=== PATIENT | male | born 1940 | race Caucasian/White ===

== ENCOUNTER 2016-10-25 10:55 | Inpatient (IN) | payer MEDICARE, MEDICAID ==
[~2016-10-25] VITALS: Ht 167.6 cm; Wt 58.1 kg
[2016-10-25] VITALS (9 sets, daily range): BP systolic 127–180; BP diastolic 59–95; PULSE 74–105; RESP 18–20; TEMP 98.5–100; O2SAT 94–99
[2016-10-25] MEDS ORDERED: LORA-361 PO (11:02)
[2016-10-25] MEDS ORDERED: FISHCAP4 PO (11:02)
[2016-10-25] MEDS ORDERED: SODIUM CHLOR 0.9% 1000 ML INJ 1,000 ML IV SCH (11:23)
[2016-10-25] MEDS ORDERED: DIATRIZOATE MEGLUM/DIATRIZOATE SOD 9 ML CUP ONE (11:28)
[2016-10-25] MEDS ORDERED: ONDANSETRON HCL 4 MG/2 ML VIAL IVP ONE (11:30)
[2016-10-25] MEDS ORDERED: SODIUM CHLORIDE 0.9% FLUSH 10 ML FLUSH IV FLUSH PRN (11:30)
--- NOTE | 2016-10-25 11:46 | PD ---
HPI Chief Complaint: GI Complaint Time Seen by Provider: 11:22 Travel History International Travel<30 days: No Contact w/Intl Traveler<30days: No Traveled to known affect area: No History of Present Illness HPI Patient is a 75-year-old male who presents to emergency room with complaints of abdominal pain and constipation. Reports that he normally has bowel movements every single day, reports that for the past 2 weeks, he has been feeling constipated and has had problems having normal bowel movements. Patient reports that he has been having increased abdominal pain, reports pain is greatest to his lower abdomen as well as his groin. Patient reports that he has history of right-sided inguinal hernia surgery in the past, reports that he is concerned for possible bowel obstruction. Reports that he has noticed blood in his stools as well as "pus from my rectum" for the past 2 weeks. Reports that he has never seen a generator man and has not had a colonscopy study in the past. Patient with no fevers or chills at this time. Reports that he has been feeling nauseous with no vomiting. Patient with no recent travels or trips. PFSH Past Medical History Cardiovascular Problems: Yes (chf) Congestive Heart Failure: Yes Tetanus Vaccination: > 5 Years Influenza Vaccination: No Past Surgical History Abdominal Surgery: Yes (hernia) Social History Alcohol Use: No Tobacco Use: Yes (marijuana) Substance Use: No Allergies-Medications (Allergen,Severity, Reaction): Coded Allergies: Codeine (Verified Allergy, Severe, Anaphylaxis, 10/25/16) after 3 days Latex (Verified Allergy, Severe, Rash, 10/25/16) Uncoded Allergies: stroids (Allergy, Severe, Anaphylaxis, 10/25/16) Reported Meds & Prescriptions Reported Meds & Active Scripts Active Reported Fish Oil + D3 (Fish Oil-Cholecalciferol) 1,200-1,000 Mg-Unit Cap 1 Cap PO DAILY Claritin (Loratadine) 10 Mg Tab 10 Mg PO DAILY Review of Systems General / Constitutional: No: Fever Eyes: No: Visual changes HENT: No: Headaches Cardiovascular: No: Chest Pain or Discomfort Respiratory: No: Shortness of Breath Gastrointestinal: Positive: Nausea, Abdominal Pain, Constipation Genitourinary: No: Dysuria Musculoskeletal: No: Pain Skin: No Rash Neurologic: No: Weakness Psychiatric: No: Depression Endocrine: No: Polydipsia Hematologic/Lymphatic: No: Easy Bruising Physical Exam Narrative GENERAL: Mild distress SKIN: Focused skin assessment warm/dry. HEAD: Atraumatic. Normocephalic. EYES: Pupils equal and round. No scleral icterus. No injection or drainage. ENT: No nasal bleeding or discharge. Mucous membranes pink and moist. NECK: Trachea midline. No JVD. CARDIOVASCULAR: Regular rate and rhythm. No murmur appreciated. RESPIRATORY: No accessory muscle use. Clear to auscultation. Breath sounds equal bilaterally. GASTROINTESTINAL: Abdomen soft, increased tenderness to lower abdomen with no guarding on exam. Rectal exam as well as exam was performed with RN at bedside Rectal exam: Nonthrombosed external hemorrhoids, no obvious pus from rectum, heme-negative stools exam: Testes descended bilaterally, no penile drainage, normal cremasteric reflex MUSCULOSKELETAL: No obvious deformities. No clubbing. No cyanosis. No edema. NEUROLOGICAL: Awake and alert. No obvious cranial nerve deficits. Motor grossly within normal limits. Normal speech. PSYCHIATRIC: Appropriate mood and affect; insight and judgment normal. Data Data Last Documented VS Vital Signs Date Time Temp Pulse Resp B/P Pulse Ox O2 Delivery O2 Flow Rate FiO2 10/25/16 11:39 96 Room Air 10/25/16 10:59 98.5 105 18 149/95 Orders Complete Blood Count With Diff (10/25/16 11:23) Comprehensive Metabolic Panel (10/25/16 11:23) Lipase (10/25/16 11:23) Prothrombin Time / Inr (Pt) (10/25/16 11:23) Act Partial Throm Time (Ptt) (10/25/16 11:23) Urinalysis - C+S If Indicated (10/25/16 11:23) Ct Abd/Pel W Iv Contrast(Rout) (10/25/16 11:23) Iv Access Insert/Monitor (10/25/16 11:23) Ecg Monitoring (10/25/16 11:23) Oximetry (10/25/16 11:23) Ondansetron Inj (Zofran Inj) (10/25/16 11:30) Sodium Chlor 0.9% 1000 Ml Inj (Ns 1000 M (10/25/16 11:23) Sodium Chloride 0.9% Flush (Ns Flush) (10/25/16 11:30) Diatrizoate Liq (Md Gastroview Liq) (10/25/16 11:28) Oral Contrast - Adult (10/25/16 11:38) Potassium Chloride (Kcl) (10/25/16 13:00) Potassium Phosphate Inj (Potassium Phosp (10/25/16 13:00) Iohexol 350 Inj (Omnipaque 350 Inj) (10/25/16 12:50) Ciprofloxacin 400 Mg Premix (Cipro 400 M (10/25/16 13:45) Metronidazole 500 Mg Inj (Flagyl 500 Mg (10/25/16 13:45) Admit Order (Ed Use Only) (10/25/16 13:44) Labs Laboratory Tests Test 10/25/16 10/25/16 11:30 11:40 Urine Collection Type CLEAN CATCH Urine Color YELLOW Urine Turbidity CLEAR Urine pH 6.0 Urine Specific [place] 1.025 Urine Protein 30 mg/dL Urine Glucose (UA) NEG mg/dL Urine Ketones 40 mg/dL Urine Occult Blood TRACE Urine Nitrite NEG Urine Bilirubin NEG Urine Leukocyte Esterase NEG Urine RBC 0-3 /hpf Urine WBC 3-5 /hpf Urine Squamous Epithelial 0-5 /hpf Cells Urine Calcium Oxalate Crystals FEW /hpf Urine Mucus MOD /lpf Microscopic Urinalysis Comment CULT NOT INDICATED Urine Collection Time 11:30 White Blood Count 13.5 TH/MM3 Red Blood Count 5.30 MIL/MM3 Hemoglobin 15.2 GM/DL Hematocrit 45.3 % Mean Corpuscular Volume 85.4 FL Mean Corpuscular Hemoglobin 28.7 PG Mean Corpuscular Hemoglobin 33.6 % Concent Red Cell Distribution Width 13.2 % Platelet Count 518 TH/MM3 Mean Platelet Volume 8.2 FL Neutrophils (%) (Auto) 80.3 % Lymphocytes (%) (Auto) 10.9 % Monocytes (%) (Auto) 6.6 % Eosinophils (%) (Auto) 0.2 % Basophils (%) (Auto) 2.0 % Neutrophils # (Auto) 10.8 TH/MM3 Lymphocytes # (Auto) 1.5 TH/MM3 Monocytes # (Auto) 0.9 TH/MM3 Eosinophils # (Auto) 0.0 TH/MM3 Basophils # (Auto) 0.3 TH/MM3 CBC Comment DIFF FINAL Differential Comment Prothrombin Time 11.7 SEC Prothromb Time International 1.1 RATIO Ratio Activated Partial 27.9 SEC Thromboplast Time Sodium Level 139 MEQ/L Potassium Level 2.9 MEQ/L Chloride Level 98 MEQ/L Carbon Dioxide Level 34.0 MEQ/L Anion Gap 7 MEQ/L Blood Urea Nitrogen 7 MG/DL Creatinine 0.72 MG/DL Estimat Glomerular Filtration 107 ML/MIN Rate Random Glucose 112 MG/DL Calcium Level 9.1 MG/DL Total Bilirubin 0.7 MG/DL Aspartate Amino Transf 6 U/L (AST/SGOT) Alanine Aminotransferase 9 U/L (ALT/SGPT) Alkaline Phosphatase 78 U/L Total Protein 8.1 GM/DL Albumin 2.9 GM/DL Lipase 168 U/L MDM Medical Decision Making Medical Screen Exam Complete: Yes Emergency Medical Condition: Yes Interpretation(s) Vital Signs Date Time Temp Pulse Resp B/P Pulse Ox O2 Delivery O2 Flow Rate FiO2 10/25/16 10:59 98.5 105 18 149/95 94 Differential Diagnosis Inguinal hernia, small bowel obstruction, constipation, UTI, GI bleed, external hemorrhoids Narrative Course Patient is a 75-year-old male who presents to emergency room with complaints of abdominal pain, constipation, pus and blood from his rectum for the past 2 weeks. On evaluation, patient is tender to his lower abdomen, no rebound or guarding. Patient does appear to have a right-sided inguinal hernia, there is no signs of incarceration on exam. On rectal exam, patient has external hemorrhoids which are nonthrombosed and not bleeding at this time, patient with heme-negative stools. Plan to obtain lab work as well as CAT scan the abdomen pelvis with by mouth contrast for evaluation of possible small obstruction versus constipation. CBC & BMP Diagram 10/25/16 11:[address] Rodriguez who accepts patient to service I did review all labs and all studies of patient in detail. Patient agreeable to admission to hospital. Diagnosis Primary Impression: Diverticulitis Qualified Code: K57.92 - Diverticulitis of intestine without perforation or abscess without bleeding, unspecified part of intestinal tract Additional Impression: Hypokalemia Admitting Information Admitting Physician Requests: Admit Jill Monzon DO Oct 25, 2016 11:46
[2016-10-25 11:51] LABS: BLOOD, URINE TRACE (NEG); GLUCOSE,URINE NEG (NEG); KETONE, URINE 40 mg/dL (NEG); NITRITE,URINE NEG (NEG)
[2016-10-25 11:51] LABS: AUTOMATED NEUTROPHIL # 10.8 TH/MM3 (1.8-7.7); BASOPHIL # 0.3 TH/MM3 (0-0.2); EOSINOPHIL % 0.2 % (0.0-4.0); HEMATOCRIT 45.3 % (39.0-51.0); LYMPH % 10.9 % (9.0-44.0); LYMPHOCYTE # 1.5 TH/MM3 (1.0-4.8); MEAN CELL VOLUME 85.4 FL (80.0-100.0); MEAN CORPUSCULAR HEMOGLOBIN 28.7 PG (27.0-34.0); MEAN CORPUSCULAR HGB CONC 33.6 % (32.0-36.0); MONO % 6.6 % (0.0-8.0); NEUT % 80.3 % (16.0-70.0); PLATELET COUNT 518 TH/MM3 (150-450); RED CELL DISTRIBUTION WIDTH 13.2 % (11.6-17.2); WHITE BLOOD COUNT 13.5 TH/MM3 (4.0-11.0)
[2016-10-25 11:54] LABS: HEMO FLAGS DIFF FINAL
[2016-10-25 11:56] LABS: CALCIUM OXALATE CRYSTALS,URINE FEW /hpf; METHOD OF COLLECTION CLEAN CATCH; MUCUS URINE MOD /lpf (OCC); RBC, URINE 0-3 /hpf (0-3); SQUAMOUS EPITHELIAL CELL URINE 0-5 /hpf (0-5); URINE COLOR YELLOW (YELLW/STRAW)
[2016-10-25 11:57] LABS: COMMENT (UR) CULT NOT INDICATED; CULTURE IF INDICATED CULT NOT INDICATED
[2016-10-25 12:08] LABS: APTT (PATIENT) 27.9 SEC (24.3-30.1); INTERNATIONAL NORMALIZED RATIO 1.1 RATIO; PROTHROMBIN TIME - PATIENT 11.7 SEC (9.8-11.6)
[2016-10-25 12:14] LABS: ALKALINE PHOSPHATASE 78 U/L (45-117); ALT (GPT) 9 U/L (12-78); ANION GAP 7 MEQ/L (5-15); AST (GOT) 6 U/L (15-37); BLOOD UREA NITROGEN 7 MG/DL (7-18); CHLORIDE 98 MEQ/L (98-107); GLOMERULAR FILTRATION RATE 107 ML/MIN (>89); SODIUM (NA) 139 MEQ/L (136-145); TOTAL BILIRUBIN ADULT 0.7 MG/DL (0.2-1.0)
[2016-10-25 12:15] LABS: POTASSIUM 2.9 MEQ/L (3.5-5.1)
[2016-10-25] MEDS ORDERED: IOHEXOL 350 MG/ML 10 ML VIAL (for RAD DIAG) IV ONE (12:50)
[2016-10-25] MEDS ORDERED: POTASSIUM CHLORIDE 20 MEQ CONTROLLED RELEASE TAB PO ONE (13:00)
[2016-10-25] MEDS ORDERED: POTASSIUM PHOSPHATE INJ 30 MMOL in SODIUM CHLOR 0.9% 250 ML INJ 250 ML IV ONE (13:00)
--- NOTE | 2016-10-25 13:32 | RADHPO ---
EXAM DATE/TIME: 10/25/2016 12:42 [facility] COMPARISON: No previous studies available for comparison. INDICATIONS : Diffuse abdominal pain. Last bowel movement was two weeks ago. IV CONTRAST: 95 cc Omnipaque 350 (iohexol) IV ORAL CONTRAST: Prescribed oral contrast ingested. RADIATION DOSE: 5.27 CTDIvol (mGy) MEDICAL HISTORY : Congestive heart failure. SURGICAL HISTORY : Hernia repair. ENCOUNTER: Initial ACUITY: 2 weeks PAIN SCALE: 4/10 LOCATION: Bilateral abdomen/pelvis TECHNIQUE: Volumetric scanning of the abdomen and pelvis was performed. Using automated exposure control and ad justment of the mA and/or kV according to patient size, radiation dose was kept as low as reasonably achievable to obtain optimal diagnostic quality images. FINDINGS: The lung bases are clear. The liver is free of focal defects. Spleen, pancreas and adrenals are unr emarkable. Bilateral small renal cysts are noted. There is moderate stool throughout the colon with inflammatory changes in the sigmoid colon associated with diverticula consistent with acute divertic ulitis without abscess formation. This involves a long segment of the sigmoid extending down almost to the rectus sigmoid. There is very small amount of fluid in the bowel wall associated with this. There is no free air. CONCLUSION: Evidence for significant diverticulitis in the pelvis. There is no discernible or drainable abscess at this time. This involves a long segment of the sigmoid colon. Jered Jack MD FACR on October 25, 2016 at 12:57 Board Certified Radiologist. This report was verified electronically.
[2016-10-25] MEDS ORDERED: metroNIDAZOLE 500 MG INJ 100 ML IV ONE (13:45)
[2016-10-25] MEDS ORDERED: ACETAMINOPHEN 325 MG TAB PO PRN (13:45)
[2016-10-25] MEDS ORDERED: NALOXONE HCL 0.4 MG/ML AMP IV PRN (13:45)
[2016-10-25] MEDS ORDERED: CIPROFLOXACIN 400 MG PREMIX 200 ML IV ONE (13:45)
[2016-10-25] MEDS ORDERED: MORPHINE SULFATE 4 MG/ML INJ IV PRN (13:45)
--- NOTE | 2016-10-25 17:54 | HHI.HP ---
[facility] Primary Care Physician No Primary Care Physician Admission Diagnosis Diverticulitis Diagnoses: (1) Sepsis Diagnosis: Principal (2) Diverticulitis Diagnosis: Principal (3) Melena Diagnosis: Secondary (4) Abdominal pain Diagnosis: Secondary (5) Hypokalemia Diagnosis: Principal (6) Leucocytosis Diagnosis: Principal Chief Complaint: Blood and pus in stool, lower abdomen and groin pain Travel History International Travel<30 Days: No Contact w/Intl Traveler <30 Da: No Traveled to Known Affected Are: No Sepsis Criteria SIRS Criteria (2 or more): Heart rate over 90, WBC > 00796, < 4000 or > 10% bands Sepsis Criteria (SIRS+source): Infect source susp/known Criteria Outcome: Meets sepsis criteria History of Present Illness Mr. Moreno is a 75-year-old male with known history of CHF, external hemorrhoids, hx of right inguinal hernia repair who presents to the ED with complaints of ongoing constipation for the past two weeks with 'the feeling of never fully defecating'. During that time, he admits to the presence of blood and pus in stool. Patient also reports severe pain that began upon awakening this am which occurs mostly in the groin and lower abdominal area. He does admit to occasional fever and diaphoretic episodes, but upon presentation he is afebrile. Denies taking anything for constipation or any pain medication, but does admit to daily marijuana use 'for pain and heart control'. Abdominal/ Pelvis CT reveals significant diverticulitis in the pelvis, involving the long segment of the colon with no presence of abscess. Patient denies following a email production consultant or ever having an EGD or colonoscopy in the past. Denies nausea, vomiting, chest pain, decreased appetite or shortness of breath. Review of Systems Constitutional: COMPLAINS OF: Diaphoretic episodes, Fever, Chills, DENIES: Fatigue, Weight gain, Weight loss, Dizziness, Change in appetite, Night Sweats Endocrine: DENIES: Heat/cold intolerance, Polydipsia, Polyuria, Polyphagia Eyes: DENIES: Blurred vision, Diplopia, Eye inflammation, Eye pain, Vision loss , Photosensitivity, Double Vision Ears, nose, mouth, throat: DENIES: Tinnitus, Hearing loss, Vertigo, Nasal discharge, Oral lesions, Throat pain, Hoarseness, Ear Pain, Running Nose, Epistaxis, Sinus Pain, Toothache, Odynophagia Respiratory: DENIES: Apneas, Cough, Snoring, Wheezing, Hemoptysis, Sputum production, Shortness of breath Cardiovascular: DENIES: Chest pain, Palpitations, Syncope, Dyspnea on Exertion , PND, Lower Extremity Edema, Orthopnea, Claudication Gastrointestinal: COMPLAINS OF: Abdominal pain, Bloody stools, DENIES: Black stools, Constipation, Diarrhea, Nausea, Vomiting, Difficulty Swallowing, Anorexia Genitourinary: DENIES: Sexual dysfunction, Urinary frequency, Urinary incontinence, Urgency, Hematuria, Dysuria, Nocturia, Penile Discharge, Testicular Pain, Testicular Swelling Musculoskeletal: DENIES: Joint pain, Muscle aches, Stiffness, Joint Swelling, Back pain, Neck pain Integumentary: DENIES: Abnormal pigmentation, Nail changes, Pruritus, Rash Hematologic/lymphatic: DENIES: Bruising, Lymphadenopathy Immunologic/allergic: DENIES: Eczema, Urticaria Neurologic: DENIES: Abnormal gait, Headache, Localized weakness, Paresthesias, Seizures, Speech Problems, Tremor, Poor Balance Past Family Social History Past Medical History Congestive heart failure External Hemorrhoids Right Inguinal hernia Past Surgical History Right inguinal hernia repair Reported Medications Reported Meds & Active Scripts Active Reported Fish Oil + D3 (Fish Oil-Cholecalciferol) 1,200-1,000 Mg-Unit Cap 1 Cap PO DAILY Claritin (Loratadine) 10 Mg Tab 10 Mg PO DAILY Allergies: Coded Allergies: Codeine (Verified Allergy, Severe, Anaphylaxis, 10/25/16) after 3 days Latex (Verified Allergy, Severe, Rash, 10/25/16) Uncoded Allergies: stroids (Allergy, Severe, Anaphylaxis, 10/25/16) Family History Father of a stroke. Mother had metastatic breast cancer which spread to the brain. Social History Patient lives independently. Denies alcohol use. Does admit to daily marijuana use. Denies any other illicit drug use. Patient is a vegetarian. Physical Exam Vital Signs Vital Signs Date Time Temp Pulse Resp B/P Pulse Ox O2 Delivery O2 Flow Rate FiO2 10/25/16 16:03 74 18 180/59 99 Room Air 10/25/16 15:00 80 18 155/88 98 Room Air 10/25/16 14:00 77 18 160/84 98 Room Air 10/25/16 12:30 80 18 158/88 98 Room Air 10/25/16 11:39 96 Room Air 10/25/16 10:59 98.5 105 18 149/95 94 Physical Exam GENERAL: This is a well-nourished, well-developed patient, in no apparent distress. SKIN: No rashes, ecchymoses or lesions. Cool and dry. HEAD: Atraumatic. Normocephalic. No temporal or scalp tenderness. EYES: Pupils equal round and reactive. Extraocular motions intact. No scleral icterus. No injection or drainage. Lateral nystagmus noted. ENT: Nose without bleeding, purulent drainage or septal hematoma. Throat without erythema, tonsillar hypertrophy or exudate. Uvula midline. Airway patent. NECK: Trachea midline. No JVD or lymphadenopathy. Supple, nontender, no meningeal signs. CARDIOVASCULAR: Regular rate and rhythm without murmurs, gallops, or rubs. RESPIRATORY: Clear to auscultation. Breath sounds equal bilaterally. No wheezes , rales, or rhonchi. GASTROINTESTINAL: Abdomen soft, nondistended. No hepato-splenomegaly, or palpable masses. Pain noted in bilateral lower quadrant abdominal area upon palpation. MUSCULOSKELETAL: Extremities without clubbing, cyanosis, or edema. No joint tenderness, effusion, or edema noted. No calf tenderness. Negative Homans sign bilaterally. NEUROLOGICAL: Awake and alert. Cranial nerves II through XII intact. Motor and sensory grossly within normal limits. Five out of 5 muscle strength in all muscle groups. Normal speech. Laboratory Laboratory Tests Test 10/25/16 10/25/16 11:30 11:40 Urine Collection Type CLEAN CATCH Urine Color YELLOW Urine Turbidity CLEAR Urine pH 6.0 Urine Specific [place] 1.025 Urine Protein 30 Urine Glucose (UA) NEG Urine Ketones 40 Urine Occult Blood TRACE Urine Nitrite NEG Urine Bilirubin NEG Urine Leukocyte Esterase NEG Urine RBC 0-3 Urine WBC 3-5 Urine Squamous Epithelial 0-5 Cells Urine Calcium Oxalate Crystals FEW Urine Mucus MOD Microscopic Urinalysis Comment CULT NOT INDICATED Urine Collection Time 11:30 White Blood Count 13.5 Red Blood Count 5.30 Hemoglobin 15.2 Hematocrit 45.3 Mean Corpuscular Volume 85.4 Mean Corpuscular Hemoglobin 28.7 Mean Corpuscular Hemoglobin 33.6 Concent Red Cell Distribution Width 13.2 Platelet Count 518 Mean Platelet Volume 8.2 Neutrophils (%) (Auto) 80.3 Lymphocytes (%) (Auto) 10.9 Monocytes (%) (Auto) 6.6 Eosinophils (%) (Auto) 0.2 Basophils (%) (Auto) 2.0 Neutrophils # (Auto) 10.8 Lymphocytes # (Auto) 1.5 Monocytes # (Auto) 0.9 Eosinophils # (Auto) 0.0 Basophils # (Auto) 0.3 CBC Comment DIFF FINAL Differential Comment Prothrombin Time 11.7 Prothromb Time International 1.1 Ratio Activated Partial 27.9 Thromboplast Time Sodium Level 139 Potassium Level 2.9 Chloride Level 98 Carbon Dioxide Level 34.0 Anion Gap 7 Blood Urea Nitrogen 7 Creatinine 0.72 Estimat Glomerular Filtration 107 Rate Random Glucose 112 Calcium Level 9.1 Total Bilirubin 0.7 Aspartate Amino Transf 6 (AST/SGOT) Alanine Aminotransferase 9 (ALT/SGPT) Alkaline Phosphatase 78 Total Protein 8.1 Albumin 2.9 Lipase 168 Date/Time Procedure Status Source Growth 10/25/16 15:35 Stool Occult Blood ([facility]) Received Stool Stool Pending Result Diagram: 10/25/16 1140 10/25/16 1140 Septic Shock Reassessment Heart: Regular rate and rhythm Lungs: Clear, Crackles Skin: Warm, Moist Peripheral Pulses: Bounding Right Radial Bounding Left Radial Capillary Refill: Brisk, <2 seconds Assessment and Plan Assessment and Plan Mr. Moreno is a 75-year-old male who presents with ongoing complaints of constipation, abdominal pain and presence of blood and pus in the stool for 2 weeks. Sepsis - Patient criteria on admission with leukocytosis, tachycardia, sigmoid diverticulitis seen on CT - Continue antibiotics include Cipro and Flagyl - Continue to follow CBC for leukocytosis - Urinalysis is clear. Diverticulitis, GI bleed, Constipation, External hemorrhoids, - Abdominal/Pelvis CT showing significant diverticulitis in the pelvis, involving the long segment of the colon with no presence of abscess. - Start antibiotic therapy, Flagyl and Cipro - Consult GI, appreciate input - Heme stool sample negative, occult stool pending - Monitor H&H, currently 15.2 - Clear liquid diet - Control pain, PRN morphine Hypokalemia - Potassium was replaced emergency department - Monitor electrolytes closely, replace as needed. DVT Prevention - Sequential compression devices - Active bleeding, anticoagulation contraindicated at this time, GI consulted. Written by Armaan Mendoza, acting as scribe for Dr. Rodriguez on 10/25/16 at 17:53. All or portions of this note were transcribed by scribe Armaan Mendoza. I, Dr. Armaan Rodriguez personally performed the history, physical exam, and medical decision making; and confirmed the accuracy of the information in the transcribed note. Authenticated by Dr. Armaan Rodriguez on 10/25/16 at 18:35. Problem Qualifiers (1) Sepsis: Qualified Code: A41.9 - Sepsis, due to unspecified organism (2) Abdominal pain: Qualified Code: R10.30 - Lower abdominal pain (3) Leucocytosis: Qualified Code: D72.829 - Leukocytosis, unspecified type Armaan Mendoza Oct 25, 2016 17:54 Armaan Rodriguez MD Oct 25, 2016 18:36
[2016-10-25] MEDS: CIPROFLOXACIN 500 MG TAB PO SCH (21:30)
--- NOTE | 2016-10-25 21:59 | MB ---
cc: ZHANE CHOWDARY M.D. DATE OF CONSULTATION: 10/25/2016 REASON FOR CONSULTATION: Abdominal pain, possible GI bleed. Thank you for the consultation. HISTORY OF PRESENT ILLNESS: The patient is a 75-year-old male who has multiple medical problems. The patient has abdominal pain in the left lower quadrant and some pink discharge. Patient known to have hemorrhoids. Also he has inguinal hernia. He said that he felt a pop in there and he had enlargement of the left lower quadrant area that he pushed it back. It got better after that. He had a CT scan which showed possible diverticulitis. The pink discharge was from straining and he said he did not have any bowel movement in the last few days. SOCIAL HISTORY Positive for marijuana. No alcohol. No other drugs. FAMILY HISTORY Significant for stroke, breast cancer with mets. ALLERGIES CODEINE, LATEX. MEDICATIONS: Reviewed in the chart. PAST SURGICAL HISTORY Significant for right inguinal hernia repair. PAST MEDICAL HISTORY: Significant for: 1. Congestive heart failure. 2. Questionable history of MS according to him. 3. Right inguinal hernia. 4. External hemorrhoid. PHYSICAL EXAMINATION Alert, oriented, no acute distress at this time. Vital signs: Stable. HEENT: Pupils are reactive to light. Neck: Supple. Chest: Clear to auscultation. Cardiac: Regular rate and rhythm. Abdomen: Soft, nondistended, mild tenderness in the left lower quadrant, questionable inguinal hernia. Positive bowel sounds. Extremities: No edema, clubbing or cyanosis. Neurologically intact. Psychologically appropriate. LABORATORY DATA White count 13.5, hemoglobin 15.2, platelet 518. INR 1.1. Potassium 2.9, AST 6, ALT 9. Albumin 2.9, lipase 168. CT scan showed significant diverticulitis in the pelvis. ASSESSMENT/PLAN A 75-year-old male with abdominal pain, questionable pink discharge, GI bleed. Hemoglobin stable. Could be related to dehydration that it may drop down, but most likely hemorrhoid related. The patient also has diverticulitis on CT scan with abdominal pain. He was started on antibiotics. Will continue that. Inguinal hernia, consider surgical evaluation. The patient will need colonoscopy. This can be done as an outpatient. The patient can have stool softener for constipation. Will follow up with you. Thank you for the consultation MD HUSSAIN Gant/ANNETTA /7:34 PM /9:16 PM
[2016-10-26] VITALS (8 sets, daily range): BP systolic 105–147; BP diastolic 67–93; PULSE 87–98; RESP 18–20; TEMP 97.2–100.4; O2SAT 93–96
[2016-10-26] MEDS: ONDANSETRON HCL 4 MG/2 ML VIAL IVP PRN ×2 (00:51→20:19)
[2016-10-26] MEDS: metroNIDAZOLE 500 MG TAB PO SCH ×4 (00:54→21:31)
[2016-10-26 06:56] LABS: AUTOMATED NEUTROPHIL # 11.2 TH/MM3 (1.8-7.7); BASOPHIL % 0.2 % (0.0-2.0); EOSINOPHIL % 0.1 % (0.0-4.0); HEMATOCRIT 39.2 % (39.0-51.0); LYMPH % 14.3 % (9.0-44.0); MEAN CELL VOLUME 85.5 FL (80.0-100.0); MEAN CORPUSCULAR HEMOGLOBIN 28.3 PG (27.0-34.0); MONO % 7.6 % (0.0-8.0); NEUT % 77.8 % (16.0-70.0); PLATELET COUNT 477 TH/MM3 (150-450); RED BLOOD COUNT 4.58 MIL/MM3 (4.50-5.90); RED CELL DISTRIBUTION WIDTH 13.4 % (11.6-17.2); WHITE BLOOD COUNT 14.3 TH/MM3 (4.0-11.0)
[2016-10-26 07:06] LABS: POTASSIUM 3.5 MEQ/L (3.5-5.1)
[2016-10-26 07:09] LABS: BICARBONATE 27.5 MEQ/L (21.0-32.0)
[2016-10-26 07:28] LABS: HEMO FLAGS AUTO DIFF
[2016-10-26 08:45] LABS: SCAN/DIFF AUTO DIFF CONFIRMED
[2016-10-26] MEDS: CIPROFLOXACIN 500 MG TAB PO SCH ×2 (10:18→21:31)
--- NOTE | 2016-10-26 14:56 | HHI.PR ---
Subjective Remarks Patient seen and examined by myself and Dr. Peck. Patient lying in bed comfortably. Has tolerated clear liquid diet. Still complains of mild abdominal pain in left lower quadrant. Does admit to continued pus from rectum, denies any bleeding or pink tinged output. Does complain of "pee being dark today". Denies any further nausea, vomiting or diarrhea. Low-grade fevers early this am , currently afebrile. Objective Vitals Vital Signs Date Time Temp Pulse Resp B/P Pulse Ox O2 Delivery O2 Flow Rate FiO2 10/26/16 12:00 98.4 97 20 126/86 94 10/26/16 08:01 96 10/26/16 08:00 98.1 93 20 105/67 94 10/26/16 04:00 99.4 96 20 109/75 93 10/26/16 00:00 100.4 98 20 141/83 93 10/25/16 22:00 100.0 92 20 135/85 95 10/25/16 19:07 93 127/71 94 Room Air 10/25/16 18:00 77 18 162/84 98 Room Air 10/25/16 16:03 74 18 180/59 99 Room Air 10/25/16 15:00 80 18 155/88 98 Room Air I/O 10/25/16 10/25/16 10/25/16 10/26/16 10/26/16 10/26/16 07:00 15:00 23:00 07:00 15:00 23:00 Intake Total 490 ml 240 ml Output Total 250 ml Balance 240 ml 240 ml Intake Oral 240 ml 240 ml IV Total 250 ml Output Urine Total 250 ml # Voids 3 1 # Bowel Movements 0 Result Diagram: 10/26/16 0620 10/26/16 0620 Imaging Last Impressions Abdomen/Pelvis CT 10/25/16 1123 Signed Impressions: Service Date/Time: Tuesday, October 25, 2016 12:42 - CONCLUSION: Evidence for significant diverticulitis in the pelvis. There is no discernible or drainable abscess at this time. This involves a long segment of the sigmoid colon. Jered Jack MD FACR Objective Remarks GENERAL: This is a well-nourished, well-developed patient, in no apparent distress. SKIN: No rashes, ecchymoses or lesions. Cool and dry. HEAD: Atraumatic. Normocephalic. No temporal or scalp tenderness. EYES: Pupils equal round and reactive. Extraocular motions intact. No scleral icterus. No injection or drainage. Lateral nystagmus noted. ENT: Nose without bleeding, purulent drainage or septal hematoma. Throat without erythema, tonsillar hypertrophy or exudate. Uvula midline. Airway patent. NECK: Trachea midline. No JVD or lymphadenopathy. Supple, nontender, no meningeal signs. CARDIOVASCULAR: Regular rate and rhythm without murmurs, gallops, or rubs. RESPIRATORY: Clear to auscultation. Breath sounds equal bilaterally. No wheezes , rales, or rhonchi. GASTROINTESTINAL: Abdomen soft, nondistended. No hepato-splenomegaly, or palpable masses. Pain noted in left lower quadrant abdominal area upon palpation. MUSCULOSKELETAL: Extremities without clubbing, cyanosis, or edema. No joint tenderness, effusion, or edema noted. No calf tenderness. Negative Homans sign bilaterally. NEUROLOGICAL: Awake and alert. Cranial nerves II through XII intact. Motor and sensory grossly within normal limits. Five out of 5 muscle strength in all muscle groups. Normal speech. Urinary Catheter: No Vascular Central Line Catheter: No A/P Assessment and Plan Sepsis - leukocytosis present, WBC 14.3 today. Recheck in am. - Start IVF NS 84 ml/hr. - Tachycardia resolved, continue to monitor. - Continue antibiotics include Cipro and Flagyl - Urinalysis is clear. Diverticulitis, GI bleed, Constipation, External hemorrhoids - Abdominal/Pelvis CT showing significant diverticulitis in the pelvis, involving the long segment of the colon with no presence of abscess. - Continue Flagyl and Cipro - GI following, appreciate input - Heme and occult stool negative - Monitor H&H, currently 12.9 - Continue clear liquid diet - Control pain, PRN morphine Hypokalemia, resolved - Potassium 3.5 today. Redraw in am. - Monitor electrolytes closely, replace as needed. DVT Prevention - Sequential compression devices - Active bleeding, anticoagulation contraindicated at this time, GI consulted. Written by Armaan Mendoza PA-C, acting as scribe for Dr. Peck on 10/26/16 at 1547. The documentation accurately reflects the work and decisions performed face-to- face by Dr. Peck on 10/26/16 at 1545. Armaan Mendoza Oct 26, 2016 14:56
[2016-10-26] MEDS: SODIUM CHLOR 0.9% 1000 ML INJ 1,000 ML IV SCH (15:12)
[2016-10-27] VITALS (8 sets, daily range): BP systolic 114–134; BP diastolic 64–89; PULSE 71–105; RESP 16–24; TEMP 97.5–99.5; O2SAT 95–98
[2016-10-27] MEDS: SODIUM CHLOR 0.9% 1000 ML INJ 1,000 ML IV SCH ×2 (03:08→12:36)
[2016-10-27] MEDS: metroNIDAZOLE 500 MG TAB PO SCH ×3 (05:45→20:32)
[2016-10-27] MEDS: CIPROFLOXACIN 500 MG TAB PO SCH ×2 (08:22→20:32)
[2016-10-27] MEDS ORDERED: DOCUSATE SODIUM 50 MG/SENNA 8.6 MG TAB PO ONE (12:00)
[2016-10-27 13:01] LABS: AUTOMATED NEUTROPHIL # 12.5 TH/MM3 (1.8-7.7); BASOPHIL % 0.2 % (0.0-2.0); EOSINOPHIL % 0.1 % (0.0-4.0); HEMATOCRIT 40.5 % (39.0-51.0); HEMO FLAGS DIFF FINAL; LYMPH % 9.1 % (9.0-44.0); LYMPHOCYTE # 1.3 TH/MM3 (1.0-4.8); MEAN CELL VOLUME 84.7 FL (80.0-100.0); MONO % 4.1 % (0.0-8.0); NEUT % 86.5 % (16.0-70.0); PLATELET COUNT 526 TH/MM3 (150-450); RED BLOOD COUNT 4.78 MIL/MM3 (4.50-5.90); RED CELL DISTRIBUTION WIDTH 13.3 % (11.6-17.2); WHITE BLOOD COUNT 14.4 TH/MM3 (4.0-11.0)
--- NOTE | 2016-10-27 14:29 | HHI.PR ---
Subjective Remarks Patient seen and examined by myself and Dt. Peck. Patient has not further complaints, states pain is adequately controlled and improved. Tolerating clear liquid diet, desires to advance diet. Has not had a BM and waiting on effect of stool softener. Denies any further blood in stool. Low-grade temps overnight. Objective Vitals Vital Signs Date Time Temp Pulse Resp B/P Pulse Ox O2 Delivery O2 Flow Rate FiO2 10/27/16 12:00 97.7 105 24 122/89 95 10/27/16 07:58 98.9 90 24 119/64 95 10/27/16 04:00 99.1 90 18 127/79 97 10/27/16 00:00 99.4 90 18 114/66 98 10/26/16 20:00 98.7 90 18 147/93 96 10/26/16 20:00 96 10/26/16 15:05 133/84 10/26/16 15:01 97.2 87 20 132/79 96 10/26/16 15:01 136/92 I/O 10/26/16 10/26/16 10/26/16 10/27/16 10/27/16 10/27/16 07:00 15:00 23:00 07:00 15:00 23:00 Intake Total 240 ml 1152 ml 630 ml Balance 240 ml 1152 ml 630 ml Intake Oral 240 ml 240 ml 630 ml IV Total 912 ml Bladder Scan Volume Amount 0 ml # Voids 1 3 4 # Bowel Movements 0 1 1 Result Diagram: 10/27/16 1254 10/26/16 0620 Imaging Last Impressions Abdomen/Pelvis CT 10/25/16 1123 Signed Impressions: Service Date/Time: Tuesday, October 25, 2016 12:42 - CONCLUSION: Evidence for significant diverticulitis in the pelvis. There is no discernible or drainable abscess at this time. This involves a long segment of the sigmoid colon. Jered Jack MD FACR Objective Remarks GENERAL: This is a well-nourished, well-developed patient, in no apparent distress. SKIN: No rashes, ecchymoses or lesions. Cool and dry. HEAD: Atraumatic. Normocephalic. No temporal or scalp tenderness. EYES: Pupils equal round and reactive. Extraocular motions intact. No scleral icterus. No injection or drainage. Lateral nystagmus noted. ENT: Nose without bleeding, purulent drainage or septal hematoma. Throat without erythema, tonsillar hypertrophy or exudate. Uvula midline. Airway patent. NECK: Trachea midline. No JVD or lymphadenopathy. Supple, nontender, no meningeal signs. CARDIOVASCULAR: Regular rate and rhythm without murmurs, gallops, or rubs. RESPIRATORY: Clear to auscultation. Breath sounds equal bilaterally. No wheezes , rales, or rhonchi. GASTROINTESTINAL: Abdomen soft, nondistended. No hepato-splenomegaly, or palpable masses. Pain noted in left lower quadrant abdominal area upon palpation. MUSCULOSKELETAL: Extremities without clubbing, cyanosis, or edema. No joint tenderness, effusion, or edema noted. No calf tenderness. Negative Homans sign bilaterally. NEUROLOGICAL: Awake and alert. Cranial nerves II through XII intact. Motor and sensory grossly within normal limits. Five out of 5 muscle strength in all muscle groups. Normal speech. Urinary Catheter: No Vascular Central Line Catheter: No A/P Assessment and Plan Sepsis - leukocytosis present, WBC 14.4 today. - Continue IVF. - Continue antibiotics include Cipro and Flagyl - Urinalysis is clear. Diverticulitis, GI bleed, Constipation, External hemorrhoids - Abdominal/Pelvis CT showing significant diverticulitis in the pelvis, involving the long segment of the colon with no presence of abscess. - Continue Flagyl and Cipro - GI following, appreciate input - Heme and occult stool negative - Monitor H&H, currently 13.4 - Advance diet, assess tolerability. - Control pain, PRN morphine Hypokalemia, resolved - Electrolytes WNL. DVT Prevention - Sequential compression devices - Active bleeding, anticoagulation contraindicated at this time, GI consulted. Written by Armaan Mendoza PA-C, acting as scribe for Dr. Peck on 10/27/16 at 1405. The documentation accurately reflects the work and decisions performed face-to- face by Dr. Peck on 10/27/16 at 1405. Discharge Planning If tolerating advancement of diet, pain controlled and no further signs of bleeding patient will be discharged tomorrow am 10/28. All or portions of this note were transcribed by scribe Armaan Mendoza. I, Dr. Shruti Peck personally performed the history, physical exam, and medical decision making; and confirmed the accuracy of the information in the transcribed note. Armaan Mendoza Oct 27, 2016 14:29 Shruti Peck MD Oct 27, 2016 18:04
[2016-10-27] MEDS: DOCUSATE SODIUM 50 MG/SENNA 8.6 MG TAB PO SCH (20:32)
--- NOTE | 2016-10-27 20:55 | HHI.GIFU ---
Subjective Remarks feels better today, less abdominal pain, still no bowel movement Objective Vitals I&O Vital Signs Date Time Temp Pulse Resp B/P Pulse Ox O2 Delivery O2 Flow Rate FiO2 10/27/16 16:00 97.5 93 20 114/83 96 10/27/16 12:00 97.7 105 24 122/89 95 10/27/16 08:20 71 10/27/16 07:58 98.9 90 24 119/64 95 10/27/16 04:00 99.1 90 18 127/79 97 10/27/16 00:00 99.4 90 18 114/66 98 I/O 10/26/16 10/26/16 10/26/16 10/27/16 10/27/16 10/27/16 06:59 14:59 22:59 06:59 14:59 22:59 Intake Total 240 ml 1152 ml 630 ml 588 ml Balance 240 ml 1152 ml 630 ml 588 ml Intake Oral 240 ml 240 ml 630 ml IV Total 912 ml 588 ml Bladder Scan Volume Amount 0 ml # Voids 1 3 4 # Bowel Movements 0 1 1 Laboratory Laboratory Tests Test 10/27/16 12:54 White Blood Count 14.4 Red Blood Count 4.78 Hemoglobin 13.4 Hematocrit 40.5 Mean Corpuscular Volume 84.7 Mean Corpuscular Hemoglobin 28.0 Mean Corpuscular Hemoglobin 33.0 Concent Red Cell Distribution Width 13.3 Platelet Count 526 Mean Platelet Volume 7.5 Neutrophils (%) (Auto) 86.5 Lymphocytes (%) (Auto) 9.1 Monocytes (%) (Auto) 4.1 Eosinophils (%) (Auto) 0.1 Basophils (%) (Auto) 0.2 Neutrophils # (Auto) 12.5 Lymphocytes # (Auto) 1.3 Monocytes # (Auto) 0.6 Eosinophils # (Auto) 0.0 Basophils # (Auto) 0.0 CBC Comment DIFF FINAL Differential Comment Date/Time Procedure Status Source Growth 10/25/16 15:35 Stool Occult Blood ([facility]) - Final Complete Stool Stool HEMOCCULT NEGATIVE Physical Exam HEENT: Pupils round and reactive to light; normocephalic; atraumatic; no jaundice. Throat is clear. NECK: Neck is supple, no JVD, no lymphadenopathy. CHEST: Chest is clear to auscultation and percussion. CARDIAC: Regular rate and rhythm with no murmur gallop or rubs. ABDOMEN: Soft, nondistended, left lowe abdomen tender; no hepatosplenomegaly; bowel sounds are present in all four quadrants. EXTREMITIES: No clubbing, cyanosis, or edema. SKIN: Normal; no rash; no jaundice. STRAWHAT SIZER: No focal deficits; alert and oriented times three. Assessment and Plan Plan diverticulitis, doing beter, still with pain but much less, tolerating diet constipation, for many days, patient will need stool softener and possible enema in am if no bowel movement Merrill Schultz MD Oct 27, 2016 20:55
[2016-10-28] VITALS: BP 136/80; PULSE 89; RESP 18; TEMP 99.8; O2SAT 96
[2016-10-28] MEDS: SODIUM CHLOR 0.9% 1000 ML INJ 1,000 ML IV SCH ×2 (03:43→14:40)
[2016-10-28 04:00] VITALS: BP 130/81; PULSE 93; RESP 18; TEMP 98.9; O2SAT 95
[2016-10-28] MEDS: metroNIDAZOLE 500 MG TAB PO SCH ×3 (05:51→20:03)
[2016-10-28 06:53] LABS: AUTOMATED NEUTROPHIL # 9.6 TH/MM3 (1.8-7.7); BASOPHIL # 0.1 TH/MM3 (0-0.2); EOSINOPHIL # 0.1 TH/MM3 (0-0.4); EOSINOPHIL % 0.5 % (0.0-4.0); HEMATOCRIT 38.1 % (39.0-51.0); LYMPH % 13.9 % (9.0-44.0); LYMPHOCYTE # 1.7 TH/MM3 (1.0-4.8); MEAN CELL VOLUME 84.4 FL (80.0-100.0); MEAN CORPUSCULAR HEMOGLOBIN 28.2 PG (27.0-34.0); MEAN CORPUSCULAR HGB CONC 33.4 % (32.0-36.0); MONO % 5.2 % (0.0-8.0); NEUT % 79.4 % (16.0-70.0); PLATELET COUNT 473 TH/MM3 (150-450); RED BLOOD COUNT 4.51 MIL/MM3 (4.50-5.90); RED CELL DISTRIBUTION WIDTH 13.2 % (11.6-17.2); WHITE BLOOD COUNT 12.1 TH/MM3 (4.0-11.0)
[2016-10-28 06:57] LABS: HEMO FLAGS DIFF FINAL
[2016-10-28 07:01] LABS: POTASSIUM 3.5 MEQ/L (3.5-5.1)
[2016-10-28 07:05] LABS: BICARBONATE 25.8 MEQ/L (21.0-32.0); MAGNESIUM 2.1 MG/DL (1.5-2.5)
[2016-10-28 08:00] VITALS: BP 159/89; PULSE 101; PULSE 94; RESP 18; TEMP 99.5; O2SAT 94
[2016-10-28] MEDS: CIPROFLOXACIN 500 MG TAB PO SCH ×2 (09:42→19:59)
[2016-10-28] MEDS: DOCUSATE SODIUM 50 MG/SENNA 8.6 MG TAB PO SCH ×2 (09:43→20:00)
--- NOTE | 2016-10-28 10:11 | RADHPO ---
EXAM DATE/TIME: 10/28/2016 08:39 [facility] COMPARISON: No previous studies available for comparison. INDICATIONS : Constipation MEDICAL HISTORY : Congestive heart failure. SURGICAL HISTORY : None. ENCOUNTER: Subsequent ACUITY: 4 - 6 days PAIN SCORE: Non-responsive. LOCATION: Bilateral abdomen FINDINGS: The lung bases are clear. Moderate stool is seen scattered throughout the colon. Minimal small hansa l gas is noted. There is no evidence for obstruction. Degenerative changes are seen in the lumbar spine. CONCLUSION: Moderate stool throughout the colon. Jered Jack MD FACR on October 28, 2016 at 10:06 Board Certified Radiologist. This report was verified electronically.
--- NOTE | 2016-10-28 10:14 | RADHPO ---
EXAM DATE/TIME: 10/28/2016 08:56 [facility] COMPARISON: No previous studies available for comparison. INDICATIONS : Altered ,mental status RADIATION DOSE: 65.40 CTDIvol (mGy) MEDICAL HISTORY : Cardiovascular disease. SURGICAL HISTORY : None. ENCOUNTER: Initial ACUITY: 1 day PAIN SCALE: 4/10 LOCATION: cranial TECHNIQUE: Multiple contiguous axial images were obtained of the head. Using automated exposure control and adj ustment of the mA and/or kV according to patient size, radiation dose was kept as low as reasonably a chievable to obtain optimal diagnostic quality images. FINDINGS: CEREBRUM: The ventricles are normal for age. No evidence of midline shift, mass lesion, hemorrhage or acute in farction. No extra-axial fluid collections are seen. POSTERIOR FOSSA: The cerebellum and brainstem are intact. The 4th ventricle is midline. The cerebellopontine angle i s unremarkable. EXTRACRANIAL: The visualized portion of the orbits is intact. SKULL: The calvaria is intact. No evidence of skull fracture. CONCLUSION: No acute disease. Jered Jack MD FACR on October 28, 2016 at 10:13 Board Certified Radiologist. This report was verified electronically.
[2016-10-28 10:22] LABS: INDIRECT BILIRUBIN 0.4 MG/DL (0.0-0.8); TOTAL BILIRUBIN ADULT 0.5 MG/DL (0.2-1.0)
--- NOTE | 2016-10-28 11:08 | HHI.PR ---
Subjective Remarks Patient seen and examined by myself and Dr. Peck. Patient complaining of inability to move any extremities and severe weakness. Says "he is a vegetarian , has not ate and severely weak". Also states that his urine is very dark and has not had a bowel movement since he has been here. Denies any worsening pain. Objective Vitals Vital Signs Date Time Temp Pulse Resp B/P Pulse Ox O2 Delivery O2 Flow Rate FiO2 10/28/16 08:00 99.5 101 18 159/89 94 10/28/16 08:00 94 10/28/16 04:00 98.9 93 18 130/81 95 10/28/16 00:00 99.8 89 18 136/80 96 10/27/16 20:53 99.5 91 16 134/81 95 10/27/16 20:00 97 10/27/16 16:00 97.5 93 20 114/83 96 10/27/16 12:00 97.7 105 24 122/89 95 I/O 10/27/16 10/27/16 10/27/16 10/28/16 10/28/16 10/28/16 07:00 15:00 23:00 07:00 15:00 23:00 Intake Total 630 ml 1260 ml 672 ml Output Total 450 ml Balance 630 ml 1260 ml 222 ml Intake Oral 630 ml IV Total 1260 ml 672 ml Output Urine Total 450 ml # Voids 4 # Bowel Movements 1 Result Diagram: 10/28/16 0620 10/28/16 0620 Imaging Last [address] 10/28/16 0000 Signed Impressions: Service Date/Time: Friday, October 28, 2016 08:56 - CONCLUSION: No acute disease. Jered Jack MD FACR Abdomen/Pelvis CT 10/25/16 1123 Signed Impressions: Service Date/Time: Tuesday, October 25, 2016 12:42 - CONCLUSION: Evidence for significant diverticulitis in the pelvis. There is no discernible or drainable abscess at this time. This involves a long segment of the sigmoid colon. Jered Jack MD FACR Objective Remarks GENERAL: This is a well-developed patient, complaining of severe weakness and inability to move extremities. SKIN: No rashes, ecchymoses or lesions. Cool and dry. HEAD: Atraumatic. Normocephalic. No temporal or scalp tenderness. EYES: Pupils equal round and reactive. Extraocular motions intact. No scleral icterus. No injection or drainage. No nystagmus noted. ENT: Nose without bleeding, purulent drainage or septal hematoma. Throat without erythema, tonsillar hypertrophy or exudate. Uvula midline. Airway patent. NECK: Trachea midline. No JVD or lymphadenopathy. Supple, nontender, no meningeal signs. CARDIOVASCULAR: Regular rate and rhythm without murmurs, gallops, or rubs. RESPIRATORY: Clear to auscultation. Breath sounds equal bilaterally. No wheezes , rales, or rhonchi. GASTROINTESTINAL: Abdomen soft, nondistended. No hepato-splenomegaly, or palpable masses. Pain noted in left lower quadrant abdominal area upon palpation. MUSCULOSKELETAL: Extremities without clubbing, cyanosis, or edema. No joint tenderness, effusion, or edema noted. No calf tenderness. Negative Homans sign bilaterally. Retracted to pain without any abnormalities. When doing DTR's patient tightening up muscles. NEUROLOGICAL: Awake and alert. Cranial nerves II through XII intact. Motor and sensory grossly within normal limits. Five out of 5 muscle strength in all muscle groups. Normal speech. Urinary Catheter: No Vascular Central Line Catheter: No A/P Assessment and Plan Sepsis - leukocytosis present, WBC 12.1 today. - Continue IVF. - Continue antibiotics include Cipro and Flagyl - Urinalysis is clear. Diverticulitis, GI bleed, Constipation, External hemorrhoids - Abdominal/Pelvis CT showing significant diverticulitis in the pelvis, involving the long segment of the colon with no presence of abscess. - Continue Flagyl and Cipro - GI following, appreciate input - Heme and occult stool negative - Monitor H&H, currently 12.7 - Advance to regular diet, assess tolerability. - Control pain, PRN morphine - Abdomen X-ray ordered and reviewed: moderate stool throughout the colon. - Add milk of magnesia Muscle weakness - CT brain ordered and reviewed: no acute disease - Further labs ordered: albumin, albumin/globulin ratio, total protein, hepatic panel - PT eval and treat - Orthostatic blood pressures ordered - Close monitoring Hypokalemia, resolved - Electrolytes WNL. Constipation Milk of magnesia started KUB reviewed - stool throughout colon. Advance diet. Ambulation encouraged. DVT Prevention - Sequential compression devices - Active bleeding, anticoagulation contraindicated at this time, GI ff. Written by Armaan Mendoza PA-C, acting as scribe for Dr. Peck on 10/28/16 at 1230. The documentation accurately reflects the work and decisions performed face-to- face by Dr. Peck on 10/28/16 at 1230 Discharge Planning Patient has ate very little, weakness worsened as per him. PT consulted. Case management consulted to evaluate for SNF vs HHC. Patient declines to consider SNF. Ambulated well independently. Hopefully he will feel better after BM and improved PO intake. All or portions of this note were transcribed by scribe Armaan Mendoza. I, Dr. Shruti Peck personally performed the history, physical exam, and medical decision making; and confirmed the accuracy of the information in the transcribed note. Armaan Mendoza Oct 28, 2016 11:08 Shruti Peck MD Oct 28, 2016 18:32
[2016-10-28 12:00] VITALS: BP 152/82; PULSE 94; RESP 18; TEMP 98.2; O2SAT 93
[2016-10-28] MEDS: MAGNESIUM HYDROXIDE SUSP 30 ML CUP PO SCH ×2 (12:02→20:00)
[2016-10-28 16:00] VITALS: BP 107/73; PULSE 96; RESP 18; TEMP 97; O2SAT 96
[2016-10-28 20:00] VITALS: BP 143/99; PULSE 107; PULSE 98; RESP 20; TEMP 97.3; O2SAT 95
[2016-10-29] VITALS: BP 145/95; PULSE 93; RESP 18; TEMP 98.8; O2SAT 94
[2016-10-29] MEDS: SODIUM CHLOR 0.9% 1000 ML INJ 1,000 ML IV SCH ×2 (02:35→16:39)
[2016-10-29 04:00] VITALS: BP 145/95; PULSE 93; RESP 18; TEMP 98.9; O2SAT 94
[2016-10-29] MEDS: metroNIDAZOLE 500 MG TAB PO SCH (07:00)
[2016-10-29 08:00] VITALS: BP 141/73; PULSE 113; PULSE 96; RESP 18; TEMP 98.4; O2SAT 96
[2016-10-29] MEDS: ONDANSETRON HCL 4 MG/2 ML VIAL IVP PRN (09:10)
[2016-10-29] MEDS ORDERED: LACTULOSE SYRUP 20 GM/30 ML CUP PO ONE (11:00)
--- NOTE | 2016-10-29 11:21 | HHI.PR ---
Subjective Remarks The patient had an episode of vomiting this morning and has not taken his by mouth medications. He states he feels better now. However after I left the room the nurse came to tell me he had vomited again. The patient has had only one small bowel movement which I did see in the toilet and was brown. He states he has abdominal cramping from the laxatives. Objective Vitals Vital Signs Date Time Temp Pulse Resp B/P Pulse Ox O2 Delivery O2 Flow Rate FiO2 10/29/16 08:00 98.4 96 18 141/73 96 10/29/16 04:00 98.9 93 18 145/95 94 10/29/16 00:00 98.8 93 18 145/95 94 10/28/16 20:00 97.3 107 20 143/99 95 10/28/16 20:00 98 10/28/16 16:00 97.0 96 18 107/73 96 10/28/16 12:00 98.2 94 18 152/82 93 I/O 10/28/16 10/28/16 10/28/16 10/29/16 10/29/16 10/29/16 07:00 15:00 23:00 07:00 15:00 23:00 Intake Total 672 ml 725 ml 740 ml 240 ml Output Total 450 ml 750 ml Balance 222 ml -25 ml 740 ml 240 ml Intake Oral 725 ml 740 ml 240 ml IV Total 672 ml Output Urine Total 450 ml 750 ml # Voids 2 1 # Bowel Movements 0 0 Result Diagram: 10/28/1620 10/28/16619 Objective Remarks GENERAL: Well-nourished, well-developed pleasant male patient. Long chavira. Lean. SKIN: Warm and dry. HEAD: Normocephalic. EYES: No scleral icterus. No injection or drainage. NECK: Supple, trachea midline. No JVD or lymphadenopathy. CARDIOVASCULAR: Regular rate and rhythm without murmurs, gallops, or rubs. RESPIRATORY: Breath sounds equal and clear to auscultation bilaterally. No accessory muscle use. GASTROINTESTINAL: Abdomen soft, mildly tender throughout without guarding, nondistended. EXTREMITIES: No cyanosis, or edema. NEUROLOGICAL: Awake, alert, and oriented x 3. Non-focal. A/P Problem List: (1) Sepsis ICD Code: A41.9 Status: Acute (2) Diverticulitis ICD Code: K57.92 Status: Acute (3) Melena ICD Code: K92.1 Status: Resolved (4) Abdominal pain ICD Code: R10.9 Status: Acute (5) Hypokalemia ICD Code: E87.6 Status: Acute (6) Leucocytosis ICD Code: D72.829 Status: Acute (7) Constipation ICD Code: K59.00 Status: Acute (8) Vomiting ICD Code: R11.10 Status: Acute Assessment and Plan Sepsis - leukocytosis present, WBC 12.1 - recheck in morning. - Continue IVF. Normal saline 83 mL/h - Continue antibiotics include Cipro and Flagyl - change to IV route as he is vomiting this morning. - Urinalysis is clear. Diverticulitis, GI bleed, Constipation, External hemorrhoids - Abdominal/Pelvis CT showing significant diverticulitis in the pelvis, involving the long segment of the colon with no presence of abscess. - Continue Flagyl and Cipro - GI following, appreciate input - Heme and occult stool negative - Monitor H&H, currently 12.7 -Milk of magnesia twice a day -To collect suppository later today -KUB yesterday showed stool throughout colon -Diet as tolerated - Control pain, PRN morphine Muscle weakness - subjective. Patient ambulating well and independently. Encourage continued ambulation. - CT brain ordered and reviewed: no acute disease Moderate malnutrition. Hopefully by mouth intake will improve over the next several days. Hypokalemia, resolved - Electrolytes WNL. DVT Prevention - Sequential compression devices - Active bleeding, anticoagulation contraindicated at this time, GI ff. Discharge Planning Home when clinically improved. Patient needs to be set up with primary care physician. He lives in [place]. Problem Qualifiers (1) Sepsis: Qualified Code: A41.9 - Sepsis, due to unspecified organism (2) Abdominal pain: Qualified Code: R10.30 - Lower abdominal pain (3) Leucocytosis: Qualified Code: D72.829 - Leukocytosis, unspecified type Shruti Peck MD Oct 29, 2016 11:21
[2016-10-29 12:00] VITALS: BP 141/70; PULSE 92; RESP 18; TEMP 97.9; O2SAT 95
[2016-10-29] MEDS: METOCLOPRAMIDE HCL 10 MG/2 ML VIAL IV PUSH SCH ×2 (12:04→21:58)
[2016-10-29] MEDS: BISACODYL 10 MG SUPP RECTAL SCH (12:05)
[2016-10-29] MEDS: DOCUSATE SODIUM 50 MG/SENNA 8.6 MG TAB PO SCH ×2 (12:05→21:00)
[2016-10-29] MEDS: metroNIDAZOLE 500 MG INJ 100 ML IV SCH ×2 (12:06→21:54)
[2016-10-29] MEDS: MAGNESIUM HYDROXIDE SUSP 30 ML CUP PO SCH ×2 (12:06→21:55)
[2016-10-29 16:00] VITALS: BP 140/83; PULSE 102; RESP 18; TEMP 99.6; O2SAT 94
[2016-10-29] MEDS: CIPROFLOXACIN 200 MG PREMIX 100 ML IV SCH (16:38)
[2016-10-29 20:00] VITALS: BP 171/95; PULSE 100; RESP 20; TEMP 99.7; O2SAT 91
[2016-10-29] MEDS: LACTOBACILLUS ACIDOPHILUS TAB PO SCH (21:56)
[2016-10-30] VITALS (7 sets, daily range): BP systolic 137–158; BP diastolic 84–104; PULSE 88–110; RESP 16–20; TEMP 97.8–98.8; O2SAT 92–100
[2016-10-30] MEDS: ONDANSETRON HCL 4 MG/2 ML VIAL IVP PRN ×3 (04:19→16:11)
[2016-10-30] MEDS: metroNIDAZOLE 500 MG INJ 100 ML IV SCH ×3 (04:20→21:49)
[2016-10-30] MEDS: METOCLOPRAMIDE HCL 10 MG/2 ML VIAL IV PUSH SCH ×3 (04:22→21:43)
[2016-10-30] MEDS: CIPROFLOXACIN 200 MG PREMIX 100 ML IV SCH ×2 (04:39→13:32)
[2016-10-30] MEDS: SODIUM CHLOR 0.9% 1000 ML INJ 1,000 ML IV SCH ×3 (04:41→21:42)
[2016-10-30 07:23] LABS: AUTOMATED NEUTROPHIL # 12.3 TH/MM3 (1.8-7.7); BASOPHIL % 0.1 % (0.0-2.0); EOSINOPHIL # 0.1 TH/MM3 (0-0.4); EOSINOPHIL % 0.7 % (0.0-4.0); HEMATOCRIT 40.3 % (39.0-51.0); HEMO FLAGS DIFF FINAL; LYMPH % 5.6 % (9.0-44.0); LYMPHOCYTE # 0.8 TH/MM3 (1.0-4.8); MEAN CELL VOLUME 85.8 FL (80.0-100.0); MEAN CORPUSCULAR HEMOGLOBIN 28.2 PG (27.0-34.0); MEAN CORPUSCULAR HGB CONC 32.9 % (32.0-36.0); MONO % 3.3 % (0.0-8.0); NEUT % 90.3 % (16.0-70.0); PLATELET COUNT 568 TH/MM3 (150-450); RED BLOOD COUNT 4.69 MIL/MM3 (4.50-5.90); RED CELL DISTRIBUTION WIDTH 13.7 % (11.6-17.2); WHITE BLOOD COUNT 13.6 TH/MM3 (4.0-11.0)
[2016-10-30 07:42] LABS: BICARBONATE 26.8 MEQ/L (21.0-32.0)
[2016-10-30 07:50] LABS: POTASSIUM 2.6 MEQ/L (3.5-5.1)
[2016-10-30] MEDS: DOCUSATE SODIUM 50 MG/SENNA 8.6 MG TAB PO SCH ×2 (09:00→21:00)
[2016-10-30] MEDS: LACTOBACILLUS ACIDOPHILUS TAB PO SCH ×2 (09:00→21:48)
[2016-10-30] MEDS: BISACODYL 10 MG SUPP RECTAL SCH (09:00)
[2016-10-30] MEDS: MAGNESIUM HYDROXIDE SUSP 30 ML CUP PO SCH ×2 (09:00→21:00)
[2016-10-30] MEDS ORDERED: cloNIDine HCL 0.1 MG TAB PO PRN (10:15)
[2016-10-30] MEDS: ENALAPRILAT 1.25 MG/ML VIAL IV PUSH PRN (10:41)
[2016-10-30] MEDS: POTASSIUM CHLOR 20 MEQ PREMIX 100 ML IV SCH ×3 (11:43→16:10)
--- NOTE | 2016-10-30 12:10 | HHI.PR ---
Subjective Remarks Patient has had multiple bowel movements and abdomen feels much better with no pain. However he continues to have small episodes of emesis. He attributes that to his stomach stretching from not eating much food. Also complains of poor appetite. The patient states that he misses smoking marijuana which she refers to as "God's medicine." Objective Vitals Vital Signs Date Time Temp Pulse Resp B/P Pulse Ox O2 Delivery O2 Flow Rate FiO2 10/30/16 08:00 97.8 110 18 157/104 93 10/30/16 04:01 91 10/30/16 04:00 98.4 104 20 158/92 93 10/30/16 00:00 98.8 100 18 153/100 100 10/29/16 20:00 99.7 100 20 171/95 91 10/29/16 16:00 99.6 102 18 140/83 94 I/O 10/29/16 10/29/16 10/29/16 10/30/16 10/30/16 10/30/16 07:00 15:00 23:00 07:00 15:00 23:00 Intake Total 240 ml 850 ml 600 ml 200 ml Balance 240 ml 850 ml 600 ml 200 ml Intake Oral 240 ml 850 ml 600 ml 200 ml # Voids 1 4 2 1 # Bowel Movements 0 4 1 0 Result Diagram: 10/30/16 0553 10/30/16 0553 Objective Remarks GENERAL: Well-nourished, well-developed pleasant male patient. Long chavira. Lean. SKIN: Warm and dry. HEAD: Normocephalic. EYES: No scleral icterus. No injection or drainage. NECK: Supple, trachea midline. No JVD or lymphadenopathy. CARDIOVASCULAR: Regular rate and rhythm without murmurs, gallops, or rubs. RESPIRATORY: Breath sounds equal and clear to auscultation bilaterally. No accessory muscle use. GASTROINTESTINAL: Abdomen soft, nontender throughout without guarding, nondistended. EXTREMITIES: No cyanosis, or edema. NEUROLOGICAL: Awake, alert, and oriented x 3. Non-focal. A/P Problem List: (1) Sepsis ICD Code: A41.9 Status: Acute (2) Diverticulitis ICD Code: K57.92 Status: Acute (3) Melena ICD Code: K92.1 Status: Resolved (4) Abdominal pain ICD Code: R10.9 Status: Acute (5) Hypokalemia ICD Code: E87.6 Status: Acute (6) Leucocytosis ICD Code: D72.829 Status: Acute (7) Constipation ICD Code: K59.00 Status: Acute (8) Vomiting ICD Code: R11.10 Status: Acute Assessment and Plan Diverticulitis- Abdominal/Pelvis CT showed significant diverticulitis in the pelvis, involving the long segment of the colon with no presence of abscess. - leukocytosis present - recheck in morning. - Continue IVF. Normal saline 83 mL/h - Continue antibiotics include Cipro and Flagyl -continue IV route as he continues to have emesis External hemorrhoids -H&H stable. - Heme and occult stool negative Constipation - improved has had 5 bowel movements. -Milk of magnesia twice a day -To collect suppository later today -KUB October 28 showed stool throughout colon -Diet as tolerated - Control pain, PRN morphine Muscle weakness - subjective. Patient ambulating well and independently. Encourage continued ambulation. - CT brain ordered and reviewed: no acute disease Persistent vomiting. Unclear etiology. We'll reconsult GI. Daily marijuana use. Moderate malnutrition. Hopefully by mouth intake will improve over the next several days. Will start Marinol for appetite enhancement and the nausea. Hypokalemia, 2.6 today - will give replacement and IV, check magnesium level. - Electrolytes WNL. DVT Prevention - Sequential compression devices Discharge Planning Home when clinically improved. Patient needs to be set up with primary care physician/adult protective caseworker informs me that he is being set up with Dr. Garcia. Also being set up with home health care. Problem Qualifiers (1) Sepsis: Qualified Code: A41.9 - Sepsis, due to unspecified organism (2) Abdominal pain: Qualified Code: R10.30 - Lower abdominal pain (3) Leucocytosis: Qualified Code: D72.829 - Leukocytosis, unspecified type Shruti Peck MD Oct 30, 2016 12:10
--- NOTE | 2016-10-30 12:11 | HHI.PR ---
Objective Vitals Vital Signs Date Time Temp Pulse Resp B/P Pulse Ox O2 Delivery O2 Flow Rate FiO2 10/30/16 08:00 97.8 110 18 157/104 93 10/30/16 04:01 91 10/30/16 04:00 98.4 104 20 158/92 93 10/30/16 00:00 98.8 100 18 153/100 100 10/29/16 20:00 99.7 100 20 171/95 91 10/29/16 16:00 99.6 102 18 140/83 94 I/O 10/29/16 10/29/16 10/29/16 10/30/16 10/30/16 10/30/16 07:00 15:00 23:00 07:00 15:00 23:00 Intake Total 240 ml 850 ml 600 ml 200 ml Balance 240 ml 850 ml 600 ml 200 ml Intake Oral 240 ml 850 ml 600 ml 200 ml # Voids 1 4 2 1 # Bowel Movements 0 4 1 0 Result Diagram: 10/30/16 0553 10/30/16 0553 Objective Remarks GENERAL: Well-nourished, well-developed pleasant male patient. Long chavira. Lean. SKIN: Warm and dry. HEAD: Normocephalic. EYES: No scleral icterus. No injection or drainage. NECK: Supple, trachea midline. No JVD or lymphadenopathy. CARDIOVASCULAR: Regular rate and rhythm without murmurs, gallops, or rubs. RESPIRATORY: Breath sounds equal and clear to auscultation bilaterally. No accessory muscle use. GASTROINTESTINAL: Abdomen soft, mildly tender throughout without guarding, nondistended. EXTREMITIES: No cyanosis, or edema. NEUROLOGICAL: Awake, alert, and oriented x 3. Non-focal. A/P Problem List: (1) Sepsis ICD Code: A41.9 Status: Acute (2) Diverticulitis ICD Code: K57.92 Status: Acute (3) Melena ICD Code: K92.1 Status: Resolved (4) Abdominal pain ICD Code: R10.9 Status: Acute (5) Hypokalemia ICD Code: E87.6 Status: Acute (6) Leucocytosis ICD Code: D72.829 Status: Acute (7) Constipation ICD Code: K59.00 Status: Acute (8) Vomiting ICD Code: R11.10 Status: Acute Assessment and Plan Sepsis - leukocytosis present, WBC 12.1 - recheck in morning. - Continue IVF. Normal saline 83 mL/h - Continue antibiotics include Cipro and Flagyl - change to IV route as he is vomiting this morning. - Urinalysis is clear. Diverticulitis, GI bleed, Constipation, External hemorrhoids - Abdominal/Pelvis CT showing significant diverticulitis in the pelvis, involving the long segment of the colon with no presence of abscess. - Continue Flagyl and Cipro - GI following, appreciate input - Heme and occult stool negative - Monitor H&H, currently 12.7 -Milk of magnesia twice a day -To collect suppository later today -KUB yesterday showed stool throughout colon -Diet as tolerated - Control pain, PRN morphine Muscle weakness - subjective. Patient ambulating well and independently. Encourage continued ambulation. - CT brain ordered and reviewed: no acute disease Moderate malnutrition. Hopefully by mouth intake will improve over the next several days. Hypokalemia, resolved - Electrolytes WNL. DVT Prevention - Sequential compression devices - Active bleeding, anticoagulation contraindicated at this time, GI ff. Discharge Planning Home when clinically improved. Patient needs to be set up with primary care physician. He lives in [place]. Problem Qualifiers (1) Sepsis: Qualified Code: A41.9 - Sepsis, due to unspecified organism (2) Abdominal pain: Qualified Code: R10.30 - Lower abdominal pain (3) Leucocytosis: Qualified Code: D72.829 - Leukocytosis, unspecified type Shruti Peck MD Oct 30, 2016 12:11
[2016-10-30] MEDS ORDERED: NON-FORMULARY DRUG (Fish Oil-Cholecalciferol (Fish Oil + D3) 1 CAP) PO SCH (13:15)
[2016-10-30] MEDS ORDERED: FISH OIL 1000 MG PO SCH (13:30)
[2016-10-30] MEDS: FOLIC ACID 1 MG TAB PO SCH (13:32)
[2016-10-30] MEDS: DRONABINOL 5 MG CAP PO SCH (16:11)
--- NOTE | 2016-10-30 18:42 | HHI.GIFU ---
GI Follow-up Note Consult Follow-up Subjective: Patient laying in bed comfortably, had multiple bowel movements , still nausea, decreased appetite, vomiting . Poor historian.Never had egd/ colonoscopy Objective: PHYSICAL EXAMINATION: Vitals signs stable No fever Vital Signs Date Time Temp Pulse Resp B/P Pulse Ox O2 Delivery O2 Flow Rate FiO2 10/30/16 16:00 97.8 99 18 148/91 93 10/30/16 12:00 98.1 88 18 147/84 92 HEENT: Pupils round and reactive to light; normocephalic; atraumatic; no jaundice. Throat is clear. NECK: Neck is supple, no JVD, no lymphadenopathy. CHEST: Chest is clear to auscultation and percussion. CARDIAC: Regular rate and rhythm with no murmur gallop or rubs. ABDOMEN: Soft, nondistended, nontender; no hepatosplenomegaly; bowel sounds are present in all four quadrants. EXTREMITIES: No clubbing, cyanosis, or edema. SKIN: Normal; no rash; no jaundice. VETERINARY SURGERY TECHNOLOGIST: No focal deficits; alert and oriented times three. Available Data (labs, X- Rays, Procedues) : Laboratory Tests Test 10/30/16 10/30/16 05:53 14:25 White Blood Count 13.6 TH/MM3 Red Blood Count 4.69 MIL/MM3 Hemoglobin 13.3 GM/DL Hematocrit 40.3 % Mean Corpuscular Volume 85.8 FL Mean Corpuscular Hemoglobin 28.2 PG Mean Corpuscular Hemoglobin 32.9 % Concent Red Cell Distribution Width 13.7 % Platelet Count 568 TH/MM3 Mean Platelet Volume 8.7 FL Neutrophils (%) (Auto) 90.3 % Lymphocytes (%) (Auto) 5.6 % Monocytes (%) (Auto) 3.3 % Eosinophils (%) (Auto) 0.7 % Basophils (%) (Auto) 0.1 % Neutrophils # (Auto) 12.3 TH/MM3 Lymphocytes # (Auto) 0.8 TH/MM3 Monocytes # (Auto) 0.4 TH/MM3 Eosinophils # (Auto) 0.1 TH/MM3 Basophils # (Auto) 0.0 TH/MM3 CBC Comment DIFF FINAL Differential Comment Sodium Level 142 MEQ/L Potassium Level 2.6 MEQ/L Chloride Level 103 MEQ/L Carbon Dioxide Level 26.8 MEQ/L Anion Gap 12 MEQ/L Blood Urea Nitrogen 4 MG/DL Creatinine 0.44 MG/DL Estimat Glomerular Filtration 189 ML/MIN Rate Random Glucose 120 MG/DL Calcium Level 7.9 MG/DL Magnesium Level 2.5 MG/DL ASSESSMENT/PLAN: diverticulitis-clinically better constipation -better nausea, vomiting, decreased appetite possible withdrawal from cannabis Recommendations advance diet slowly if not better repeat ct abdomen/pelvis in am, consider egd/flexisigmoidoscopy will need colonoscopy in 6- 8 weeks It was a pleasure seeing Nate Moreno. Thank you for this consult. Entered by: Rebecca Nieto MD Oct 30, 2016 18:42
[2016-10-31] VITALS (8 sets, daily range): BP systolic 130–154; BP diastolic 81–93; PULSE 81–98; RESP 16–18; TEMP 96.9–98.5; O2SAT 92–96
[2016-10-31] MEDS: ONDANSETRON HCL 4 MG/2 ML VIAL IVP PRN ×2 (00:26→16:12)
[2016-10-31] MEDS: CIPROFLOXACIN 200 MG PREMIX 100 ML IV SCH ×2 (00:28→13:02)
[2016-10-31] MEDS: metroNIDAZOLE 500 MG INJ 100 ML IV SCH ×3 (04:14→20:31)
[2016-10-31] MEDS: METOCLOPRAMIDE HCL 10 MG/2 ML VIAL IV PUSH SCH ×3 (04:14→20:24)
[2016-10-31 07:34] LABS: BICARBONATE 29.5 MEQ/L (21.0-32.0); MAGNESIUM 2.2 MG/DL (1.5-2.5)
[2016-10-31 07:51] LABS: POTASSIUM 2.7 MEQ/L (3.5-5.1)
[2016-10-31] MEDS ORDERED: POTASSIUM CHLORIDE 20 MEQ CONTROLLED RELEASE TAB PO ONE (09:00)
[2016-10-31] MEDS ORDERED: POTASSIUM CHLORIDE 25 MEQ EFFERVESCENT TAB PO ONE (09:00)
[2016-10-31] MEDS: DOCUSATE SODIUM 50 MG/SENNA 8.6 MG TAB PO SCH ×2 (09:00→20:27)
[2016-10-31] MEDS: BISACODYL 10 MG SUPP RECTAL SCH (09:00)
[2016-10-31] MEDS: MAGNESIUM HYDROXIDE SUSP 30 ML CUP PO SCH ×2 (09:00→20:27)
[2016-10-31] MEDS: FOLIC ACID 1 MG TAB PO SCH (09:02)
[2016-10-31] MEDS: LACTOBACILLUS ACIDOPHILUS TAB PO SCH ×2 (09:02→20:26)
[2016-10-31] MEDS: POTASSIUM CHLOR 20 MEQ PREMIX 100 ML IV SCH ×3 (09:07→13:02)
[2016-10-31] MEDS: DRONABINOL 5 MG CAP PO SCH ×2 (11:23→16:12)
[2016-10-31] MEDS: SODIUM CHLOR 0.9% 1000 ML INJ 1,000 ML IV SCH (13:03)
--- NOTE | 2016-10-31 15:55 | HHI.FF ---
Face to Face Verification Diagnosis: (1) Hypokalemia (2) Diverticulitis (3) Vomiting (4) Constipation Home Health Nursing Order: Medical education Nursing assessment with vital signs I have seen patient Nate Moreno on 10/31/16. My clinical findings support the need for the requested home health care services because: Med compliance is questionable Need for psychosocial assistance I certify that my clinical findings support that this patient is homebound because: Need for psychosocial assistance Shruti Peck MD Oct 31, 2016 15:55
--- NOTE | 2016-10-31 16:43 | HHI.PR ---
Subjective Remarks Patient has severe nausea and has only been able to take some potassium by mouth. No by mouth intake. However he has not had any vomiting. Objective Vitals Vital Signs Date Time Temp Pulse Resp B/P Pulse Ox O2 Delivery O2 Flow Rate FiO2 10/31/16 12:00 98.5 89 18 144/90 94 10/31/16 08:00 98.0 81 18 136/81 93 10/31/16 04:00 96.9 89 16 130/83 93 10/31/16 00:00 98.2 98 18 153/93 92 10/30/16 20:00 89 10/30/16 20:00 98.4 90 16 137/88 93 I/O 10/30/16 10/30/16 10/30/16 10/31/16 10/31/16 10/31/16 07:00 15:00 23:00 07:00 15:00 23:00 Intake Total 200 ml 1874 ml 725 ml Balance 200 ml 1874 ml 725 ml Intake Oral 200 ml 720 ml IV Total 1154 ml 725 ml # Voids 1 4 # Bowel Movements 0 0 Result Diagram: 10/30/16 0553 10/31/16 0547 Objective Remarks GENERAL: Well-nourished, well-developed pleasant male patient. Long chavira. Lean. SKIN: Warm and dry. HEAD: Normocephalic. EYES: No scleral icterus. No injection or drainage. NECK: Supple, trachea midline. No JVD or lymphadenopathy. CARDIOVASCULAR: Regular rate and rhythm without murmurs, gallops, or rubs. RESPIRATORY: Breath sounds equal and clear to auscultation bilaterally. No accessory muscle use. GASTROINTESTINAL: Abdomen soft, nontender throughout without guarding, nondistended. EXTREMITIES: No cyanosis, or edema. NEUROLOGICAL: Awake, alert, and oriented x 3. Non-focal. A/P Problem List: (1) Sepsis ICD Code: A41.9 Status: Acute (2) Diverticulitis ICD Code: K57.92 Status: Acute (3) Melena ICD Code: K92.1 Status: Resolved (4) Abdominal pain ICD Code: R10.9 Status: Acute (5) Hypokalemia ICD Code: E87.6 Status: Acute (6) Leucocytosis ICD Code: D72.829 Status: Acute (7) Constipation ICD Code: K59.00 Status: Acute (8) Vomiting ICD Code: R11.10 Status: Acute Assessment and Plan Diverticulitis- Abdominal/Pelvis CT showed significant diverticulitis in the pelvis, involving the long segment of the colon with no presence of abscess. - leukocytosis present - recheck in morning. - Continue IVF. Normal saline 83 mL/h - Continue antibiotics include Cipro and Flagyl -continue IV route as he continues to have emesis and nausea -Persistent vomiting. This may be related to marijuana withdrawal. Started on Marinol. GI reconsult. Abdomen is benign. We'll repeat abdominal CT scan if he vomits again. Continue scheduled Reglan. Zofran when necessary and Marinol. External hemorrhoids -H&H stable. - Heme and occult stool negative Constipation - improved has had 5 bowel movements. -Milk of magnesia twice a day -KUB October 28 showed stool throughout colon -Diet as tolerated - Control pain, PRN morphine Muscle weakness - subjective. Patient ambulating well and independently. Encourage continued ambulation. - CT brain ordered and reviewed: no acute disease Daily marijuana use. Moderate malnutrition. Hopefully by mouth intake will improve over the next several days. Will start Marinol for appetite enhancement and the nausea. Hypokalemia, severe- will give replacement and IV, magnesium level okay. - Electrolytes WNL. DVT Prevention - Sequential compression devices Discharge Planning Home when clinically improved. Problem Qualifiers (1) Sepsis: Qualified Code: A41.9 - Sepsis, due to unspecified organism (2) Abdominal pain: Qualified Code: R10.30 - Lower abdominal pain (3) Leucocytosis: Qualified Code: D72.829 - Leukocytosis, unspecified type Shruti Peck MD Oct 31, 2016 16:43
[2016-11-01] VITALS: BP 149/93; PULSE 84; RESP 16; TEMP 97.7; O2SAT 94
[2016-11-01] MEDS: ONDANSETRON HCL 4 MG/2 ML VIAL IVP PRN ×2 (00:14→08:07)
[2016-11-01] MEDS: ENALAPRILAT 1.25 MG/ML VIAL IV PUSH PRN (00:15)
[2016-11-01] MEDS: CIPROFLOXACIN 200 MG PREMIX 100 ML IV SCH ×2 (00:16→12:33)
[2016-11-01] MEDS: METOCLOPRAMIDE HCL 10 MG/2 ML VIAL IV PUSH SCH ×3 (03:26→20:31)
[2016-11-01] MEDS: SODIUM CHLOR 0.9% 1000 ML INJ 1,000 ML IV SCH ×3 (03:28→20:27)
[2016-11-01] MEDS: metroNIDAZOLE 500 MG INJ 100 ML IV SCH ×3 (03:28→20:28)
[2016-11-01 04:00] VITALS: BP 119/77; PULSE 88; RESP 18; TEMP 98.8; O2SAT 93
--- NOTE | 2016-11-01 07:44 | HHI.GIFU ---
GI Follow-up Note Consult Follow-up Subjective: Patient laying in bed comfortably,still nauseated ,difficulty urinating .Had few bowel movements .states he has no latex allergy Objective: PHYSICAL EXAMINATION: Vitals signs stable No fever Vital Signs Date Time Temp Pulse Resp B/P Pulse Ox O2 Delivery O2 Flow Rate FiO2 11/01/16 04:00 98.8 88 18 119/77 93 11/01/16 00:00 97.7 84 16 149/93 94 HEENT: Pupils round and reactive to light; normocephalic; atraumatic; no jaundice. Throat is clear. NECK: Neck is supple, no JVD, no lymphadenopathy. CHEST: Chest is clear to auscultation and percussion. CARDIAC: Regular rate and rhythm with no murmur gallop or rubs. ABDOMEN: Soft, distended, nontender; no hepatosplenomegaly; bowel sounds are present in all four quadrants. EXTREMITIES: No clubbing, cyanosis, or edema. SKIN: Normal; no rash; no jaundice. WAREHOUSE TEAM LEADER: No focal deficits; alert and oriented times three. Available Data (labs, X- Rays, Procedues) : Laboratory Tests Test 10/30/16 10/31/16 10/31/16 14:25 05:47 17:10 Magnesium Level 2.5 MG/DL 2.2 MG/DL Sodium Level 142 MEQ/L Potassium Level 2.7 MEQ/L 3.5 MEQ/L Chloride Level 105 MEQ/L Carbon Dioxide Level 29.5 MEQ/L Anion Gap 8 MEQ/L Blood Urea Nitrogen 4 MG/DL Creatinine 0.45 MG/DL Estimat Glomerular Filtration 184 ML/MIN Rate Random Glucose 124 MG/DL Calcium Level 7.7 MG/DL ASSESSMENT/PLAN: diverticulitis -clinically better constipation -improved nausea-possible withdrawal from marijuana Recommendations full liquid diet repeat ct to r/o abscess egd plus minus flexisigmoidoscopy in am depending on ct report urinary retention-as per primary It was a pleasure seeing Nate Moreno. Thank you for this consult. Entered by: Rebecca Nieto MD Nov 01, 2016 07:44
[2016-11-01 08:00] VITALS: BP 138/74; PULSE 86; PULSE 90; RESP 18; TEMP 98.1; O2SAT 94
[2016-11-01] MEDS: MAGNESIUM HYDROXIDE SUSP 30 ML CUP PO SCH ×2 (08:04→20:31)
[2016-11-01] MEDS: BISACODYL 10 MG SUPP RECTAL SCH (08:04)
[2016-11-01] MEDS: FOLIC ACID 1 MG TAB PO SCH (08:04)
[2016-11-01] MEDS: LACTOBACILLUS ACIDOPHILUS TAB PO SCH ×2 (08:04→20:31)
[2016-11-01] MEDS: DOCUSATE SODIUM 50 MG/SENNA 8.6 MG TAB PO SCH ×2 (08:05→20:31)
[2016-11-01] MEDS ORDERED: DIATRIZOATE MEGLUM/DIATRIZOATE SOD 9 ML CUP PO ONE (08:45)
[2016-11-01] MEDS: TAMSULOSIN HCL 0.4 MG CAP PO SCH (09:00)
[2016-11-01 09:56] LABS: AUTOMATED NEUTROPHIL # 8.6 TH/MM3 (1.8-7.7); BASOPHIL # 0.1 TH/MM3 (0-0.2); BASOPHIL % 0.6 % (0.0-2.0); EOSINOPHIL % 0.1 % (0.0-4.0); HEMATOCRIT 43.1 % (39.0-51.0); LYMPH % 12.2 % (9.0-44.0); LYMPHOCYTE # 1.3 TH/MM3 (1.0-4.8); MEAN CELL VOLUME 85.4 FL (80.0-100.0); MEAN CORPUSCULAR HEMOGLOBIN 27.5 PG (27.0-34.0); MEAN CORPUSCULAR HGB CONC 32.2 % (32.0-36.0); MONO % 5.7 % (0.0-8.0); NEUT % 81.4 % (16.0-70.0); PLATELET COUNT 591 TH/MM3 (150-450); RED BLOOD COUNT 5.05 MIL/MM3 (4.50-5.90); RED CELL DISTRIBUTION WIDTH 13.2 % (11.6-17.2); WHITE BLOOD COUNT 10.6 TH/MM3 (4.0-11.0)
[2016-11-01 10:06] LABS: POTASSIUM 3.1 MEQ/L (3.5-5.1)
[2016-11-01 10:10] LABS: HEMO FLAGS DIFF FINAL
[2016-11-01 10:11] LABS: BICARBONATE 28.7 MEQ/L (21.0-32.0)
[2016-11-01 12:00] VITALS: BP 142/85; PULSE 101; RESP 18; TEMP 98.1; O2SAT 96
[2016-11-01] MEDS: DRONABINOL 5 MG CAP PO SCH ×2 (12:24→16:20)
[2016-11-01] MEDS ORDERED: IOHEXOL 350 MG/ML 10 ML VIAL (for RAD DIAG) IV ONE (13:40)
--- NOTE | 2016-11-01 15:21 | HHI.PR ---
Subjective Remarks The patient had dry heaves this morning but no vomiting. He requests that latex allergy be removed so that he can eat carrots bananas and fruit. However he states that he about a year ago he did wear latex gloves and got severe rash and swelling on his hands. He does not have any further abdominal pain. Objective Vitals Vital Signs Date Time Temp Pulse Resp B/P Pulse Ox O2 Delivery O2 Flow Rate FiO2 11/01/16 12:00 98.1 101 18 142/85 96 11/01/16 08:00 98.1 86 18 138/74 94 11/01/16 04:00 98.8 88 18 119/77 93 11/01/16 00:00 97.7 84 16 149/93 94 10/31/16 20:04 83 10/31/16 20:00 98.1 87 18 154/90 96 10/31/16 16:00 97.6 90 18 137/85 95 I/O 10/31/16 10/31/16 10/31/16 11/01/16 11/01/16 11/01/16 07:00 15:00 23:00 07:00 15:00 23:00 Intake Total 725 ml 1136 ml 684 ml Output Total 0 ml Balance 725 ml 1136 ml 684 ml Intake Oral 600 ml IV Total 725 ml 536 ml 684 ml Stool Total 0 ml # Voids 5 Result Diagram: 11/01/1631 11/01/1631 Objective Remarks GENERAL: Well-nourished, well-developed pleasant male patient. Long chavira. Lean. SKIN: Warm and dry. HEAD: Normocephalic. EYES: No scleral icterus. No injection or drainage. NECK: Supple, trachea midline. No JVD or lymphadenopathy. CARDIOVASCULAR: Regular rate and rhythm without murmurs, gallops, or rubs. RESPIRATORY: Breath sounds equal and clear to auscultation bilaterally. No accessory muscle use. GASTROINTESTINAL: Abdomen soft, nontender throughout without guarding, nondistended. EXTREMITIES: No cyanosis, or edema. NEUROLOGICAL: Awake, alert, and oriented x 3. Non-focal. A/P Problem List: (1) Sepsis ICD Code: A41.9 Status: Acute (2) Diverticulitis ICD Code: K57.92 Status: Acute (3) Melena ICD Code: K92.1 Status: Resolved (4) Abdominal pain ICD Code: R10.9 Status: Acute (5) Hypokalemia ICD Code: E87.6 Status: Acute (6) Leucocytosis ICD Code: D72.829 Status: Acute (7) Constipation ICD Code: K59.00 Status: Acute (8) Vomiting ICD Code: R11.10 Status: Acute Assessment and Plan Diverticulitis- Abdominal/Pelvis CT showed significant diverticulitis in the pelvis, involving the long segment of the colon with no presence of abscess. - leukocytosis resolved. No further abdominal pain. - Continue IVF. Normal saline 83 mL/h - Continue antibiotics include Cipro and Flagyl -continue IV route as he continues to have emesis and nausea -Persistent vomiting. This may be related to marijuana withdrawal. Started on Marinol and Reglan scheduled. Repeat abdominal CT scan today. GI planning for EGD and sigmoidoscopy tomorrow however patient not sure he agrees to it. Continue Zofran when necessary. Full liquid diet as tolerated. External hemorrhoids -H&H stable. - Heme and occult stool negative Constipation -resolved continue bowel regimen. Muscle weakness - subjective. Patient ambulating well and independently. Encourage continued ambulation. - CT brain ordered and reviewed: no acute disease Daily marijuana use. Moderate malnutrition. Continue encourage by mouth. Hypokalemia-give K-Lyte 50 mEq today. Repeat potassium in the morning. - Electrolytes WNL. DVT Prevention - Sequential compression devices Discharge Planning Home when clinically improved. Problem Qualifiers (1) Sepsis: Qualified Code: A41.9 - Sepsis, due to unspecified organism (2) Abdominal pain: Qualified Code: R10.30 - Lower abdominal pain (3) Leucocytosis: Qualified Code: D72.829 - Leukocytosis, unspecified type Shruti Peck MD Nov 01, 2016 15:21
--- NOTE | 2016-11-01 15:22 | RADHPO ---
EXAM DATE/TIME: 11/01/2016 13:27 [facility] COMPARISON: CT BRAIN W/O CONTRAST, October 28, 2016, 8:56. INDICATIONS : Evaluate diverticulitis. IV CONTRAST: 95 cc Omnipaque 350 (iohexol) IV ORAL CONTRAST: Prescribed oral contrast ingested. RADIATION DOSE: 6.62 CTDIvol (mGy) MEDICAL HISTORY : Congestive heart failure. SURGICAL HISTORY : Hernia repair. ENCOUNTER: Subsequent ACUITY: 1 week PAIN SCALE: 4/10 LOCATION: Left abdomen/pelvis TECHNIQUE: Volumetric scanning of the abdomen and pelvis was performed. Using automated exposure control and ad justment of the mA and/or kV according to patient size, radiation dose was kept as low as reasonably achievable to obtain optimal diagnostic quality images. FINDINGS: The limited portion of lung bases visualized demonstrate COPD change but is otherwise clear. The appearance of the liver, spleen, pancreas, adrenal glands and kidneys is within normal limits. In cidental note is made of a 1.5 cm simple cyst in the right kidney. 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 There is no retroperitoneal lym phadenopathy. Visualized loops of small large bowel demonstrates gaseous distention of the colon. There is an area of thickened colon within the sigmoid. There is only mild inflammatory change around this. While this may represent diverticulitis, primary differential considerations would be a colitis/proctitis versu s malignancy. No free intraperitoneal air is identified. There is a small amount of free fluid within the pelvis. N ote is made of fluid within a left inguinal hernia. The visualized bony structures demonstrate degenerative changes but are otherwise intact. CONCLUSION: 1. There is gaseous and fluid distention of the colon down to the distal sigmoid. The cecum measures 9 cm in transverse dimension. There is an area of abnormal, thickened colon with only minimal inflamm atory change. Primary consideration for this would be a colitis involving the distal sigmoid and rect um versus malignancy. 2. There is a small amount of free fluid within the pelvis. 3. Left inguinal hernia. Curt Jack MD on November 01, 2016 at 15:13 Board Certified Radiologist. This report was verified electronically.
[2016-11-01] MEDS ORDERED: POTASSIUM CHLORIDE 25 MEQ EFFERVESCENT TAB PO ONE (15:30)
[2016-11-01 20:00] VITALS: BP 143/87; PULSE 95; RESP 20; TEMP 98.6; O2SAT 93
[2016-11-01 20:03] VITALS: PULSE 108
[2016-11-02] VITALS (9 sets, daily range): BP systolic 112–154; BP diastolic 70–96; PULSE 93–138; RESP 15–20; TEMP 97.3–98.8; O2SAT 93–97
[2016-11-02] MEDS: CIPROFLOXACIN 200 MG PREMIX 100 ML IV SCH ×2 (01:34→13:01)
[2016-11-02] MEDS: METOCLOPRAMIDE HCL 10 MG/2 ML VIAL IV PUSH SCH ×2 (04:41→11:54)
[2016-11-02] MEDS: metroNIDAZOLE 500 MG INJ 100 ML IV SCH ×3 (04:42→19:28)
[2016-11-02 06:28] LABS: AUTOMATED NEUTROPHIL # 8.5 TH/MM3 (1.8-7.7); BASOPHIL # 0.2 TH/MM3 (0-0.2); BASOPHIL % 2.1 % (0.0-2.0); EOSINOPHIL % 0.2 % (0.0-4.0); HEMATOCRIT 39.5 % (39.0-51.0); HEMO FLAGS DIFF FINAL; LYMPHOCYTE # 1.2 TH/MM3 (1.0-4.8); MEAN CELL VOLUME 84.4 FL (80.0-100.0); MEAN CORPUSCULAR HEMOGLOBIN 28.7 PG (27.0-34.0); MONO % 7.1 % (0.0-8.0); NEUT % 79.6 % (16.0-70.0); PLATELET COUNT 495 TH/MM3 (150-450); RED BLOOD COUNT 4.68 MIL/MM3 (4.50-5.90); RED CELL DISTRIBUTION WIDTH 12.9 % (11.6-17.2); WHITE BLOOD COUNT 10.7 TH/MM3 (4.0-11.0)
[2016-11-02 06:36] LABS: POTASSIUM 3.3 MEQ/L (3.5-5.1)
[2016-11-02 06:41] LABS: BICARBONATE 29.2 MEQ/L (21.0-32.0)
[2016-11-02] MEDS ORDERED: PROPOFOL 200 MG/20 ML AMP IV ONE ×2 (07:16→08:51)
--- NOTE | 2016-11-02 07:45 | GIPROC ---
[facility] [address] [place] [address], [id number] FLEXIBLE SIGMOIDOSCOPY PROCEDURE REPORT EXAM DATE: 11/02/2016 PATIENT NAME: Nate Moreno MR #: [id number] BIRTHDATE: 1940 ORDER #: [id number] ATTENDING: Rebecca Sebastian MD WATER CONSERVATION SPECIALIST: Jermaine Sheikh and Jennifer Amaral STATUS: inpatient INDICATIONS: The patient is a 75 yr old male here for a flexible sigmoidoscopy due to abnormal ct PROCEDURE PERFORMED: Flexible Sigmoidoscopy with biopsy MEDICATIONS: None and Per Anesthesia. ESTIMATED BLOOD LOSS: None CONSENT: The patient understands the risks and benefits of the procedure and understands that these risks include, but are not limited to: sedation, allergic reaction, infection, perforation and/or bleeding. Alternative means of evaluation and treatment include, among others: physical exam, x-rays, and/or surgical intervention. The patient elects to proceed with this endoscopic procedure. medical equipment was checked for proper function. Hand hygiene and appropriate measures for infection prevention was taken. After the risks, benefits and alternatives of the procedure were thoroughly explained, Informed consent was verified, confirmed and timeout was successfully executed by the treatment team. A digital rectal exam revealed external hemorrhoids The [id number] (Pedi C) endoscope was introduced through the anus and advanced to the sigmoid colon. The prep was fair. The instrument was then slowly withdrawn as the colon was fully examined. COLON FINDINGS: Polypoid mass in sigmoid, nearly obstructing -biopsy, scope could not be passed further. Retroflexed views revealed internal thrombosed hemorrhoid The scope was then completely withdrawn from the patient and the procedure terminated. ADVERSE EVENTS: There were no complications. IMPRESSIONS: 1. Polypoid mass in sigmoid, nearly obstructing -biopsy, scope could not be passed further 2. Retroflexed views revealed internal thrombosed hemorrhoid 3. Revealed external hemorrhoids RECOMMENDATIONS: 1. Await biopsy results 2. Gastrografin enema clear liquids colorectal surgery- RECALL: Colonoscopy, pending biopsy results Rebecca Sebastian MD eSigned: Rebecca Sebastian MD 11/02/2016 7:44 AM cc:
[2016-11-02] MEDS ORDERED: PHENYLEPH/NS 1000 MCG/10 ML SYR IV ONE (08:51)
[2016-11-02] MEDS ORDERED: NEOSTIGMINE 3 MG/3 ML SYR IV ONE (08:51)
[2016-11-02] MEDS ORDERED: NORMOSOL R INJ 1,000 ML IV ONE (08:52)
[2016-11-02] MEDS ORDERED: LACTATED RINGER'S 1000 ML INJ 1,000 ML IV ONE (08:52)
[2016-11-02] MEDS ORDERED: ONDANSETRON HCL 4 MG/2 ML VIAL IV PUSH ONE (08:52)
[2016-11-02] MEDS: TAMSULOSIN HCL 0.4 MG CAP PO SCH (09:00)
--- NOTE | 2016-11-02 10:19 | EKG ---
Date Performed: 11/02/2016 Time Performed: 05:51:14 PTAGE: 75 years EKG: Sinus rhythm with PVC(s) Possible inferior infarct - age undetermined Abnormal ECG NO PREVIOUS TRACING DOCTOR: Sunny Chau Interpretating Date/Time 11/02/2016 10:18:50
[2016-11-02] MEDS: DRONABINOL 5 MG CAP PO SCH ×2 (10:41→15:16)
[2016-11-02] MEDS: FOLIC ACID 1 MG TAB PO SCH (10:43)
[2016-11-02] MEDS: LACTOBACILLUS ACIDOPHILUS TAB PO SCH (10:44)
[2016-11-02] MEDS: MAGNESIUM HYDROXIDE SUSP 30 ML CUP PO SCH (10:45)
[2016-11-02] MEDS: SODIUM CHLOR 0.9% 1000 ML INJ 1,000 ML IV SCH ×2 (13:50→19:02)
[2016-11-02] MEDS ORDERED: BUPIVACAINE HCL PF 0.5% 30 ML VIAL ONE (14:15)
--- NOTE | 2016-11-02 14:50 | HHI.PR ---
Subjective Remarks Patient in nad. No n/v/d/c. Denies having any bleeding per rectum. no fever or chills No pain. Awaiting for surgery in the afternoon. Objective Vitals Vital Signs Date Time Temp Pulse Resp B/P Pulse Ox O2 Delivery O2 Flow Rate FiO2 11/02/16 11:00 98.2 98 18 139/96 93 11/02/16 11:00 102 11/02/16 07:49 93 20 146/100 95 11/02/16 07:39 98.6 90 15 113/72 96 11/02/16 06:38 97.3 104 15 139/96 94 11/02/16 04:00 97.3 104 20 139/96 94 11/02/16 01:23 138 11/02/16 00:00 98.6 94 20 147/93 97 11/01/16 20:03 108 11/01/16 20:00 98.6 95 20 143/87 93 I/O 11/01/16 11/01/16 11/01/16 11/02/16 11/02/16 11/02/16 07:00 15:00 23:00 07:00 15:00 23:00 Intake Total 684 ml 450 ml 1308 ml 735 ml 200 ml Output Total 300 ml Balance 684 ml 450 ml 1308 ml 735 ml -100 ml Intake Oral 450 ml 60 ml 60 ml IV Total 684 ml 1248 ml 675 ml Other 200 ml Output Urine Total 300 ml # Voids 5 3 2 # Bowel Movements 1 0 0 Result Diagram: 11/02/16 0540 11/02/16 0540 Imaging Last Impressions Abdomen/Pelvis CT 11/01/16 0000 Signed Impressions: Service Date/Time: Tuesday, November 01, 2016 13:27 - CONCLUSION: 1. There is gaseous and fluid distention of the colon down to the distal sigmoid. The cecum measures 9 cm in transverse dimension. There is an area of abnormal, thickened colon with only minimal inflammatory change. Primary consideration for this would be a colitis involving the distal sigmoid and rectum versus malignancy. 2. There is a small amount of free fluid within the pelvis. 3. Left inguinal hernia. Curt Jack MD Head CT 10/28/16 0000 Signed Impressions: Service Date/Time: Friday, October 28, 2016 08:56 - CONCLUSION: No acute disease. Jered Jack MD FACR Abdomen X-Ray 10/28/16 0000 Signed Impressions: Service Date/Time: Friday, October 28, 2016 08:39 - CONCLUSION: Moderate stool throughout the colon. Jered Jack MD FACR Objective Remarks GENERAL: Well-nourished, well-developed pleasant 75 yo male patient. Lean. SKIN: Warm and dry. HEAD: Normocephalic. EYES: No scleral icterus. No injection or drainage. NECK: Supple, trachea midline. No JVD or lymphadenopathy. CARDIOVASCULAR: Regular rate and rhythm without murmurs, gallops, or rubs. RESPIRATORY: Breath sounds equal and clear to auscultation bilaterally. No accessory muscle use. GASTROINTESTINAL: Abdomen soft, nontender throughout without guarding, nondistended. EXTREMITIES: No cyanosis, or edema. NEUROLOGICAL: Awake, alert, and oriented x 3. Non-focal. A/P Problem List: (1) Sepsis ICD Code: A41.9 Status: Acute (2) Diverticulitis ICD Code: K57.92 Status: Acute (3) Melena ICD Code: K92.1 Status: Resolved (4) Abdominal pain ICD Code: R10.9 Status: Acute (5) Hypokalemia ICD Code: E87.6 Status: Acute (6) Leucocytosis ICD Code: D72.829 Status: Acute (7) Constipation ICD Code: K59.00 Status: Acute (8) Vomiting ICD Code: R11.10 Status: Acute Assessment and Plan Sigmoidal mass. Seen after colonoscopy. Dr Sigala colorectal surgeon consulted, plan for OR today 11/02. NPO Diverticulitis- Abdominal/Pelvis CT showed significant diverticulitis in the pelvis, involving the long segment of the colon with no presence of abscess. - leukocytosis resolved. No further abdominal pain. - Continue IVF. Normal saline 83 mL/h - Continue antibiotics include Cipro and Flagyl -continue IV route as he continues to have emesis and nausea -Persistent vomiting. This may be related to marijuana withdrawal. Started on Marinol and Reglan scheduled. Repeat abdominal CT scan today. GI planning for EGD and sigmoidoscopy tomorrow however patient not sure he agrees to it. Continue Zofran when necessary. Full liquid diet as tolerated. External hemorrhoids -H&H stable. - Heme and occult stool negative Constipation -resolved continue bowel regimen. Muscle weakness - subjective. Patient ambulating well and independently. Encourage continued ambulation. - CT brain ordered and reviewed: no acute disease Daily marijuana use. Moderate malnutrition. Continue encourage by mouth. Hypokalemia-give K-Lyte 50 mEq today. Monitor lytes and replace as need. - Electrolytes WNL. DVT Prevention - Sequential compression devices Discharge Planning Home when clinically improved. Problem Qualifiers (1) Sepsis: Qualified Code: A41.9 - Sepsis, due to unspecified organism (2) Abdominal pain: Qualified Code: R10.30 - Lower abdominal pain (3) Leucocytosis: Qualified Code: D72.829 - Leukocytosis, unspecified type Olesya Pollack MD Nov 02, 2016 14:50
[2016-11-02] MEDS ORDERED: FAMOTIDINE 20 MG/2 ML VIAL ONE (15:57)
[2016-11-02] MEDS ORDERED: ACETAMINOPHEN 1000 MG/100 ML VIAL IV ONE (15:57)
[2016-11-02] MEDS ORDERED: fentaNYL CITRATE 250 MCG/5 ML AMP ONE (15:57)
[2016-11-02] MEDS ORDERED: MIDAZOLAM HCL 2 MG/2 ML VIAL ONE (15:57)
[2016-11-02] MEDS ORDERED: POTASSIUM CHLORIDE 20 MEQ CONTROLLED RELEASE TAB PO ONE (18:15)
[2016-11-02] MEDS ORDERED: DO NOT ADM ANY ANTICOAGULANT DRUGS PRN (18:37)
[2016-11-02] MEDS ORDERED: NALOXONE HCL 0.4 MG/ML AMP IV PRN (18:45)
--- NOTE | 2016-11-02 18:50 | HHI.PR ---
Immediate Post Op Note Procedure Date: Nov 02, 2016 Pre Op Diagnosis: Colonic obstruction Post Op Diagnosis: same Surgeon: Ubaldo Sigala Soil Specialist(s): Juan Procedure: Exploratory lap + LAR/ileostomy, bowel prep Findings: long seg RS obstructed, tics, liver/GB OK Complications: none Specimen(s) removed: rectosigmoid Estimated blood loss: 300cc Anesthesia: General Drains: AHMET IVF Patient to: PACU Patient Condition: Good Ubaldo Sigala MD Nov 02, 2016 18:50
[2016-11-02] MEDS ORDERED: *morphine SULFATE 8 MG/ML PERIprocedure ONLY ONE (19:16)
[2016-11-02] MEDS: MORPHINE SULFATE 30 MG/30 ML PCA IV SCH (19:29)
[2016-11-02] MEDS: PCA - TOTAL MG MORPHINE DELIVERED PER SHIFT SCH (22:00)
[2016-11-03] VITALS (24 sets, daily range): BP systolic 103–133; BP diastolic 57–80; PULSE 92–123; RESP 18–20; TEMP 97.5–98.6; O2SAT 90–96
[2016-11-03] MEDS ORDERED: KETOROLAC TROMETHAMINE 30 MG/ML (IVP) VIAL IV PUSH PRN (01:15)
[2016-11-03] MEDS: CIPROFLOXACIN 200 MG PREMIX 100 ML IV SCH ×2 (02:07→13:10)
[2016-11-03] MEDS: SODIUM CHLOR 0.9% 1000 ML INJ 1,000 ML IV SCH ×3 (02:08→21:54)
[2016-11-03] MEDS: metroNIDAZOLE 500 MG INJ 100 ML IV SCH ×3 (03:54→21:53)
[2016-11-03] MEDS: PCA - TOTAL MG MORPHINE DELIVERED PER SHIFT SCH ×3 (05:48→21:54)
[2016-11-03 06:59] LABS: AUTOMATED NEUTROPHIL # 22.2 TH/MM3 (1.8-7.7); HEMATOCRIT 40.5 % (39.0-51.0); HEMO FLAGS DIFF FINAL; LYMPH % 2.3 % (9.0-44.0); LYMPHOCYTE # 0.6 TH/MM3 (1.0-4.8); MEAN CELL VOLUME 84.1 FL (80.0-100.0); MEAN CORPUSCULAR HEMOGLOBIN 27.7 PG (27.0-34.0); MEAN CORPUSCULAR HGB CONC 32.9 % (32.0-36.0); MONO % 5.4 % (0.0-8.0); NEUT % 92.3 % (16.0-70.0); PLATELET COUNT 470 TH/MM3 (150-450); RED BLOOD COUNT 4.82 MIL/MM3 (4.50-5.90); RED CELL DISTRIBUTION WIDTH 14.2 % (11.6-17.2); WHITE BLOOD COUNT 24.1 TH/MM3 (4.0-11.0)
[2016-11-03 07:19] LABS: BICARBONATE 30.7 MEQ/L (21.0-32.0); POTASSIUM 3.2 MEQ/L (3.5-5.1)
[2016-11-03 07:32] LABS: CALCIUM-PROTEIN CORRECTED 8.4 MG/DL (8.5-10.1)
--- NOTE | 2016-11-03 07:40 | HHI.PR ---
Subjective Remarks In bed. With abdominal pain after surgery, however controlled by medications. No nausea or vomiting, did not eat yet after surgery. We'll advance diet as tolerated. Denies fevers or chills. Objective Vitals Vital Signs Date Time Temp Pulse Resp B/P Pulse Ox O2 Delivery O2 Flow Rate FiO2 11/03/16 06:08 92 11/03/16 05:48 16 11/03/16 05:00 95 11/03/16 04:00 103 11/03/16 03:27 98.0 117 18 113/74 96 11/03/16 03:00 101 11/03/16 02:00 96 11/03/16 01:00 100 11/03/16 00:00 94 11/03/16 00:00 98.0 103 18 112/64 96 11/02/16 23:00 102 11/02/16 22:00 108 11/02/16 22:00 16 11/02/16 21:00 97.7 103 18 112/70 94 11/02/16 21:00 103 11/02/16 20:30 99 12 112/74 98 Nasal Cannula 2 11/02/16 19:30 107 12 127/88 98 Nasal Cannula 4 11/02/16 19:29 16 11/02/16 19:15 114 12 101/66 98 Nasal Cannula 4 11/02/16 19:00 114 12 139/96 98 Nasal Cannula 4 11/02/16 18:45 119 12 160/100 96 Nasal Cannula 4 11/02/16 18:38 97.3 122 12 151/78 95 Nasal Cannula 4 11/02/16 15:30 98.8 93 18 154/93 94 11/02/16 11:00 98.2 98 18 139/96 93 11/02/16 11:00 102 11/02/16 07:49 93 20 146/100 95 I/O 11/02/16 11/02/16 11/02/16 11/03/16 11/03/16 11/03/16 07:00 15:00 23:00 07:00 15:00 23:00 Intake Total 735 ml 200 ml 2336 ml 1225 ml Output Total 300 ml 1335 ml 505 ml Balance 735 ml -100 ml 1001 ml 720 ml Intake Oral 60 ml 0 ml IV Total 675 ml 1036 ml 1225 ml Other 200 ml 1300 ml Output Urine Total 300 ml 575 ml 425 ml Drainage Total 160 ml 80 ml Estimated Blood Loss 300 ml Other 300 ml # Voids 2 # Bowel Movements 0 Result Diagram: 11/03/16 0555 11/03/16 0555 Imaging Last Impressions Abdomen/Pelvis CT 11/01/16 0000 Signed Impressions: Service Date/Time: Tuesday, November 01, 2016 13:27 - CONCLUSION: 1. There is gaseous and fluid distention of the colon down to the distal sigmoid. The cecum measures 9 cm in transverse dimension. There is an area of abnormal, thickened colon with only minimal inflammatory change. Primary consideration for this would be a colitis involving the distal sigmoid and rectum versus malignancy. 2. There is a small amount of free fluid within the pelvis. 3. Left inguinal hernia. Curt Jack MD Head CT 10/28/16 0000 Signed Impressions: Service Date/Time: Friday, October 28, 2016 08:56 - CONCLUSION: No acute disease. Jered Jack MD FACR Abdomen X-Ray 10/28/16 0000 Signed Impressions: Service Date/Time: Friday, October 28, 2016 08:39 - CONCLUSION: Moderate stool throughout the colon. Jered Jack MD FACR Objective Remarks GENERAL: Well-nourished, well-developed pleasant 75 yo male patient. Lean. SKIN: Warm and dry. HEAD: Normocephalic. EYES: No scleral icterus. No injection or drainage. NECK: Supple, trachea midline. No JVD or lymphadenopathy. CARDIOVASCULAR: Regular rate and rhythm without murmurs, gallops, or rubs. RESPIRATORY: Breath sounds equal and clear to auscultation bilaterally. No accessory muscle use. GASTROINTESTINAL: Abdomen soft, + BS, drain in place, tenderness at the surgical site, dressings c/d/i, nondistended. EXTREMITIES: No cyanosis, or edema. NEUROLOGICAL: Awake, alert, and oriented x 3. Non-focal. A/P Problem List: (1) Sepsis ICD Code: A41.9 Status: Acute (2) Diverticulitis ICD Code: K57.92 Status: Acute (3) Melena ICD Code: K92.1 Status: Resolved (4) Abdominal pain ICD Code: R10.9 Status: Acute (5) Hypokalemia ICD Code: E87.6 Status: Acute (6) Leucocytosis ICD Code: D72.829 Status: Acute (7) Constipation ICD Code: K59.00 Status: Acute (8) Vomiting ICD Code: R11.10 Status: Acute Assessment and Plan Sigmoidal mass. Dr Sigala colorectal surgeon consulted S/P rectosigmoid removal 11/02/[address] Sigala Pathology pending Diverticulitis- Abdominal/Pelvis CT showed significant diverticulitis in the pelvis, involving the long segment of the colon with no presence of abscess. - leukocytosis resolved. No further abdominal pain. - Continue IVF. Normal saline 83 mL/h - Continue antibiotics include Cipro and Flagyl -continue IV route as he continues to have emesis and nausea -Persistent vomiting. This may be related to marijuana withdrawal. Started on Marinol and Reglan scheduled. Repeat abdominal CT scan today. GI planning for EGD and sigmoidoscopy tomorrow however patient not sure he agrees to it. Continue Zofran when necessary. Full liquid diet as tolerated. External hemorrhoids -H&H stable. - Heme and occult stool negative Constipation -resolved continue bowel regimen. Muscle weakness - subjective. Patient ambulating well and independently. Encourage continued ambulation. - CT brain ordered and reviewed: no acute disease Daily marijuana use. Moderate malnutrition. Continue encourage by mouth. Hypokalemia-give K-Lyte 50 mEq today. Monitor lytes and replace as need. - Electrolytes WNL. DVT Prevention - Sequential compression devices Discharge Planning Home when clinically improved and cleared by consultants. Problem Qualifiers (1) Sepsis: Qualified Code: A41.9 - Sepsis, due to unspecified organism (2) Abdominal pain: Qualified Code: R10.30 - Lower abdominal pain (3) Leucocytosis: Qualified Code: D72.829 - Leukocytosis, unspecified type Olesya Pollack MD Nov 03, 2016 07:40
[2016-11-03] MEDS ORDERED: CIPR500T2 PO (07:48)
[2016-11-03] MEDS ORDERED: FOLI1TAB4 PO (07:48)
[2016-11-03] MEDS ORDERED: COLA100C3 PO (07:48)
[2016-11-03] MEDS ORDERED: METR-1 PO (07:48)
[2016-11-03] MEDS ORDERED: NORC5TAB PO (07:48)
[2016-11-03] MEDS ORDERED: TAMS5CAP PO (07:48)
--- NOTE | 2016-11-03 07:48 | HHI.DS ---
Discharge Summary Admission Date Oct 25, 2016 at 14:09 Admitting Diagnosis Diverticulitis (1) Sepsis ICD Code: A41.9 (2) Diverticulitis ICD Code: K57.92 (3) Melena ICD Code: K92.1 (4) Abdominal pain ICD Code: R10.9 (5) Hypokalemia ICD Code: E87.6 (6) Leucocytosis ICD Code: D72.829 (7) Constipation ICD Code: K59.00 (8) Vomiting ICD Code: R11.10 Brief History - From Admission Mr. Moreno is a 75-year-old male with known history of CHF, external hemorrhoids, hx of right inguinal hernia repair who presents to the ED with complaints of ongoing constipation for the past two weeks with 'the feeling of never fully defecating'. During that time, he admits to the presence of blood and pus in stool. Patient also reports severe pain that began upon awakening this am which occurs mostly in the groin and lower abdominal area. He does admit to occasional fever and diaphoretic episodes, but upon presentation he is afebrile. Denies taking anything for constipation or any pain medication, but does admit to daily marijuana use 'for pain and heart control'. Abdominal/ Pelvis CT reveals significant diverticulitis in the pelvis, involving the long segment of the colon with no presence of abscess. 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 Denies nausea, vomiting, chest pain, decreased appetite or shortness of breath. CBC/BMP: 11/03/16 0555 11/03/16 0555 Significant Findings Laboratory Tests Test 11/01/16 11/01/16 11/02/16 11/03/16 09:31 19:32 05:40 05:55 Platelet Count 591 TH/MM3 495 TH/MM3 470 TH/MM3 (150-450) (150-450) (150-450) Neutrophils (%) (Auto) 81.4 % 79.6 % 92.3 % (16.0-70.0) (16.0-70.0) (16.0-70.0) Neutrophils # (Auto) 8.6 TH/MM3 8.5 TH/MM3 22.2 TH/MM3 (1.8-7.7) (1.8-7.7) (1.8-7.7) Potassium Level 3.1 MEQ/L 3.3 MEQ/L 3.2 MEQ/L (3.5-5.1) (3.5-5.1) (3.5-5.1) Blood Urea Nitrogen 3 MG/DL (7-18) 2 MG/DL (7-18) 4 MG/DL (7-18) Creatinine 0.58 MG/DL 0.49 MG/DL 0.48 MG/DL (0.60-1.30) (0.60-1.30) (0.60-1.30) Random Glucose 121 MG/DL 136 MG/DL (74-106) (74-106) Calcium Level 8.0 MG/DL 8.0 MG/DL 7.1 MG/DL (8.5-10.1) (8.5-10.1) (8.5-10.1) Carcinoembryonic Antigen 6.2 NG/ML (0.2-5.0) Basophils (%) (Auto) 2.1 % (0.0-2.0) White Blood Count 24.1 TH/MM3 (4.0-11.0) Lymphocytes (%) (Auto) 2.3 % (9.0-44.0) Lymphocytes # (Auto) 0.6 TH/MM3 (1.0-4.8) Monocytes # (Auto) 1.3 TH/MM3 (0-0.9) Protein Corrected Calcium 8.4 MG/DL (8.5-10.1) Total Protein 4.7 GM/DL (6.4-8.2) PE at Discharge GENERAL: Well-nourished, well-developed pleasant 75 yo male patient. Lean. SKIN: Warm and dry. HEAD: Normocephalic. EYES: No scleral icterus. No injection or drainage. NECK: Supple, trachea midline. No JVD or lymphadenopathy. CARDIOVASCULAR: Regular rate and rhythm without murmurs, gallops, or rubs. RESPIRATORY: Breath sounds equal and clear to auscultation bilaterally. No accessory muscle use. GASTROINTESTINAL: Abdomen soft, nontender throughout without guarding, nondistended. EXTREMITIES: No cyanosis, or edema. NEUROLOGICAL: Awake, alert, and oriented x 3. Non-focal. Olesya Pollack MD Nov 03, 2016 07:48
[2016-11-03] MEDS: METOCLOPRAMIDE HCL 10 MG/2 ML VIAL IV PUSH SCH ×2 (08:44→21:53)
[2016-11-03] MEDS ORDERED: CALCIUM GLUCONATE INJ 1 GM in SODIUM CHLORIDE 0.9% INJ 100 ML IV ONE (09:00)
[2016-11-03] MEDS: POTASSIUM CHLOR 20 MEQ PREMIX 100 ML IV SCH ×2 (09:30→11:23)
[2016-11-03] MEDS: DRONABINOL 5 MG CAP PO SCH ×2 (11:00→17:28)
[2016-11-03] MEDS: TAMSULOSIN HCL 0.4 MG CAP PO SCH (17:28)
[2016-11-03] MEDS: FOLIC ACID 1 MG TAB PO SCH (17:28)
--- NOTE | 2016-11-03 23:45 | HHI.PR ---
Subjective Remarks C/R Surg POD # 1 afebrile, VSS UO good drain modest output Objective - Vital Signs Date Time Temp Pulse Resp B/P Pulse Ox O2 Delivery O2 Flow Rate FiO2 11/03/16 21:54 18 11/03/16 21:00 115 11/03/16 20:00 98.6 133/75 92 11/03/16 19:53 Nasal Cannula 2.00 Result Diagram: 11/03/16 0555 11/03/16 0555 Objective Remarks PE alert Abd - soft, wound dry, stoma pink A/P Assessment and Plan Imp: stable post-op OOB resp rx decr IVF Ubaldo Sigala MD Nov 03, 2016 23:45
[2016-11-04] VITALS (15 sets, daily range): BP systolic 125–149; BP diastolic 71–83; PULSE 96–124; RESP 18; TEMP 98.3–98.6; O2SAT 91–94
[2016-11-04] MEDS: CIPROFLOXACIN 200 MG PREMIX 100 ML IV SCH ×2 (00:17→13:00)
[2016-11-04] MEDS: metroNIDAZOLE 500 MG INJ 100 ML IV SCH ×3 (05:44→20:40)
[2016-11-04] MEDS: PCA - TOTAL MG MORPHINE DELIVERED PER SHIFT SCH ×3 (05:57→22:00)
[2016-11-04 06:09] LABS: BASOPHIL % 0.2 % (0.0-2.0); EOSINOPHIL % 0.1 % (0.0-4.0); HEMATOCRIT 38.2 % (39.0-51.0); HEMO FLAGS DIFF FINAL; LYMPH % 5.7 % (9.0-44.0); LYMPHOCYTE # 1.4 TH/MM3 (1.0-4.8); MEAN CELL VOLUME 85.6 FL (80.0-100.0); MEAN CORPUSCULAR HEMOGLOBIN 27.6 PG (27.0-34.0); MEAN CORPUSCULAR HGB CONC 32.3 % (32.0-36.0); MONO % 6.2 % (0.0-8.0); NEUT % 87.8 % (16.0-70.0); PLATELET COUNT 344 TH/MM3 (150-450); RED BLOOD COUNT 4.46 MIL/MM3 (4.50-5.90); RED CELL DISTRIBUTION WIDTH 14.2 % (11.6-17.2); WHITE BLOOD COUNT 23.9 TH/MM3 (4.0-11.0)
[2016-11-04] MEDS: SODIUM CHLOR 0.9% 1000 ML INJ 1,000 ML IV SCH (06:17)
[2016-11-04 06:28] LABS: BICARBONATE 27.5 MEQ/L (21.0-32.0); POTASSIUM 3.3 MEQ/L (3.5-5.1)
[2016-11-04] MEDS ORDERED: POTASSIUM CHLOR 40 MEQ PREMIX 100 ML IV ONE (10:00)
--- NOTE | 2016-11-04 10:25 | HHI.PR ---
Subjective Remarks Pain is controlled by meds. Using less PICK UP MAN pump. No n/v/d/c. Denies chest pain, sob. Diet advanced to CLD Objective Vitals Vital Signs Date Time Temp Pulse Resp B/P Pulse Ox O2 Delivery O2 Flow Rate FiO2 11/04/16 09:33 91 Nasal Cannula 3.00 11/04/16 05:57 18 11/04/16 04:00 98.6 106 18 125/71 94 11/04/16 03:02 92 2.00 11/04/16 00:00 98.6 103 18 126/75 92 11/04/16 00:00 92 2.00 11/03/16 21:54 18 11/03/16 21:00 115 11/03/16 20:00 98.6 114 18 133/75 92 11/03/16 20:00 90 2.00 11/03/16 20:00 109 11/03/16 19:53 93 Nasal Cannula 2.00 11/03/16 19:00 114 11/03/16 18:00 123 11/03/16 17:00 114 11/03/16 16:00 96 11/03/16 15:00 98.5 100 20 131/80 90 11/03/16 14:00 16 11/03/16 14:00 103 11/03/16 13:00 103 11/03/16 12:00 100 11/03/16 11:00 97.7 94 20 111/72 94 I/O 11/03/16 11/03/16 11/03/16 11/04/16 11/04/16 11/04/16 07:00 15:00 23:00 07:00 15:00 23:00 Intake Total 1225 ml 1635 ml 1300 ml Output Total 505 ml 425 ml 375 ml Balance 720 ml 1210 ml 925 ml Intake Oral 50 ml IV Total 1225 ml 1585 ml 1300 ml Output Urine Total 425 ml 400 ml 350 ml Stool Total 0 ml Drainage Total 80 ml 25 ml 25 ml Result Diagram: 11/04/16 0528 11/04/16 0528 Imaging Last Impressions Abdomen/Pelvis CT 11/01/16 0000 Signed Impressions: Service Date/Time: Tuesday, November 01, 2016 13:27 - CONCLUSION: 1. There is gaseous and fluid distention of the colon down to the distal sigmoid. The cecum measures 9 cm in transverse dimension. There is an area of abnormal, thickened colon with only minimal inflammatory change. Primary consideration for this would be a colitis involving the distal sigmoid and rectum versus malignancy. 2. There is a small amount of free fluid within the pelvis. 3. Left inguinal hernia. Curt Jack MD Head CT 10/28/16 0000 Signed Impressions: Service Date/Time: Friday, October 28, 2016 08:56 - CONCLUSION: No acute disease. Jered Jack MD FACR Abdomen X-Ray 10/28/16 0000 Signed Impressions: Service Date/Time: Friday, October 28, 2016 08:39 - CONCLUSION: Moderate stool throughout the colon. Jered Jack MD FACR Objective Remarks GENERAL: Well-nourished, well-developed pleasant 75 yo male patient. Lean. SKIN: Warm and dry. HEAD: Normocephalic. EYES: No scleral icterus. No injection or drainage. NECK: Supple, trachea midline. No JVD or lymphadenopathy. CARDIOVASCULAR: Regular rate and rhythm without murmurs, gallops, or rubs. RESPIRATORY: Breath sounds equal and clear to auscultation bilaterally. No accessory muscle use. GASTROINTESTINAL: Abdomen soft, + BS, drain in place, tenderness at the surgical site, dressings c/d/i, nondistended. EXTREMITIES: No cyanosis, or edema. NEUROLOGICAL: Awake, alert, and oriented x 3. Non-focal. A/P Problem List: (1) Sepsis ICD Code: A41.9 Status: Acute (2) Diverticulitis ICD Code: K57.92 Status: Acute (3) Melena ICD Code: K92.1 Status: Resolved (4) Abdominal pain ICD Code: R10.9 Status: Acute (5) Hypokalemia ICD Code: E87.6 Status: Acute (6) Leucocytosis ICD Code: D72.829 Status: Acute (7) Constipation ICD Code: K59.00 Status: Acute (8) Vomiting ICD Code: R11.10 Status: Acute Assessment and Plan Sigmoidal mass. Dr Sigala colorectal surgeon consulted S/P rectosigmoid removal 11/02/[address] Sigala. Pathology pending. Pain control with pain meds wean off PICK UP MAN Antiemetics/lax as need. Diverticulitis- Abdominal/Pelvis CT showed significant diverticulitis in the pelvis, involving the long segment of the colon with no presence of abscess. - leukocytosis resolved. No further abdominal pain. - Continue IVF. Normal saline 83 mL/h - Continue antibiotics include Cipro and Flagyl -Persistent vomiting. Resolved. This may be related to marijuana withdrawal. Started on Marinol and Reglan scheduled. S/P EGD and sigmoidoscopy as above found with sigmoidal mas. Continue Zofran when necessary. External hemorrhoids -H&H stable. - Heme and occult stool pos Constipation -resolved continue bowel regimen. Muscle weakness - subjective. Patient ambulating well and independently. Encourage continued ambulation. - CT brain ordered and reviewed: no acute disease Daily marijuana use.Counselled Moderate malnutrition. Hypokalemia-Receioved K-Lyte 50 mEq. Monitor lytes and replace as need. DVT Prevention - Sequential compression devices Discharge Planning Home when clinically improved and cleared by consultants. Problem Qualifiers (1) Sepsis: Qualified Code: A41.9 - Sepsis, due to unspecified organism (2) Abdominal pain: Qualified Code: R10.30 - Lower abdominal pain (3) Leucocytosis: Qualified Code: D72.829 - Leukocytosis, unspecified type Olesya Pollack MD Nov 04, 2016 10:25
[2016-11-04] MEDS: POTASSIUM CHLOR 20 MEQ PREMIX 100 ML IV SCH ×2 (11:00→13:00)
[2016-11-04] MEDS: D5-LR + KCL 20 MEQ INJ 1,000 ML IV SCH ×2 (11:07→20:00)
[2016-11-04] MEDS: TAMSULOSIN HCL 0.4 MG CAP PO SCH (11:07)
[2016-11-04] MEDS: FOLIC ACID 1 MG TAB PO SCH (11:07)
[2016-11-04] MEDS: METOCLOPRAMIDE HCL 10 MG/2 ML VIAL IV PUSH SCH ×2 (11:07→20:40)
[2016-11-04] MEDS: DRONABINOL 5 MG CAP PO SCH ×2 (12:02→16:49)
[2016-11-04] MEDS: ONDANSETRON HCL 4 MG/2 ML VIAL IVP PRN ×2 (18:24→23:41)
[2016-11-05] VITALS (11 sets, daily range): BP systolic 134–156; BP diastolic 76–82; PULSE 96–108; RESP 15–20; TEMP 95.7–99.3; O2SAT 92–100
[2016-11-05] MEDS: CIPROFLOXACIN 200 MG PREMIX 100 ML IV SCH ×2 (02:13→11:55)
[2016-11-05] MEDS: metroNIDAZOLE 500 MG INJ 100 ML IV SCH ×3 (04:35→20:28)
[2016-11-05] MEDS: ONDANSETRON HCL 4 MG/2 ML VIAL IVP PRN (05:17)
[2016-11-05] MEDS: PCA - TOTAL MG MORPHINE DELIVERED PER SHIFT SCH ×3 (05:57→20:28)
[2016-11-05] MEDS: D5-LR + KCL 20 MEQ INJ 1,000 ML IV SCH ×3 (06:00→17:29)
[2016-11-05 06:06] LABS: BICARBONATE 33.4 MEQ/L (21.0-32.0); MAGNESIUM 2.1 MG/DL (1.5-2.5); POTASSIUM 3.2 MEQ/L (3.5-5.1)
[2016-11-05 06:36] LABS: AUTOMATED NEUTROPHIL # 19.2 TH/MM3 (1.8-7.7); BASOPHIL # 0.1 TH/MM3 (0-0.2); BASOPHIL % 0.3 % (0.0-2.0); HEMATOCRIT 35.7 % (39.0-51.0); HEMO FLAGS DIFF FINAL; LYMPH % 2.7 % (9.0-44.0); LYMPHOCYTE # 0.6 TH/MM3 (1.0-4.8); MEAN CELL VOLUME 83.7 FL (80.0-100.0); MEAN CORPUSCULAR HEMOGLOBIN 27.4 PG (27.0-34.0); MEAN CORPUSCULAR HGB CONC 32.7 % (32.0-36.0); PLATELET COUNT 386 TH/MM3 (150-450); RED BLOOD COUNT 4.26 MIL/MM3 (4.50-5.90); RED CELL DISTRIBUTION WIDTH 14.4 % (11.6-17.2); WHITE BLOOD COUNT 20.9 TH/MM3 (4.0-11.0)
[2016-11-05] MEDS ORDERED: POTASSIUM CHLOR 20 MEQ PREMIX 100 ML IV ONE (07:15)
[2016-11-05] MEDS: POTASSIUM CHLOR 20 MEQ PREMIX 100 ML IV SCH ×2 (07:59→08:06)
[2016-11-05] MEDS: CALCIUM CARBONATE 500 MG CHEWABLE TAB CHEW SCH ×2 (07:59→20:26)
[2016-11-05] MEDS: METOCLOPRAMIDE HCL 10 MG/2 ML VIAL IV PUSH SCH ×2 (07:59→20:27)
[2016-11-05] MEDS: FOLIC ACID 1 MG TAB PO SCH (08:00)
[2016-11-05] MEDS: TAMSULOSIN HCL 0.4 MG CAP PO SCH (08:00)
[2016-11-05] MEDS ORDERED: CALCIUM GLUCONATE INJ 1 GM in SODIUM CHLORIDE 0.9% INJ 100 ML IV ONE (09:00)
--- NOTE | 2016-11-05 09:01 | HHI.PR ---
Subjective Remarks Seen forepart laster today. Patient with vomiting says multiple times . no blood in it. Also associated nausea. Has low K and Ca repla ed by IV. Place NGT to LIS, patient says he is improving. Says he is not passing gas and did not have a BM yet. Not much abdominal pain. says he is scarcely using the DESTINATION COORDINATOR pump. No fevers or chills overnight. Objective Vitals Vital Signs Date Time Temp Pulse Resp B/P Pulse Ox O2 Delivery O2 Flow Rate FiO2 11/05/16 05:57 18 11/05/16 05:56 18 11/05/16 04:00 97.9 108 18 139/78 92 11/05/16 00:00 97.6 98 20 134/76 92 11/04/16 22:00 18 11/04/16 22:00 18 11/04/16 21:00 124 11/04/16 20:00 122 11/04/16 19:59 Nasal Cannula 3.00 11/04/16 19:00 92 Nasal Cannula 2.00 11/04/16 19:00 114 11/04/16 15:00 98.4 108 18 127/79 93 11/04/16 15:00 103 11/04/16 14:00 18 11/04/16 11:30 98.3 113 18 143/83 94 11/04/16 11:00 114 11/04/16 10:00 110 11/04/16 09:33 91 Nasal Cannula 3.00 11/04/16 09:00 114 I/O 11/04/16 11/04/16 11/04/16 11/05/16 11/05/16 11/05/16 07:00 15:00 23:00 07:00 15:00 23:00 Intake Total 1300 ml 1480 ml 587 ml Output Total 375 ml 790 ml 540 ml Balance 925 ml 690 ml 47 ml Intake Oral 480 ml 120 ml IV Total 1300 ml 1000 ml 467 ml Output Urine Total 350 ml 700 ml 300 ml Stool Total 40 ml Emesis 150 ml Drainage Total 25 ml 50 ml 90 ml Bladder Scan Volume Amount 496 ml # Bowel Movements 0 0 Result Diagram: 11/05/16 0507 11/05/16 0507 Imaging Last Impressions Abdomen/Pelvis CT 11/01/16 0000 Signed Impressions: Service Date/Time: Tuesday, November 01, 2016 13:27 - CONCLUSION: 1. There is gaseous and fluid distention of the colon down to the distal sigmoid. The cecum measures 9 cm in transverse dimension. There is an area of abnormal, thickened colon with only minimal inflammatory change. Primary consideration for this would be a colitis involving the distal sigmoid and rectum versus malignancy. 2. There is a small amount of free fluid within the pelvis. 3. Left inguinal hernia. Curt Jack MD Head CT 10/28/16 0000 Signed Impressions: Service Date/Time: Friday, October 28, 2016 08:56 - CONCLUSION: No acute disease. Jered Jack MD FACR Abdomen X-Ray 10/28/16 0000 Signed Impressions: Service Date/Time: Friday, October 28, 2016 08:39 - CONCLUSION: Moderate stool throughout the colon. Jered Jack MD FACR Objective Remarks GENERAL: Well-nourished, well-developed pleasant 75 yo male patient. Lean. SKIN: Warm and dry. HEAD: Normocephalic. EYES: No scleral icterus. No injection or drainage. NECK: Supple, trachea midline. No JVD or lymphadenopathy. CARDIOVASCULAR: Regular rate and rhythm without murmurs, gallops, or rubs. RESPIRATORY: Breath sounds equal and clear to auscultation bilaterally. No accessory muscle use. GASTROINTESTINAL: Abdomen soft, + BS, drain in place, tenderness at the surgical site, dressings c/d/i, nondistended. EXTREMITIES: No cyanosis, or edema. NEUROLOGICAL: Awake, alert, and oriented x 3. Non-focal. A/P Problem List: (1) Sepsis ICD Code: A41.9 Status: Acute (2) Diverticulitis ICD Code: K57.92 Status: Acute (3) Melena ICD Code: K92.1 Status: Resolved (4) Abdominal pain ICD Code: R10.9 Status: Acute (5) Hypokalemia ICD Code: E87.6 Status: Acute (6) Leucocytosis ICD Code: D72.829 Status: Acute (7) Constipation ICD Code: K59.00 Status: Acute (8) Vomiting ICD Code: R11.10 Status: Acute Assessment and Plan Sigmoidal mass. Dr Sigala colorectal surgeon consulted S/P rectosigmoid removal 11/02/[address] Sigala. Pathology pending. Pain control with pain meds wean off DESTINATION COORDINATOR Antiemetics/lax as need. Diverticulitis- Abdominal/Pelvis CT showed significant diverticulitis in the pelvis, involving the long segment of the colon with no presence of abscess. - leukocytosis worsened after surgery. - Continue IVF. - Continue antibiotics including Cipro and Flagyl -Vomiting again 11/05. Patient with likely ileus. NPO can have ice chips. NGT placed on low intermittent suction. Monitor lytes and replace. Reglan scheduled. Continue Zofran when necessary. S/P EGD and sigmoidoscopy as above found with sigmoidal mas. External hemorrhoids -H&H stable. - Heme and occult stool pos Constipation -resolved continue bowel regimen. Muscle weakness - subjective. Patient ambulating well and independently. Encourage continued ambulation. - CT brain ordered and reviewed: no acute disease Daily marijuana use.Counselled. On marinol at this time, also to increase appetite. Patient was started on marinol on admission because of persistent vomiting, and patient is with daily marijuana use. Moderate malnutrition. Hypokalemia- Received KCL. Monitor lytes and replace as need. Will replace by IV. Patient also was noted with vomiting/and is on NGT low suction. Hypocalcemia: Replace with IV Ca gluconate x1 . MOnitor and replace as need DVT Prevention - Sequential compression devices Discharge Planning Home when clinically improved and cleared by consultants. Problem Qualifiers (1) Sepsis: Qualified Code: A41.9 - Sepsis, due to unspecified organism (2) Abdominal pain: Qualified Code: R10.30 - Lower abdominal pain (3) Leucocytosis: Qualified Code: D72.829 - Leukocytosis, unspecified type Olesya Pollack MD Nov 05, 2016 09:01
[2016-11-05] MEDS ORDERED: SODIUM CHLORID 0.9% 500 ML INJ 500 ML IV ONE (10:00)
[2016-11-05] MEDS: DRONABINOL 5 MG CAP PO SCH ×2 (10:24→15:50)
--- NOTE | 2016-11-05 10:25 | RADRPT ---
EXAM DATE/TIME: 11/05/2016 09:18 [place] COMPARISON: CT ABDOMEN & PELVIS W CONTRAST, November 01, 2016, 13:27. ABDOMEN FLAT & UPRIGHT, October 28, 2016, 8:39. INDICATIONS : Ileus. MEDICAL HISTORY : Congestive heart failure. SURGICAL HISTORY : None. ENCOUNTER: Subsequent ACUITY: 1 week PAIN SCORE: 0/10 LOCATION: Bilateral Abdomen FINDINGS: Upright supine views of the abdomen demonstrate a small amount of free air under the diaphragm. There are midline surgical candido present a new ostomy overlying the right mid abdomen a drain overlying the midline pelvis. There is air identified within nondilated small bowel and a small amount of air i dentified within the right colon. There is an NG tube with the proximal port below the level of the d iaphragm the tip in the distal stomach. Slight blunting of the left costophrenic angle which may repr esent fluid versus atelectasis. CONCLUSION: Postsurgical changes with new ostomy and no current evidence of bowel obstruction. Deanna Singh MD on November 05, 2016 at 10:20 Board Certified Radiologist. This report was verified electronically.
[2016-11-05] MEDS ORDERED: POTASSIUM CHLOR 20 MEQ PREMIX 100 ML IV PRN (11:15)
--- NOTE | 2016-11-05 15:37 | MB ---
cc: LEONIDES MENDEZ M.D. DATE OF CONSULTATION November 02, 2016 REASON FOR CONSULTATION Colonic obstruction. HISTORY OF PRESENT ILLNESS Mr. Moreno is a 75-year-old male admitted about a week ago for abdominal pain, mostly left lower quadrant and some rectal drainage and discharge. Workup revealed inflammatory process in the rectosigmoid consistent with diverticulitis. He has been treated since that time with broad-spectrum antibiotics with very little improvement. The patient continued to have obstructive type symptoms and an increasing abdominal distension. CAT scan was repeated after a week of antibiotics and was read more consistent now with a mass in the rectosigmoid with less inflammation. The patient was seen by Dr. Sebastian and underwent a sigmoidoscopy which demonstrated mass obstructing the lumen of the rectosigmoid which was unable to be passed. Distal rectosigmoid appeared unremarkable. The undersigned was consulted for further workup and evaluation of this colonic obstruction. Mr. Moreno had been having difficulty with bowel movements for some time prior to admission, noting increased frequency and tenderness of the stools. Denies any real nausea or vomiting until admission. No fevers. Has had quite a bit of mucus discharge but denies any significant bleeding or melena. Appetite has been good, unsure about his weight loss. Please see the admitting history and physical and consultations for more complete past medical and surgical history. PERTINENT PHYSICAL GENERAL: A very pleasant thin, scrawny male in no acute distress. HEENT: Remarkable for dry but pink membranes, nonicteric sclera. NECK: Neck was stiff without adenopathy. CHEST: Coarse bilaterally, symmetrical expanding. HEART: Heart had a regular rhythm. ABDOMEN: Abdomen was round, somewhat tympanic and bowel sounds are pretty normal. No rebound or guarding or masses. ANAL INSPECTION: Revealed benign canal. Digital exam revealed tenderness with some mass or fullness in the cul-de-sac. No mucosal irregularity. Some blood on the finger. EXTREMITIES: No cyanosis or clubbing and 1+ pedal edema. LABORATORY FINDINGS All reviewed including his CAT scans. IMPRESSION A 75-year-old male with apparent colonic obstruction, either due to diverticulitis or a colonic neoplasm. Does seem to be comfortable but cecum is 9-10 cm in size on his most recent CAT scan. Will hold on getting a Gastrografin enema to avoid further distension of the proximal colon. Discussed at great length with the patient and recommended either simple diverting loop colostomy versus exploratory laparotomy and resection of the obstruction with either an end colostomy or anastomosis and diverting ileostomy. The risks benefits, alternatives to all the surgical options were reviewed with the patient and he is in agreement with proceeding to surgery and hoping to avoid a stoma if possible, depending upon operative findings. Risks, benefits and alternatives were discussed and reviewed in detail and we will set up his surgery in the afternoon or early evening after transfer from [place] to the [facility]. Leonides Mendez MD AR/EO /2:37 PM /3:23 PM
[2016-11-05] MEDS: ENOXAPARIN SODIUM 40 MG/0.4 ML SYRINGE SQ SCH (20:27)
[2016-11-06] VITALS (8 sets, daily range): BP systolic 113–139; BP diastolic 65–76; PULSE 96–111; RESP 17–20; TEMP 96.2–97.9; O2SAT 86–96
[2016-11-06] MEDS: D5-LR + KCL 20 MEQ INJ 1,000 ML IV SCH ×3 (01:27→21:15)
[2016-11-06] MEDS: CIPROFLOXACIN 200 MG PREMIX 100 ML IV SCH ×2 (01:28→17:25)
[2016-11-06] MEDS: metroNIDAZOLE 500 MG INJ 100 ML IV SCH ×3 (04:17→20:00)
[2016-11-06] MEDS: PCA - TOTAL MG MORPHINE DELIVERED PER SHIFT SCH ×2 (04:46→21:15)
[2016-11-06] MEDS: MORPHINE SULFATE 30 MG/30 ML PCA IV SCH (04:54)
[2016-11-06 05:28] LABS: AUTOMATED NEUTROPHIL # 12.3 TH/MM3 (1.8-7.7); BASOPHIL % 0.2 % (0.0-2.0); EOSINOPHIL # 0.2 TH/MM3 (0-0.4); EOSINOPHIL % 1.1 % (0.0-4.0); HEMATOCRIT 38.6 % (39.0-51.0); HEMO FLAGS DIFF FINAL; LYMPH % 9.3 % (9.0-44.0); LYMPHOCYTE # 1.4 TH/MM3 (1.0-4.8); MEAN CELL VOLUME 84.1 FL (80.0-100.0); MEAN CORPUSCULAR HEMOGLOBIN 27.4 PG (27.0-34.0); MEAN CORPUSCULAR HGB CONC 32.6 % (32.0-36.0); MONO % 6.8 % (0.0-8.0); NEUT % 82.6 % (16.0-70.0); PLATELET COUNT 408 TH/MM3 (150-450); RED CELL DISTRIBUTION WIDTH 14.4 % (11.6-17.2); WHITE BLOOD COUNT 14.8 TH/MM3 (4.0-11.0)
[2016-11-06 05:50] LABS: BICARBONATE 34.5 MEQ/L (21.0-32.0); MAGNESIUM 2.1 MG/DL (1.5-2.5); POTASSIUM 3.2 MEQ/L (3.5-5.1)
--- NOTE | 2016-11-06 08:35 | HHI.PR ---
Subjective Remarks Did not pass gas, did not have a BM. NGT on suction with clear liquid ( from ice chips) No fever or chills. Says she has more phlegm, he is coughing more. No feevrs or chills. Not much pain, however he is still using [employer] Objective Vitals Vital Signs Date Time Temp Pulse Resp B/P Pulse Ox O2 Delivery O2 Flow Rate FiO2 11/06/16 08:00 97.9 96 17 125/72 96 11/06/16 04:54 20 11/06/16 04:46 20 11/06/16 04:00 96.2 99 19 121/74 96 11/06/16 00:07 96.6 108 20 139/73 95 11/05/16 22:00 18 11/05/16 20:30 Nasal Cannula 3.00 11/05/16 20:28 18 11/05/16 20:00 96.3 96 20 156/76 100 11/05/16 19:37 98 Nasal Cannula 3.00 11/05/16 16:00 99.3 100 17 139/76 98 11/05/16 14:00 15 11/05/16 14:00 18 11/05/16 12:00 97.5 98 18 154/81 96 11/05/16 10:32 98 Nasal Cannula 3.00 I/O 11/05/16 11/05/16 11/05/16 11/06/16 11/06/16 11/06/16 07:00 15:00 23:00 07:00 15:00 23:00 Intake Total 587 ml 1364 ml 793 ml 1107 ml Output Total 540 ml 1670 ml 1600 ml 1470 ml Balance 47 ml -306 ml -807 ml -363 ml Intake Oral 120 ml 0 ml 0 ml 0 ml IV Total 467 ml 1364 ml 793 ml 1107 ml Output Urine Total 300 ml 600 ml 700 ml 450 ml Stool Total 0 ml Gastric Drainage Total 1000 ml 900 ml 1000 ml Emesis 150 ml Drainage Total 90 ml 70 ml 0 ml 20 ml Bladder Scan Volume Amount 496 ml # Bowel Movements 0 0 0 0 Result Diagram: 11/06/16 0430 11/06/16 0430 Imaging Last Impressions Abdomen X-Ray 11/05/16 0000 Signed Impressions: Service Date/Time: Saturday, November 05, 2016 09:18 - CONCLUSION: Postsurgical changes with new ostomy and no current evidence of bowel obstruction. Deanna Singh MD Abdomen/Pelvis CT 11/01/16 0000 Signed Impressions: Service Date/Time: Tuesday, November 01, 2016 13:27 - CONCLUSION: 1. There is gaseous and fluid distention of the colon down to the distal sigmoid. The cecum measures 9 cm in transverse dimension. There is an area of abnormal, thickened colon with only minimal inflammatory change. Primary consideration for this would be a colitis involving the distal sigmoid and rectum versus malignancy. 2. There is a small amount of free fluid within the pelvis. 3. Left inguinal hernia. Curt Jack MD Head CT 10/28/16 0000 Signed Impressions: Service Date/Time: Friday, October 28, 2016 08:56 - CONCLUSION: No acute disease. Jered Jack MD FACR Objective Remarks GENERAL: Well-nourished, well-developed pleasant 75 yo male patient. Lean. SKIN: Warm and dry. HEAD: Normocephalic. EYES: No scleral icterus. No injection or drainage. NECK: Supple, trachea midline. No JVD or lymphadenopathy. CARDIOVASCULAR: Regular rate and rhythm without murmurs, gallops, or rubs. RESPIRATORY: Breath sounds equal and clear to auscultation bilaterally. No accessory muscle use. GASTROINTESTINAL: Abdomen soft, diminished BS, drain in place, tenderness at the surgical site, dressings c/d/i, nondistended. EXTREMITIES: No cyanosis, or edema. NEUROLOGICAL: Awake, alert, and oriented x 3. Non-focal. A/P Problem List: (1) Sepsis ICD Code: A41.9 Status: Acute (2) Diverticulitis ICD Code: K57.92 Status: Acute (3) Melena ICD Code: K92.1 Status: Resolved (4) Abdominal pain ICD Code: R10.9 Status: Acute (5) Hypokalemia ICD Code: E87.6 Status: Acute (6) Leucocytosis ICD Code: D72.829 Status: Acute (7) Constipation ICD Code: K59.00 Status: Acute (8) Vomiting ICD Code: R11.10 Status: Acute Assessment and Plan Sigmoidal mass. Dr Sigala colorectal surgeon consulted S/P rectosigmoid removal 11/02/[address] Ritter. Pathology pending. Pain control with pain meds wean off [employer] Antiemetics/lax as need. Diverticulitis- Abdominal/Pelvis CT showed significant diverticulitis in the pelvis, involving the long segment of the colon with no presence of abscess. - leukocytosis worsened after surgery. - Continue IVF. - Continue antibiotics including Cipro and Flagyl -Ileus likely postsurgical. Vomiting again 11/05. Patient with likely ileus. NPO can have ice chips. NGT placed on low intermittent suction. Monitor lytes and replace. Abx Xray reviewed no signs of obstruction Reglan scheduled. Continue Zofran when necessary. S/P EGD and sigmoidoscopy as above found with sigmoidal mas. External hemorrhoids -H&H stable. - Heme and occult stool pos Constipation -resolved continue bowel regimen. Muscle weakness - subjective. Patient ambulating well and independently. Encourage continued ambulation. - CT brain ordered and reviewed: no acute disease Daily marijuana use.Counselled. On marinol at this time, also to increase appetite. Patient was started on marinol on admission because of persistent vomiting, and patient is with daily marijuana use. Moderate malnutrition. Hypokalemia- Received KCL. Monitor lytes and replace as need. Will replace by IV as patient is NPO. Patient also was noted with vomiting/and is on NGT low suction. Hypocalcemia: Replace with IV Ca gluconate x1 . MOnitor and replace as need DVT Prevention - Sequential compression devices Discharge Planning Home when clinically improved and cleared by consultants. Problem Qualifiers (1) Sepsis: Qualified Code: A41.9 - Sepsis, due to unspecified organism (2) Abdominal pain: Qualified Code: R10.30 - Lower abdominal pain (3) Leucocytosis: Qualified Code: D72.829 - Leukocytosis, unspecified type Olesya Pollack MD Nov 06, 2016 08:35
[2016-11-06] MEDS ORDERED: RESP: ALBUTEROL 2.5 MG/IPRATROPIUM 0.5 MG NEB (PRN) NEB (10:00)
[2016-11-06] MEDS: TAMSULOSIN HCL 0.4 MG CAP PO SCH (10:31)
[2016-11-06] MEDS: FOLIC ACID 1 MG TAB PO SCH (10:31)
[2016-11-06] MEDS: POTASSIUM CHLOR 20 MEQ PREMIX 100 ML IV SCH ×2 (10:31→10:39)
[2016-11-06] MEDS: METOCLOPRAMIDE HCL 10 MG/2 ML VIAL IV PUSH SCH ×3 (10:32→21:14)
[2016-11-06] MEDS: CALCIUM CARBONATE 500 MG CHEWABLE TAB CHEW SCH ×2 (10:32→21:14)
[2016-11-06] MEDS: PANTOPRAZOLE SODIUM 40 MG VIAL IV PUSH SCH (10:32)
[2016-11-06] MEDS: DRONABINOL 5 MG CAP PO SCH ×2 (10:38→16:00)
[2016-11-06] MEDS: guaiFENesin E.R. 600 MG TAB PO SCH ×2 (10:38→21:14)
[2016-11-06] MEDS: ENOXAPARIN SODIUM 40 MG/0.4 ML SYRINGE SQ SCH (21:14)
[2016-11-07] VITALS (9 sets, daily range): BP systolic 126–152; BP diastolic 70–89; PULSE 99–117; RESP 17–19; TEMP 97.5–98.8; O2SAT 92–95
[2016-11-07] MEDS: CIPROFLOXACIN 200 MG PREMIX 100 ML IV SCH ×3 (01:00→23:56)
[2016-11-07] MEDS: PCA - TOTAL MG MORPHINE DELIVERED PER SHIFT SCH ×3 (05:14→19:47)
[2016-11-07] MEDS: METOCLOPRAMIDE HCL 10 MG/2 ML VIAL IV PUSH SCH ×4 (05:14→23:56)
[2016-11-07] MEDS: metroNIDAZOLE 500 MG INJ 100 ML IV SCH ×3 (05:14→19:46)
[2016-11-07] MEDS: D5-LR + KCL 20 MEQ INJ 1,000 ML IV SCH ×3 (05:19→23:57)
[2016-11-07 05:50] LABS: BASOPHIL % 0.4 % (0.0-2.0); EOSINOPHIL # 0.2 TH/MM3 (0-0.4); EOSINOPHIL % 1.6 % (0.0-4.0); HEMATOCRIT 35.9 % (39.0-51.0); HEMO FLAGS DIFF FINAL; LYMPH % 10.7 % (9.0-44.0); LYMPHOCYTE # 1.2 TH/MM3 (1.0-4.8); MEAN CELL VOLUME 83.7 FL (80.0-100.0); MEAN CORPUSCULAR HEMOGLOBIN 27.9 PG (27.0-34.0); MEAN CORPUSCULAR HGB CONC 33.3 % (32.0-36.0); MONO % 8.9 % (0.0-8.0); NEUT % 78.4 % (16.0-70.0); PLATELET COUNT 422 TH/MM3 (150-450); RED BLOOD COUNT 4.29 MIL/MM3 (4.50-5.90); RED CELL DISTRIBUTION WIDTH 14.6 % (11.6-17.2); WHITE BLOOD COUNT 11.5 TH/MM3 (4.0-11.0)
[2016-11-07 06:06] LABS: BICARBONATE 30.1 MEQ/L (21.0-32.0); POTASSIUM 3.8 MEQ/L (3.5-5.1)
--- NOTE | 2016-11-07 08:08 | HHI.PR ---
Subjective Remarks Complaining of nausea/dry heaves. NGT in place. Patient says he has pain worsening with nausea/dry heaves. No fevers or chills. Stoma in place with dark colored drain. Leukocytosis improving. K normal today. Objective Vitals Vital Signs Date Time Temp Pulse Resp B/P Pulse Ox O2 Delivery O2 Flow Rate FiO2 11/07/16 05:14 20 11/07/16 04:00 98.0 99 18 140/73 92 11/07/16 00:00 98.8 107 18 136/77 92 11/06/16 21:15 18 11/06/16 20:00 97.9 111 18 135/76 92 11/06/16 18:08 95 Nasal Cannula 2.00 11/06/16 16:00 97.7 109 17 125/70 95 11/06/16 12:00 96.9 103 18 113/65 92 11/06/16 10:22 94 Nasal Cannula 2.00 11/06/16 10:22 86 21 I/O 11/06/16 11/06/16 11/06/16 11/07/16 11/07/16 11/07/16 07:00 15:00 23:00 07:00 15:00 23:00 Intake Total 1107 ml 3305 ml 60 ml Output Total 1470 ml 500 ml 530 ml 525 ml Balance -363 ml -500 ml 2775 ml -465 ml Intake Oral 0 ml 30 ml 60 ml IV Total 1107 ml 2500 ml Tube Irrigant 775 ml Output Urine Total 450 ml 500 ml 500 ml 450 ml Stool Total 0 ml 0 ml 75 ml Gastric Drainage Total 1000 ml 30 ml Drainage Total 20 ml # Bowel Movements 0 Result Diagram: 11/07/16 0506 11/07/16 0506 Imaging Last Impressions Abdomen X-Ray 11/05/16 0000 Signed Impressions: Service Date/Time: Saturday, November 05, 2016 09:18 - CONCLUSION: Postsurgical changes with new ostomy and no current evidence of bowel obstruction. Deanna Singh MD Abdomen/Pelvis CT 11/01/16 0000 Signed Impressions: Service Date/Time: Tuesday, November 01, 2016 13:27 - CONCLUSION: 1. There is gaseous and fluid distention of the colon down to the distal sigmoid. The cecum measures 9 cm in transverse dimension. There is an area of abnormal, thickened colon with only minimal inflammatory change. Primary consideration for this would be a colitis involving the distal sigmoid and rectum versus malignancy. 2. There is a small amount of free fluid within the pelvis. 3. Left inguinal hernia. Curt Jack MD Head CT 10/28/16 0000 Signed Impressions: Service Date/Time: Friday, October 28, 2016 08:56 - CONCLUSION: No acute disease. Jered Jack MD FACR Objective Remarks GENERAL: Well-nourished, well-developed pleasant 75 yo male patient. Lean. SKIN: Warm and dry. HEAD: Normocephalic. EYES: No scleral icterus. No injection or drainage. NECK: Supple, trachea midline. No JVD or lymphadenopathy. CARDIOVASCULAR: Regular rate and rhythm without murmurs, gallops, or rubs. RESPIRATORY: Breath sounds equal and clear to auscultation bilaterally. No accessory muscle use. GASTROINTESTINAL: Abdomen soft, diminished BS, drain in place, tenderness at the surgical site, dressings c/d/i, nondistended. EXTREMITIES: No cyanosis, or edema. NEUROLOGICAL: Awake, alert, and oriented x 3. Non-focal. A/P Problem List: (1) Sepsis ICD Code: A41.9 Status: Acute (2) Diverticulitis ICD Code: K57.92 Status: Acute (3) Melena ICD Code: K92.1 Status: Resolved (4) Abdominal pain ICD Code: R10.9 Status: Acute (5) Hypokalemia ICD Code: E87.6 Status: Acute (6) Leucocytosis ICD Code: D72.829 Status: Acute (7) Constipation ICD Code: K59.00 Status: Acute (8) Vomiting ICD Code: R11.10 Status: Acute Assessment and Plan Sigmoidal mass. Dr Sigala colorectal surgeon consulted S/P rectosigmoid removal 11/02/[address] Sigala. Pathology pending. 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 Diverticulitis- Abdominal/Pelvis CT showed significant diverticulitis in the pelvis, involving the long segment of the colon with no presence of abscess. - leukocytosis worsened after surgery. - Continue IVF. - Continue antibiotics including Cipro and Flagyl -Ileus likely postsurgical. Vomiting again 11/05. Patient with likely ileus. NPO can have ice chips. NGT placed on low intermittent suction. Monitor lytes and replace. Abx Xray reviewed no signs of obstruction Reglan scheduled. Continue Zofran when necessary. S/P EGD and sigmoidoscopy as above found with sigmoidal mas. External hemorrhoids -H&H stable. - Heme and occult stool pos Constipation -resolved continue bowel regimen. Muscle weakness - subjective. Patient ambulating well and independently. Encourage continued ambulation. - CT brain ordered and reviewed: no acute disease Daily marijuana use.Counselled. On marinol at this time, also to increase appetite. Patient was started on marinol on admission because of persistent vomiting, and patient is with daily marijuana use. Moderate malnutrition. Hypokalemia- Received KCL. Monitor lytes and replace as need. Patient also was noted with vomiting/and is on NGT low suction -> might contribute to lyte abn as well. Hypocalcemia: Replaced. Monitor and replace as need DVT Prevention - Sequential compression devices Discharge Planning Home when clinically improved and cleared by consultants. Problem Qualifiers (1) Sepsis: Qualified Code: A41.9 - Sepsis, due to unspecified organism (2) Abdominal pain: Qualified Code: R10.30 - Lower abdominal pain (3) Leucocytosis: Qualified Code: D72.829 - Leukocytosis, unspecified type Olesya Pollack MD Nov 07, 2016 08:08
[2016-11-07] MEDS: DRONABINOL 5 MG CAP PO SCH ×2 (08:32→15:40)
[2016-11-07] MEDS: PANTOPRAZOLE SODIUM 40 MG VIAL IV PUSH SCH (08:34)
[2016-11-07] MEDS: CALCIUM CARBONATE 500 MG CHEWABLE TAB CHEW SCH ×2 (08:34→19:47)
[2016-11-07] MEDS: FOLIC ACID 1 MG TAB PO SCH (08:34)
[2016-11-07] MEDS: guaiFENesin E.R. 600 MG TAB PO SCH ×2 (08:34→19:47)
[2016-11-07] MEDS: TAMSULOSIN HCL 0.4 MG CAP PO SCH (08:34)
--- NOTE | 2016-11-07 09:56 | MP ---
cc: LEONIDES MENDEZ M.D. DATE OF SURGERY: 11/02/2016 PREOPERATIVE DIAGNOSIS Colonic obstruction. PROCEDURE 1. Exploratory laparotomy with proctosigmoidectomy, low pelvic anastomosis and diverting ileostomy. 2. On-table bowel prep. 3. Omental flap. POSTOPERATIVE DIAGNOSIS Colonic obstruction due to diverticulitis. SURGEON Dr. Leonides Mendez EQUIPMENT OPERATOR INTERMODAL YARD SURGEON Dr. Attila Martinez DETAILS OF PROCEDURE The patient was placed in the supine position. After adequate general anesthesia his legs were placed in the universal stirrups and supported appropriately. The abdomen and perineum were then prepped with Betadine solution and draped in the usual sterile fashion. With Dr. Martinez's assistance the abdomen was opened through a midline incision. Upon entering the abdomen the colon was quite distended but full of mostly liquid stool and gas. There was a rock-hard mass in the rectosigmoid with some tortuosity and fixation to the left pelvic sidewall as the point of obstruction. The bowel was also stuck down to the pelvis but the rectum distal to this area did appear to be a little more normal. The small bowel was run from the ligament of Treitz down to the ileocecal valve and was pretty unremarkable except for a Meckel's diverticulum. Stomach and duodenum were normal. The liver and gallbladder were unremarkable. Great vessels were somewhat tortuous and calcified but of normal caliber. First the sigmoid colon was mobilized medially by dividing along the white line of Toldt. The left ureter was identified and carefully preserved. Dissection then proceeded mobilizing the left colon off the retroperitoneum. The right retroperitoneal space was then opened and the bowel dissected off the presacral fascia preserving the presacral nerves. The pedicle for the superior hemorrhoidal vessels was identified and divided between Kellys, obtaining hemostasis with Vicryl ties. Dissection then proceeded elevating the bowel off the presacral fascia down to the pelvic floor. The bowel was mobilized off the pelvic sidewall, dividing the dense attachments with electrocautery and blunt dissection, preserving the left ureter. After full mobilization there was a point in the proximal rectum where the bowel appeared to be more normal, although somewhat edematous and the mesorectum was taken using electrocautery and Vicryl ties for hemostasis. The bowel was then divided between a TA 60 stapler and a Radha clamp. The splenic flexure was then mobilized for full left mobilization, entering the lesser sac and taking the gastrocolic omentum off the transverse colon. The pedicle for the left colic vessels was identified and divided between Kellys obtaining hemostasis with Vicryl ties. After adequate mobilization the bowel was able to reach the rectal pouch without tension and with good blood supply dividing the marginal artery at the appropriate point in the proximal sigmoid. The bowel was then divided between a pursestring suture device and a Radha clamp. The bowel was taken to a back table, opened and found to contain only diverticular disease. No sign of any malignancy. On-table bowel prep was then undertaken rinsing the proximal bowel with several liters of normal saline until the effluent was pretty clear. The end of the bowel was sized to accept an EEA stapling anvil and this was secured with a pursestring suture. Dr. Martinez inserted the EEA stapling instrument transanally and inserted it up to the end of the rectal pouch and the trocar advanced. The stapler was then reassembled, the bowel aligned properly, the staple closed and fired. Upon withdrawal two complete doughnuts of tissue were seen. Gentle insufflation confirmed an airtight anastomosis. The abdomen was then irrigated copiously with normal saline. Adequate hemostasis achieved. Omentum was passed down the left gutter to wrap around the anastomosis. A loop of terminal ileum was chosen for the diverting ileostomy and an avascular plane created in the mesentery. A circular stab wound was created in the right side of the abdomen and the loop brought up through the stab wound without tension and with good blood supply. A Kun-Cee drain was then placed down into the presacral space and brought up through a stab wound in the right lower quadrant and secured to the skin with a nylon suture. The midline incision was then closed anatomically in one layer using a running #1 PDS suture to reapproximate the respective midline fascia. The subcu tissue was irrigated copiously and the skin closed loosely with a row of surgical candido. The wound area was washed with normal saline and dried, sterile dressing of Telfa and gauze applied. Finally the loop ileostomy was matured in the usual Danielle fashion by creating an enterotomy and maturing the proximal limb with a row of interrupted chromic catgut sutures around the circumference. At completion the stoma did appear to be viable and was patent through the fascial level. A sterile ileostomy appliance was fitted over the new stoma. The patient tolerated the procedure quite well and was brought to the recovery room in stable condition. Sponge and needle counts were correct at the end of the procedure. MD SHERRY Brown/DAVID /2:28 PM /9:42 AM
--- NOTE | 2016-11-07 18:30 | HHI.PR ---
Subjective Remarks C/R Surg POD # 5 afebrile, VSS UO good drain modest output NGT less Objective - Vital Signs Date Time Temp Pulse Resp B/P Pulse Ox O2 Delivery O2 Flow Rate FiO2 11/07/16 16:00 97.6 105 17 139/78 95 11/07/16 08:30 Nasal Cannula 3.00 11/06/16 10:22 21 Result Diagram: 11/07/16 0506 11/07/16 0506 Objective Remarks PE alert Abd - soft, wound dry, stoma pink - functioning A/P Assessment and Plan Imp: OOB resp rx decr IVF dc NGT Ubaldo Sigala MD Nov 07, 2016 18:30
[2016-11-07] MEDS: ENOXAPARIN SODIUM 40 MG/0.4 ML SYRINGE SQ SCH (19:47)
[2016-11-08] VITALS (7 sets, daily range): BP systolic 120–137; BP diastolic 74–85; PULSE 94–115; RESP 12–18; TEMP 96.6–99.1; O2SAT 93–95
[2016-11-08] MEDS: metroNIDAZOLE 500 MG INJ 100 ML IV SCH ×3 (04:28→21:05)
[2016-11-08] MEDS: METOCLOPRAMIDE HCL 10 MG/2 ML VIAL IV PUSH SCH ×3 (04:29→17:06)
[2016-11-08] MEDS: PCA - TOTAL MG MORPHINE DELIVERED PER SHIFT SCH (04:34)
[2016-11-08 08:21] LABS: AUTOMATED NEUTROPHIL # 8.5 TH/MM3 (1.8-7.7); BASOPHIL # 0.1 TH/MM3 (0-0.2); BASOPHIL % 0.6 % (0.0-2.0); EOSINOPHIL # 0.1 TH/MM3 (0-0.4); EOSINOPHIL % 1.3 % (0.0-4.0); HEMATOCRIT 36.6 % (39.0-51.0); HEMO FLAGS DIFF FINAL; LYMPH % 12.7 % (9.0-44.0); LYMPHOCYTE # 1.4 TH/MM3 (1.0-4.8); MEAN CELL VOLUME 83.9 FL (80.0-100.0); MEAN CORPUSCULAR HEMOGLOBIN 28.5 PG (27.0-34.0); MONO % 7.4 % (0.0-8.0); PLATELET COUNT 406 TH/MM3 (150-450); RED BLOOD COUNT 4.36 MIL/MM3 (4.50-5.90); RED CELL DISTRIBUTION WIDTH 14.7 % (11.6-17.2); WHITE BLOOD COUNT 10.9 TH/MM3 (4.0-11.0)
[2016-11-08 08:39] LABS: BICARBONATE 29.3 MEQ/L (21.0-32.0); MAGNESIUM 1.9 MG/DL (1.5-2.5); POTASSIUM 3.7 MEQ/L (3.5-5.1)
--- NOTE | 2016-11-08 09:16 | HHI.PR ---
Subjective Remarks Feels tired. NGT removed, no more nausea or vomiting. Abdominal pain is fairly controlled by meds. No fever or chills. Says he has a BM and also output from the stoma, also gas in the stoma. Objective Vitals Vital Signs Date Time Temp Pulse Resp B/P Pulse Ox O2 Delivery O2 Flow Rate FiO2 11/08/16 04:34 18 11/08/16 04:00 99.0 115 18 131/85 94 11/08/16 00:00 99.1 94 18 137/79 95 11/07/16 21:21 94 Nasal Cannula 3.00 11/07/16 20:00 Nasal Cannula 3.00 11/07/16 20:00 18 11/07/16 19:53 98.6 106 18 134/79 94 11/07/16 19:47 18 11/07/16 16:00 97.6 105 17 139/78 95 11/07/16 14:00 18 11/07/16 13:43 18 11/07/16 12:00 97.5 117 17 152/89 94 I/O 11/07/16 11/07/16 11/07/16 11/08/16 11/08/16 11/08/16 07:00 15:00 23:00 07:00 15:00 23:00 Intake Total 60 ml 0 ml 1799 ml 1069 ml Output Total 525 ml 750 ml 1075 ml 720 ml Balance -465 ml -750 ml 724 ml 349 ml Intake Oral 60 ml 0 ml 320 ml 320 ml IV Total 1479 ml 749 ml Output Urine Total 450 ml 625 ml 1075 ml 700 ml Stool Total 75 ml 75 ml 0 ml 0 ml Drainage Total 50 ml 0 ml 20 ml # Bowel Movements 3 Result Diagram: 11/08/16 0746 11/08/16 0748 Objective Remarks GENERAL: Well-nourished, well-developed pleasant 75 yo male patient. Lean. SKIN: Warm and dry. HEAD: Normocephalic. EYES: No scleral icterus. No injection or drainage. NECK: Supple, trachea midline. No JVD or lymphadenopathy. CARDIOVASCULAR: Regular rate and rhythm without murmurs, gallops, or rubs. RESPIRATORY: Breath sounds equal and clear to auscultation bilaterally. No accessory muscle use. GASTROINTESTINAL: Abdomen soft, diminished BS, Stoma pink with fecal discharge and also gas in it, drain in place, tenderness at the surgical site, dressings c /d/i, nondistended. EXTREMITIES: No cyanosis, or edema. NEUROLOGICAL: Awake, alert, and oriented x 3. Non-focal. A/P Problem List: (1) Sepsis ICD Code: A41.9 Status: Acute (2) Diverticulitis ICD Code: K57.92 Status: Acute (3) Melena ICD Code: K92.1 Status: Resolved (4) Abdominal pain ICD Code: R10.9 Status: Acute (5) Hypokalemia ICD Code: E87.6 Status: Acute (6) Leucocytosis ICD Code: D72.829 Status: Acute (7) Constipation ICD Code: K59.00 Status: Acute (8) Vomiting ICD Code: R11.10 Status: Acute Assessment and Plan Sigmoidal mass. Dr Sigala colorectal surgeon consulted S/P rectosigmoid removal 11/02/[address] Sigala. Pathology pending. Pain control with pain meds wean off BAIT MAKER Antiemetics/lax as need. Diverticulitis- Abdominal/Pelvis CT showed significant diverticulitis in the pelvis, involving the long segment of the colon with no presence of abscess. - leukocytosis worsened after surgery. - Continue IVF. - Continue antibiotics including Cipro and Flagyl -Ileus likely postsurgical. Resolving Vomiting again 11/05. Patient with likely ileus. NPO advanced per surgeon indication. NGT removed 11/07. Monitor lytes and replace. Abx Xray reviewed no signs of obstruction Reglan scheduled. Continue Zofran when necessary. S/P EGD and sigmoidoscopy as above found with sigmoidal mass as above. External hemorrhoids -H&H stable. - Heme and occult stool pos Constipation -resolved continue bowel regimen. Muscle weakness - subjective. Patient ambulating well and independently. Encourage continued ambulation. - CT brain ordered and reviewed: no acute disease Daily marijuana use.Counselled. On marinol at this time, also to increase appetite. Patient was started on marinol on admission because of persistent vomiting, and patient is with daily marijuana use. Moderate malnutrition. Hypokalemia- Received KCL. Monitor lytes and replace as need. Patient also was noted with vomiting/and is on NGT low suction -> might contribute to lyte abn as well. Hypocalcemia: Replaced. Monitor and replace as need PT following DVT Prevention - Sequential compression devices Discharge Planning Home when clinically improved and cleared by consultants. Problem Qualifiers (1) Sepsis: Qualified Code: A41.9 - Sepsis, due to unspecified organism (2) Abdominal pain: Qualified Code: R10.30 - Lower abdominal pain (3) Leucocytosis: Qualified Code: D72.829 - Leukocytosis, unspecified type Olesya Pollack MD Nov 08, 2016 09:16
[2016-11-08] MEDS: CALCIUM CARBONATE 500 MG CHEWABLE TAB CHEW SCH ×2 (10:52→21:04)
[2016-11-08] MEDS: TAMSULOSIN HCL 0.4 MG CAP PO SCH (10:53)
[2016-11-08] MEDS: PANTOPRAZOLE SODIUM 40 MG VIAL IV PUSH SCH (10:53)
[2016-11-08] MEDS: FOLIC ACID 1 MG TAB PO SCH (10:53)
[2016-11-08] MEDS: guaiFENesin E.R. 600 MG TAB PO SCH ×2 (10:53→21:04)
[2016-11-08] MEDS: DRONABINOL 5 MG CAP PO SCH ×2 (10:54→15:46)
[2016-11-08] MEDS: D5-LR + KCL 20 MEQ INJ 1,000 ML IV SCH ×2 (13:16→21:04)
[2016-11-08] MEDS: CIPROFLOXACIN 200 MG PREMIX 100 ML IV SCH (14:18)
[2016-11-08] MEDS: ENOXAPARIN SODIUM 40 MG/0.4 ML SYRINGE SQ SCH (21:04)
[2016-11-09] VITALS: BP 134/71; PULSE 69; RESP 16; TEMP 97.9; O2SAT 97
[2016-11-09] MEDS: CIPROFLOXACIN 200 MG PREMIX 100 ML IV SCH ×2 (00:34→13:00)
[2016-11-09] MEDS: METOCLOPRAMIDE HCL 10 MG/2 ML VIAL IV PUSH SCH ×3 (00:35→13:00)
[2016-11-09] MEDS: metroNIDAZOLE 500 MG INJ 100 ML IV SCH ×2 (04:45→13:00)
[2016-11-09 08:00] VITALS: BP 124/70; PULSE 84; RESP 18; TEMP 97.8; O2SAT 93
[2016-11-09 09:22] VITALS: O2SAT 91
[2016-11-09] MEDS: FOLIC ACID 1 MG TAB PO SCH (09:30)
[2016-11-09] MEDS: CALCIUM CARBONATE 500 MG CHEWABLE TAB CHEW SCH ×2 (09:30→21:32)
[2016-11-09] MEDS: PANTOPRAZOLE SODIUM 40 MG VIAL IV PUSH SCH (09:30)
[2016-11-09] MEDS: guaiFENesin E.R. 600 MG TAB PO SCH ×2 (09:30→21:32)
[2016-11-09] MEDS: TAMSULOSIN HCL 0.4 MG CAP PO SCH (09:30)
[2016-11-09 12:00] VITALS: BP 120/71; PULSE 124; RESP 19; TEMP 96.7; O2SAT 94
[2016-11-09] MEDS: LACTOBACILLUS ACIDOPHILUS TAB PO SCH ×2 (13:00→17:32)
[2016-11-09] MEDS: D5-LR + KCL 20 MEQ INJ 1,000 ML IV SCH (14:31)
[2016-11-09 16:00] VITALS: BP 106/71; PULSE 115; RESP 20; TEMP 97.3; O2SAT 97
--- NOTE | 2016-11-09 16:16 | HHI.PR ---
Subjective Remarks Patient states he is not having any abdominal pain. He has been tolerating regular diet without nausea or vomiting. He was able to ambulate a small amount today. He feels much improved and is in good spirits. Objective Vitals Vital Signs Date Time Temp Pulse Resp B/P Pulse Ox O2 Delivery O2 Flow Rate FiO2 11/09/16 12:00 96.7 124 19 120/71 94 11/09/16 09:30 Nasal Cannula 2.00 21 11/09/16 09:22 91 Nasal Cannula 2.50 11/09/16 08:00 97.8 84 18 124/70 93 11/09/16 00:00 97.9 69 16 134/71 97 11/08/16 20:00 97.5 113 16 132/83 94 11/08/16 19:45 Nasal Cannula 2.00 21 11/08/16 18:30 Nasal Cannula 2.00 I/O 11/08/16 11/08/16 11/08/16 11/09/16 11/09/16 11/09/16 07:00 15:00 23:00 07:00 15:00 23:00 Intake Total 1069 ml 1435 ml 360 ml 120 ml 1529 ml Output Total 720 ml 525 ml 200 ml 480 ml 110 ml Balance 349 ml 910 ml 160 ml -360 ml 1419 ml Intake Oral 320 ml 600 ml 360 ml 120 ml IV Total 749 ml 835 ml 1529 ml Output Urine Total 700 ml 450 ml 200 ml 450 ml Stool Total 0 ml 75 ml 0 ml 100 ml Drainage Total 20 ml 30 ml 10 ml # Bowel Movements 3 0 Result Diagram: 11/08/16 0746 11/08/16 0748 Objective Remarks GENERAL: Well-nourished, well-developed pleasant male patient. Long chavira. Lean. SKIN: Warm and dry. HEAD: Normocephalic. EYES: No scleral icterus. No injection or drainage. NECK: Supple, trachea midline. No JVD or lymphadenopathy. CARDIOVASCULAR: Regular rate and rhythm without murmurs, gallops, or rubs. RESPIRATORY: Breath sounds equal and clear to auscultation bilaterally. No accessory muscle use. GASTROINTESTINAL: Bowel sounds present. The patient has a midline longitudinal incision clean dry intact with candido and an ostomy EXTREMITIES: No cyanosis, or edema. NEUROLOGICAL: Awake, alert, and oriented x 3. Non-focal. Procedures Flexible sigmoidoscopy 11/02/16 11/02/16 exploratory laparotomy with proctosigmoidectomy, low pelvic anastomosis and diverting ileostomy by Dr. Sigala. Pathology showed diverticulosis, focal diverticulitis and multiple foci of pericolonic abscesses. 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 Sigala. Pathology showed diverticulosis , focal diverticulitis and multiple foci of pericolonic abscesses. Patient doing well, tolerating regular diet. Leukocytosis resolved. Continue Flagyl and Cipro, change to by mouth route. DC IV fluids. Continue ambulation. Diverticulitis- improved. Continue antibiotics include Cipro and Flagyl. External hemorrhoids -H&H stable. - Heme and occult stool negative Daily marijuana use. Moderate malnutrition. Continue encourage by mouth. DVT Prevention - Sequential compression devices Discharge Planning Home with home health clear when cleared per rectal surgery. Problem Qualifiers (1) Sepsis: Qualified Code: A41.9 - Sepsis, due to unspecified organism (2) Abdominal pain: Qualified Code: R10.30 - Lower abdominal pain (3) Leucocytosis: Qualified Code: D72.829 - Leukocytosis, unspecified type Shruti Peck MD Nov 09, 2016 16:15 Shruti Peck MD Nov 09, 2016 16:15
[2016-11-09 20:00] VITALS: BP 115/66; PULSE 118; RESP 18; TEMP 98.1; O2SAT 96
[2016-11-09] MEDS: ENOXAPARIN SODIUM 40 MG/0.4 ML SYRINGE SQ SCH (21:32)
[2016-11-09] MEDS: CIPROFLOXACIN 250 MG TAB PO SCH (21:32)
[2016-11-09] MEDS: metroNIDAZOLE 500 MG TAB PO SCH (21:32)
--- NOTE | 2016-11-09 22:16 | HHI.PR ---
Subjective Remarks C/R Surg POD # 6 afebrile, VSS UO good drain dc'd jasmine PO Objective - Vital Signs Date Time Temp Pulse Resp B/P Pulse Ox O2 Delivery O2 Flow Rate FiO2 11/09/16 20:00 98.1 118 18 115/66 96 11/09/16 19:30 Room Air 11/09/16 09:30 2.00 21 Result Diagram: 11/08/16 0746 11/08/16 0748 Objective Remarks PE alert Abd - soft, wound dry, stoma pink - functioning A/P Assessment and Plan Imp: OOB resp rx decr IVF adv diet dc plans Ubaldo Sigala MD Nov 09, 2016 22:16
[2016-11-10] VITALS: BP 131/81; PULSE 116; RESP 16; TEMP 98.1; O2SAT 94
[2016-11-10] MEDS: metroNIDAZOLE 500 MG TAB PO SCH (04:09)
[2016-11-10 08:00] VITALS: BP 141/71; PULSE 105; RESP 20; TEMP 98.6; O2SAT 92
[2016-11-10] MEDS: CIPROFLOXACIN 250 MG TAB PO SCH (09:41)
[2016-11-10] MEDS: PANTOPRAZOLE SODIUM 40 MG VIAL IV PUSH SCH (09:41)
[2016-11-10] MEDS: LACTOBACILLUS ACIDOPHILUS TAB PO SCH (09:41)
[2016-11-10] MEDS: TAMSULOSIN HCL 0.4 MG CAP PO SCH (09:41)
[2016-11-10] MEDS: FOLIC ACID 1 MG TAB PO SCH (09:41)
[2016-11-10] MEDS: CALCIUM CARBONATE 500 MG CHEWABLE TAB CHEW SCH (09:41)
[2016-11-10] MEDS: guaiFENesin E.R. 600 MG TAB PO SCH (09:41)
--- NOTE | 2016-11-10 10:03 | HHI.DS ---
Discharge Summary Admission Date Oct 25, 2016 at 14:09 Admitting Diagnosis Diverticulitis (1) Sepsis ICD Code: A41.9 (2) Diverticulitis ICD Code: K57.92 (3) Melena ICD Code: K92.1 (4) Abdominal pain ICD Code: R10.9 (5) Hypokalemia ICD Code: E87.6 (6) Leucocytosis ICD Code: D72.829 (7) Constipation ICD Code: K59.00 (8) Vomiting ICD Code: R11.10 Procedures Flexible sigmoidoscopy 11/02/16 11/02/16 exploratory laparotomy with proctosigmoidectomy, low pelvic anastomosis and diverting ileostomy by Dr. Sigala. Pathology showed diverticulosis, focal diverticulitis and multiple foci of pericolonic abscesses. Brief History - From Admission Mr. Moreno is a 75-year-old male with known history of CHF, external hemorrhoids, hx of right inguinal hernia repair who presents to the ED with complaints of ongoing constipation for the past two weeks with 'the feeling of never fully defecating'. During that time, he admits to the presence of blood and pus in stool. Patient also reports severe pain that began upon awakening this am which occurs mostly in the groin and lower abdominal area. He does admit to occasional fever and diaphoretic episodes, but upon presentation he is afebrile. Denies taking anything for constipation or any pain medication, but does admit to daily marijuana use 'for pain and heart control'. Abdominal/ Pelvis CT reveals significant diverticulitis in the pelvis, involving the long segment of the colon with no presence of abscess. Patient denies following a process control specialist or ever having an EGD or colonoscopy in the past. Denies nausea, vomiting, chest pain, decreased appetite or shortness of breath. CBC/BMP: 11/08/16 0746 11/08/16 0748 Significant Findings Laboratory Tests Test 11/08/16 11/08/16 07:46 07:48 Red Blood Count 4.36 MIL/MM3 (4.50-5.90) Hemoglobin 12.4 GM/DL (13.0-17.0) Hematocrit 36.6 % (39.0-51.0) Neutrophils (%) (Auto) 78.0 % (16.0-70.0) Neutrophils # (Auto) 8.5 TH/MM3 (1.8-7.7) Blood Urea Nitrogen 2 MG/DL (7-18) Creatinine 0.43 MG/DL (0.60-1.30) Random Glucose 132 MG/DL (74-106) Calcium Level 7.9 MG/DL (8.5-10.1) PE at Discharge GENERAL: Well-nourished, well-developed pleasant male patient. Long chavira. Lean. SKIN: Warm and dry. HEAD: Normocephalic. EYES: No scleral icterus. No injection or drainage. NECK: Supple, trachea midline. No JVD or lymphadenopathy. CARDIOVASCULAR: Regular rate and rhythm without murmurs, gallops, or rubs. RESPIRATORY: Breath sounds equal and clear to auscultation bilaterally. No accessory muscle use. GASTROINTESTINAL: Bowel sounds present. The patient has a midline longitudinal incision clean dry intact with candido and an ostomy EXTREMITIES: No cyanosis, or edema. NEUROLOGICAL: Awake, alert, and oriented x 3. Non-focal. Pt Condition on Discharge: Stable Discharge Disposition: Disch w/ Home Health Serv Discharge Instructions DIET: Follow Instructions for: Heart Healthy Diet Activities you can perform: Regular-No Restrictions Shruti Peck MD Nov 10, 2016 10:03
--- NOTE | 2016-11-10 10:19 | HHI.DS ---
Discharge Summary Admission Date Oct 25, 2016 at 14:09 Discharge Date: Nov 10, 2016 Admitting Diagnosis Diverticulitis (1) Sepsis ICD Code: A41.9 (2) Diverticulitis ICD Code: K57.92 (3) Melena ICD Code: K92.1 (4) Abdominal pain ICD Code: R10.9 (5) Hypokalemia ICD Code: E87.6 (6) Leucocytosis ICD Code: D72.829 (7) Constipation ICD Code: K59.00 (8) Vomiting ICD Code: R11.10 (9) Colonic obstruction ICD Code: K56.60 Procedures Flexible sigmoidoscopy 11/02/16 11/02/16 exploratory laparotomy with proctosigmoidectomy, low pelvic anastomosis and diverting ileostomy by Dr. Sigala. Pathology showed diverticulosis, focal diverticulitis and multiple foci of pericolonic abscesses. Brief History - From Admission Mr. Moreno is a 75-year-old male with known history of CHF, external hemorrhoids, hx of right inguinal hernia repair who presents to the ED with complaints of ongoing constipation for the past two weeks with 'the feeling of never fully defecating'. During that time, he admits to the presence of blood and pus in stool. Patient also reports severe pain that began upon awakening this am which occurs mostly in the groin and lower abdominal area. He does admit to occasional fever and diaphoretic episodes, but upon presentation he is afebrile. Denies taking anything for constipation or any pain medication, but does admit to daily marijuana use 'for pain and heart control'. Abdominal/ Pelvis CT reveals significant diverticulitis in the pelvis, involving the long segment of the colon with no presence of abscess. Patient denies following a automobile drivers or ever having an EGD or colonoscopy in the past. Denies nausea, vomiting, chest pain, decreased appetite or shortness of breath. CBC/BMP: 11/08/16 0746 11/08/16 0748 Significant Findings Laboratory Tests Test 11/08/16 11/08/16 07:46 07:48 Red Blood Count 4.36 MIL/MM3 (4.50-5.90) Hemoglobin 12.4 GM/DL (13.0-17.0) Hematocrit 36.6 % (39.0-51.0) Neutrophils (%) (Auto) 78.0 % (16.0-70.0) Neutrophils # (Auto) 8.5 TH/MM3 (1.8-7.7) Blood Urea Nitrogen 2 MG/DL (7-18) Creatinine 0.43 MG/DL (0.60-1.30) Random Glucose 132 MG/DL (74-106) Calcium Level 7.9 MG/DL (8.5-10.1) Imaging Last Impressions Abdomen X-Ray 11/05/16 0000 Signed Impressions: Service Date/Time: Saturday, November 05, 2016 09:18 - CONCLUSION: Postsurgical changes with new ostomy and no current evidence of bowel obstruction. Deanna Singh MD Abdomen/Pelvis CT 11/01/16 0000 Signed Impressions: Service Date/Time: Tuesday, November 01, 2016 13:27 - CONCLUSION: 1. There is gaseous and fluid distention of the colon down to the distal sigmoid. The cecum measures 9 cm in transverse dimension. There is an area of abnormal, thickened colon with only minimal inflammatory change. Primary consideration for this would be a colitis involving the distal sigmoid and rectum versus malignancy. 2. There is a small amount of free fluid within the pelvis. 3. Left inguinal hernia. Curt Jack MD Head CT 10/28/16 0000 Signed Impressions: Service Date/Time: Friday, October 28, 2016 08:56 - CONCLUSION: No acute disease. Jered Jack MD FACR PE at Discharge GENERAL: Well-nourished, well-developed pleasant male patient. Long chavira. Lean. SKIN: Warm and dry. HEAD: Normocephalic. EYES: No scleral icterus. No injection or drainage. NECK: Supple, trachea midline. No JVD or lymphadenopathy. CARDIOVASCULAR: Regular rate and rhythm without murmurs, gallops, or rubs. RESPIRATORY: Breath sounds equal and clear to auscultation bilaterally. No accessory muscle use. GASTROINTESTINAL: Bowel sounds present. The patient has a midline longitudinal incision clean dry intact with candido and an ostomy EXTREMITIES: No cyanosis, or edema. NEUROLOGICAL: Awake, alert, and oriented x 3. Non-focal. Hospital Course Patient was treated for diverticulitis with clinical improvement initially. However the event started to develop persistent vomiting. Gastroenterology was re-consulted. Ultimately abdominal CAT scan showed colonic obstruction with the cecum measuring 9 cm with a section of abnormal thickened colon which may been colitis versus malignancy. The patient underwent surgery above with Dr. Sigala, pathology was negative for mass and showed diverticulitis. The patient has clinically improved and is ambulatory. However he remained somewhat weak with poor social support. [facility]. I discussed the patient with Dr. Sigala. Patient to follow-up with him for incision check as below. Pt Condition on Discharge: Stable Discharge Disposition: Discharge to SNF Discharge Time: > 30 minutes Discharge Instructions DIET: Follow Instructions for: Heart Healthy Diet Activities you can perform: Regular-No Restrictions Follow up Referrals: Colorectal Surgery - 1 Week with Ubaldo Sigala MD PCP Follow-up - 11/08/16 with lucy New Medications: Ciprofloxacin (Ciprofloxacin) 500 Mg Tab 500 MG PO BID Infection #16 Ref 0 TAB Docusate Sodium (Colace) 100 Mg Cap 100 MG PO BID Constipation #60 Ref 0 CAP Hydrocodone-Acetaminophen ([place]) 5-325 mg Tab 1 TAB PO Q6H PRN PAIN #20 Ref 0 TAB Metronidazole (Flagyl) 500 Mg Tab 500 MG PO TID Infection #24 Ref 0 TAB Folic Acid (Folate) 1 Mg Tab 1 MG PO DAILY mvt #30 TAB Tamsulosin (Flomax) 0.4 Mg Cap 0.4 MG PO DAILY BPH #30 CAP Continued Medications: Fish Oil-Cholecalciferol (Fish Oil + D3) 1,200-1,000 Mg-Unit Cap 1 CAP PO DAILY Nutritional Supplement #30 Ref 0 CAP Loratadine (Claritin) 10 Mg Tab 10 MG PO DAILY Allergy Management Ref 0 TAB Shruti Peck MD Nov 10, 2016 10:19
[2016-11-10 12:00] VITALS: BP 121/73; PULSE 122; RESP 22; TEMP 97.7; O2SAT 93
== END 2016-11-10 13:32 | DRG 854 ==
LOC: PHED 10:55 → INTOOBSV 13:46 → PHEDA 13:46 → OBSVTOIN 14:09 → PHEDH 17:45 → PH3B 21:42 → HCIS 11-02 10:27 → N07B 11-04 22:34
PROVIDERS: ADMIT Family Medicine; ATTEND Family Medicine
PROC: 0D1B0Z4 Bypass Ileum to Cutaneous, Open Approach (ICD-10-PCS; 2016-11-02)
PROC: 0DBN8ZX Excision of Sigmoid Colon, Via Natural or Artificial Opening Endoscopic, Diagnostic (ICD-10-PCS; 2016-11-02)
PROC: 0DB98ZX Excision of Duodenum, Via Natural or Artificial Opening Endoscopic, Diagnostic (ICD-10-PCS; 2016-11-02)
PROC: 0DB68ZX Excision of Stomach, Via Natural or Artificial Opening Endoscopic, Diagnostic (ICD-10-PCS; 2016-11-02)
PROC: 0DB38ZX Excision of Lower Esophagus, Via Natural or Artificial Opening Endoscopic, Diagnostic (ICD-10-PCS; 2016-11-02)
PROC: 0DTP0ZZ Resection of Rectum, Open Approach (ICD-10-PCS; principal; 2016-11-02 07:00)
PROC: 0DTN0ZZ Resection of Sigmoid Colon, Open Approach (ICD-10-PCS; 2016-11-02 07:00)
DX: A41.9 Sepsis, unspecified organism (principal); K57.20 Diverticulitis of large intestine with perforation and abscess without bleeding; E44.0 Moderate protein-calorie malnutrition; I50.9 Heart failure, unspecified; K56.7 Ileus, unspecified; E83.51 Hypocalcemia; K92.1 Melena; K59.00 Constipation, unspecified; K64.4 Residual hemorrhoidal skin tags; E87.6 Hypokalemia; K40.90 Unilateral inguinal hernia, without obstruction or gangrene, not specified as recurrent; K20.9 Esophagitis, unspecified; F12.288 Cannabis dependence with other cannabis-induced disorder; Z68.20 Body mass index [BMI] 20.0-20.9, adult; Z88.5 Allergy status to narcotic agent; Z91.040 Latex allergy status
CPT/HCPCS: 70450; 74020; 74177; 76937; 80048; 80053; 80076; 81001; 82272; 82378; 83690; 83735; 84100; 84132; 84155; 85025; 85610; 85730; 88305; 88307; 88312; 93005; 94150; 96361; 96374; 96375; C9113; G0378; J0131; J0610; J0744; J1650; J2250; J2270; J2370; J2405; J2710; J2765; J3010; J3480; J7030; J7040; J7050; J7120; Q9963; Q9967

== ENCOUNTER 2017-01-15 13:09 | Inpatient (IN) | payer MEDICARE, MEDICAID ==
[~2017-01-15] VITALS: Ht 167.6 cm; Wt 54.5 kg
[~2017-01-15 13:09] MED LIST changes: -CIPR500T2 PO; -CLAR10CA3 PO; -COLA100C3 PO; -FOLI1TAB4 PO; -FOLI1TAB6 PO; -LORA-361 PO; -METR-1 PO; -NORC5TAB PO; -TAMS5CAP PO; -VITA-136 PO
[2017-01-16] MEDS ORDERED: CLAR10CA3 PO (08:55)
[2017-01-16] MEDS ORDERED: FOLI1TAB6 PO (08:55)
[2017-01-16] MEDS ORDERED: VITA-136 PO (08:55)
[2017-01-22] MEDS ORDERED: POVIDONE IODINE 5% (ANTISEPSIS KIT) 4 APPLICATIONS EACH NARE PRN (12:15)
[2017-01-22] MEDS ORDERED: METOPROLOL TARTRATE 25 MG TAB PO PRN (12:15)
[2017-01-22] MEDS ORDERED: SODIUM CHLORID 0.9% 500 ML IV PRN (12:15)
[2017-01-22] MEDS ORDERED: INSULIN HUMAN REGULAR 1,000 UNITS/10 ML VIAL SQ PRN (12:15)
[2017-01-22] MEDS ORDERED: LACTATED RINGER'S 1000 ML IV PRN (12:15)
[2017-01-22] MEDS ORDERED: CHLORHEXIDINE GLUCONATE 2 % 1 PACK (2 CLOTHS) TOPICAL PRN (12:15)
[2017-01-22] MEDS ORDERED: LACTATED RINGER'S 1000 ML INJ 1,000 ML IV ONE (12:28)
[2017-01-22] MEDS ORDERED: PROPOFOL 200 MG/20 ML AMP IV ONE (12:28)
[2017-01-22] MEDS ORDERED: ONDANSETRON HCL 4 MG/2 ML VIAL IV PUSH ONE (12:28)
[2017-01-22] MEDS ORDERED: NORMOSOL R INJ 1,000 ML IV ONE (12:29)
[2017-01-22] MEDS ORDERED: DEXT 5%-NACL 0.9% 1000 ML INJ 1,000 ML IV SCH (12:30)
[2017-01-22] MEDS ORDERED: ceFAZolin 1,000 MG/NS 100 ML IV SCH ×2 (12:30)
[2017-01-22] MEDS ORDERED: ALVIMOPAN 12 MG CAPSULE - On Call PO SCH (12:30)
[2017-01-22] MEDS ORDERED: METRONIDAZOLE 500 MG/100 ML ISONTONIC SOLN IV SCH (12:30)
[2017-01-22 13:02] VITALS: BP 138/87; PULSE 82; RESP 18; TEMP 98.7; O2SAT 94
[2017-01-22] MEDS ORDERED: fentaNYL CITRATE 250 MCG/5 ML AMP ONE (13:16)
[2017-01-22] MEDS ORDERED: SUGAMMADEX SODIUM 200 MG/2 ML VIAL IV PUSH ONE ×2 (13:16)
[2017-01-22] MEDS ORDERED: HYDROmorphone HCL PF 2 MG/ML VIAL ONE (13:16)
--- NOTE | 2017-01-22 13:58 | PD.HP.UP ---
H&P Update Note The Pre-Admit History and Physical Examination regarding the above named patient was reviewed (including, but not limited to, vital signs, heart, lungs, co-morbid conditions), and upon re-examination it is noted that: the patient's condition has not significantly changed since the last examination. Ubaldo Sigala MD Jan 22, 2017 13:58
[2017-01-22] MEDS ORDERED: MIDAZOLAM HCL 2 MG/2 ML VIAL ONE (14:19)
[2017-01-22] MEDS ORDERED: FAMOTIDINE 20 MG/2 ML VIAL ONE (14:19)
[2017-01-22] MEDS ORDERED: ACETAMINOPHEN 1000 MG/100 ML VIAL IV ONE (14:19)
[2017-01-22] MEDS ORDERED: ENALAPRILAT 1.25 MG/ML VIAL IV PRN (15:45)
[2017-01-22] MEDS ORDERED: POTASSIUM CHLOR 20 MEQ PREMIX 100 ML IV PRN (15:45)
[2017-01-22] MEDS ORDERED: ACETAMINOPHEN 325 MG TAB PO PRN (15:45)
[2017-01-22] MEDS ORDERED: SODIUM CHLORIDE 0.9% FLUSH 5 ML FLUSH IVF PRN (15:45)
[2017-01-22] MEDS ORDERED: BENZOCAINE 6 MG/MENTHOL 10 MG LOZENGE BUCCAL PRN (15:45)
[2017-01-22] MEDS ORDERED: Post-op Orders (for Pharmacy) MISC XX ONE (15:45)
[2017-01-22] MEDS ORDERED: POTASSIUM CHLOR 40 MEQ PREMIX 100 ML IV PRN (15:45)
[2017-01-22] MEDS ORDERED: NALOXONE HCL 0.4 MG/ML AMP IV PRN (15:45)
[2017-01-22] MEDS ORDERED: KETOROLAC TROMETHAMINE 30 MG/ML (IVP) VIAL IVP PRN (15:45)
[2017-01-22] MEDS ORDERED: ACETAMINOPHEN/HYDROcodone 325 MG/5 MG TAB PO PRN ×2 (15:45)
[2017-01-22] MEDS ORDERED: ENALAPRILAT 2.5 MG/2 ML VIAL IV PRN (15:45)
--- NOTE | 2017-01-22 15:45 | HHI.PR ---
Immediate Post Op Note Procedure Date: Jan 22, 2017 Pre Op Diagnosis: Hx diverticulitis Post Op Diagnosis: same Surgeon: Ubaldo Sigala Pressure Controller(s): none Procedure: Exploratory Laparotomy, SBR Findings: adhesions Complications: none Specimen(s) removed: SB stoma Anesthesia: General Drains: None IVF Patient to: Ubaldo Romano MD Jan 22, 2017 15:45
[2017-01-22] MEDS: D5-NS + KCL 20 MEQ INJ 1,000 ML IV SCH (16:00)
[2017-01-22] MEDS ORDERED: DO NOT ADM ANY ANTICOAGULANT DRUGS PRN (16:45)
[2017-01-22 16:49] VITALS: BP 138/75; PULSE 82; RESP 20; TEMP 96.1; O2SAT 98
[2017-01-22] MEDS ORDERED: MORPHINE SULFATE 30 MG/30 ML PCA IV SCH (18:00)
[2017-01-22 18:30] VITALS: O2SAT 98
[2017-01-22 19:45] VITALS: BP 117/66; PULSE 74; RESP 18; TEMP 97.7; O2SAT 96
[2017-01-22] MEDS: SODIUM CHLORIDE 0.9% FLUSH 5 ML FLUSH IVF SCH (21:00)
[2017-01-22] MEDS: PCA - TOTAL MG MORPHINE DELIVERED PER SHIFT SCH (22:00)
[2017-01-22] MEDS: METOCLOPRAMIDE HCL 10 MG/2 ML VIAL IVS SCH (22:44)
[2017-01-22] MEDS: metroNIDAZOLE 500 MG INJ 100 ML IV SCH (23:21)
[2017-01-22 23:45] VITALS: BP 116/62; PULSE 77; RESP 18; TEMP 96.8; O2SAT 96
[2017-01-23] VITALS (7 sets, daily range): BP systolic 116–134; BP diastolic 59–73; PULSE 76–85; RESP 18–20; TEMP 97.5–99.4; O2SAT 93–97
[2017-01-23] MEDS: D5-NS + KCL 20 MEQ INJ 1,000 ML IV SCH ×2 (01:28→08:01)
[2017-01-23] MEDS: ONDANSETRON HCL 4 MG/2 ML VIAL IV PRN ×2 (03:22→15:04)
[2017-01-23] MEDS: metroNIDAZOLE 500 MG INJ 100 ML IV SCH ×2 (05:39→14:00)
[2017-01-23] MEDS: PCA - TOTAL MG MORPHINE DELIVERED PER SHIFT SCH ×2 (06:00→14:00)
[2017-01-23 07:14] LABS: AUTOMATED NEUTROPHIL # 8.4 TH/MM3 (1.8-7.7); BASOPHIL % 0.2 % (0.0-2.0); EOSINOPHIL % 0.1 % (0.0-4.0); HEMATOCRIT 40.6 % (39.0-51.0); HEMO FLAGS DIFF FINAL; LYMPH % 10.1 % (9.0-44.0); MEAN CELL VOLUME 87.5 FL (80.0-100.0); MEAN CORPUSCULAR HEMOGLOBIN 29.4 PG (27.0-34.0); MEAN CORPUSCULAR HGB CONC 33.6 % (32.0-36.0); MONO % 6.5 % (0.0-8.0); NEUT % 83.1 % (16.0-70.0); PLATELET COUNT 290 TH/MM3 (150-450); RED BLOOD COUNT 4.64 MIL/MM3 (4.50-5.90); RED CELL DISTRIBUTION WIDTH 15.8 % (11.6-17.2); WHITE BLOOD COUNT 10.2 TH/MM3 (4.0-11.0)
[2017-01-23 07:41] LABS: BICARBONATE 27.6 MEQ/L (21.0-32.0); POTASSIUM 3.7 MEQ/L (3.5-5.1)
[2017-01-23] MEDS: PANTOPRAZOLE SOD 40 MG DELAYED RELEASE TAB PO SCH (08:00)
[2017-01-23] MEDS: ALVIMOPAN 12 MG CAPSULE - Post-op dosing PO SCH ×2 (08:00→21:06)
[2017-01-23] MEDS: PANTOPRAZOLE SODIUM 40 MG VIAL IVP SCH (08:01)
[2017-01-23] MEDS: METOCLOPRAMIDE HCL 10 MG/2 ML VIAL IVS SCH ×2 (08:01→21:06)
[2017-01-23] MEDS: SODIUM CHLORIDE 0.9% FLUSH 5 ML FLUSH IVF SCH ×2 (08:02→21:00)
--- NOTE | 2017-01-23 18:58 | HHI.PR ---
Subjective Remarks C/R Surg POD # 1 afebrile, VSS UO good - young dc'd jasmine PO Objective - Vital Signs Date Time Temp Pulse Resp B/P Pulse Ox O2 Delivery O2 Flow Rate FiO2 01/23/17 17:57 98.1 76 18 134/64 96 01/22/17 18:30 Nasal Cannula 2.00 Result Diagram: 01/23/17 0615 01/23/17 0615 Objective Remarks PE alert Abd - soft, wound dry, min tympany A/P Assessment and Plan Imp: stable post-op OOB decr IVF adv PO Ubaldo Sigala MD Jan 23, 2017 18:58
[2017-01-23] MEDS ORDERED: ALVIMOPAN 12 MG CAPSULE PO SCH (21:00)
[2017-01-24] VITALS (7 sets, daily range): BP systolic 115–159; BP diastolic 61–85; PULSE 83–98; RESP 18–19; TEMP 97.8–100.3; O2SAT 93–95
[2017-01-24] MEDS: D5-NS + KCL 20 MEQ INJ 1,000 ML IV SCH ×3 (02:01→13:52)
[2017-01-24 06:06] LABS: AUTOMATED NEUTROPHIL # 8.8 TH/MM3 (1.8-7.7); BASOPHIL % 0.3 % (0.0-2.0); EOSINOPHIL % 0.4 % (0.0-4.0); HEMATOCRIT 39.2 % (39.0-51.0); HEMO FLAGS DIFF FINAL; LYMPH % 14.9 % (9.0-44.0); LYMPHOCYTE # 1.7 TH/MM3 (1.0-4.8); MEAN CORPUSCULAR HGB CONC 33.4 % (32.0-36.0); MONO % 8.5 % (0.0-8.0); NEUT % 75.9 % (16.0-70.0); PLATELET COUNT 290 TH/MM3 (150-450); RED CELL DISTRIBUTION WIDTH 15.4 % (11.6-17.2); WHITE BLOOD COUNT 11.6 TH/MM3 (4.0-11.0)
[2017-01-24 06:31] LABS: BICARBONATE 27.8 MEQ/L (21.0-32.0)
[2017-01-24] MEDS: ALVIMOPAN 12 MG CAPSULE - Post-op dosing PO SCH ×2 (08:52→20:58)
[2017-01-24] MEDS: PANTOPRAZOLE SOD 40 MG DELAYED RELEASE TAB PO SCH (08:52)
[2017-01-24] MEDS: SODIUM CHLORIDE 0.9% FLUSH 5 ML FLUSH IVF SCH ×2 (08:53→20:57)
[2017-01-24] MEDS: METOCLOPRAMIDE HCL 10 MG/2 ML VIAL IVS SCH (08:53)
[2017-01-24] MEDS: PANTOPRAZOLE SODIUM 40 MG VIAL IVP SCH (08:53)
--- NOTE | 2017-01-24 16:14 | HHI.PR ---
Subjective Remarks C/R Surg POD # 2 afebrile, VSS UO good jasmine PO +flatus Objective - Vital Signs Date Time Temp Pulse Resp B/P Pulse Ox O2 Delivery O2 Flow Rate FiO2 01/24/17 12:03 93 01/24/17 12:00 97.9 96 18 120/61 01/22/17 18:30 Nasal Cannula 2.00 Result Diagram: 01/24/17 0533 01/24/17 0533 Objective Remarks PE alert Abd - soft, wound dry, min tympany A/P Assessment and Plan Imp: OOB decr IVF adv PO dc plans Ubaldo Sigala MD Jan 24, 2017 16:14
[2017-01-24] MEDS ORDERED: METOCLOPRAMIDE HCL 10 MG/2 ML VIAL IVS PRN (16:15)
[2017-01-24] MEDS: ONDANSETRON HCL 4 MG/2 ML VIAL IV PRN (21:01)
[2017-01-25] VITALS: BP 137/80; PULSE 91; RESP 19; TEMP 97.4; O2SAT 94
[2017-01-25 08:00] VITALS: BP 110/60; PULSE 88; RESP 17; TEMP 98.1; O2SAT 94
[2017-01-25] MEDS: PANTOPRAZOLE SOD 40 MG DELAYED RELEASE TAB PO SCH (08:58)
[2017-01-25] MEDS: PANTOPRAZOLE SODIUM 40 MG VIAL IVP SCH (08:58)
[2017-01-25] MEDS: ALVIMOPAN 12 MG CAPSULE - Post-op dosing PO SCH (08:58)
[2017-01-25] MEDS: SODIUM CHLORIDE 0.9% FLUSH 5 ML FLUSH IVF SCH (08:59)
--- NOTE | 2017-01-25 11:23 | MP ---
cc: LEONIDES MENDEZ M.D. DATE OF SURGERY 01/22/2017 PREOPERATIVE DIAGNOSIS History of diverticulitis, attention to ileostomy PROCEDURE Exploratory laparotomy with segmental small bowel resection and closure of ileostomy. POSTOPERATIVE DIAGNOSIS History of diverticulitis, attention to ileostomy SURGEON Dr. Mendez PROCEDURE The patient was placed in the supine position. After adequate general anesthesia, his abdomen was prepped with Betadine solution and draped in the usual sterile fashion. Elliptical incision was made over the ileostomy and the proximal and distal limbs were dissected free from the subcutaneous tissues. The bowel mobilized up into the wounds and the fascial attachments released. Adhesions to the parietal peritoneum were also taken down. Avascular plane was then created from the proximal distal limbs in the mesentery dividing the distal limb between Kochers, the proximal limb using a BRITT stapling device. The intervening mesentery taken between Mary's obtaining hemostasis with Vicryl ties. Bowel continuity was then restored by firing the BRITT stapler across the antimesenteric ends of the bowel closing the enterotomy with a TA-60 stapler. The mesenteric defect closed with one Vicryl suture and a 3-0 Vicryl crotch suture was placed as well. Bowel returned to the abdominal cavity. The abdominal incision was then closed anatomically in two layers using #1 PDS sutures to reapproximate the respective fascial layers. The subcu tissues irrigated copiously and the skin closed with some deep Vicryl sutures for the subcu and then a running subcuticular suture for the skin layer. The wound area washed with normal saline and dried. A sterile dressing of Telfa and gauze applied. The patient tolerated the procedure quite well and brought to recovery room in stable condition. MD SHERRY Brown/DAI /9:45 PM /11:25 AM
[2017-01-25 11:29] VITALS: O2SAT 92
[2017-01-25 12:00] VITALS: BP 130/78; PULSE 83; RESP 17; TEMP 98.7; O2SAT 92
[2017-01-25] MEDS: D5-NS + KCL 20 MEQ INJ 1,000 ML IV SCH (14:35)
[2017-01-25 16:00] VITALS: BP 145/87; PULSE 105; RESP 17; TEMP 98.9; O2SAT 95
[2017-01-25] MEDS: ONDANSETRON HCL 4 MG/2 ML VIAL IV PRN (17:55)
--- NOTE | 2017-01-25 19:20 | HHI.PR ---
Subjective Remarks C/R Surg POD # 3 afebrile, VSS UO good jasmine PO +flatus/BM Objective - Vital Signs Date Time Temp Pulse Resp B/P Pulse Ox O2 Delivery O2 Flow Rate FiO2 01/25/17 16:00 98.9 105 17 145/87 95 01/25/17 11:29 21 01/22/17 18:30 Nasal Cannula 2.00 Result Diagram: 01/24/17 0533 01/24/17 0533 Objective Remarks PE alert Abd - soft, wound dry, min tympany A/P Assessment and Plan Imp: OOB decr IVF adv PO dc plans - rto 1 week Ubaldo Sigala MD Jan 25, 2017 19:19
== END 2017-01-25 19:58 | disposition home or self-care (01) | DRG 331 ==
LOC: HSDI 01-22 11:46 → N07B 01-22 16:35
PROVIDERS: ADMIT Colon & Rectal Surgery; ATTEND Colon & Rectal Surgery
PROC: 0DQB0ZZ Repair Ileum, Open Approach (ICD-10-PCS; principal; 2017-01-22 14:30)
DX: Z43.2 Encounter for attention to ileostomy (principal); I50.9 Heart failure, unspecified; I25.2 Old myocardial infarction; K66.0 Peritoneal adhesions (postprocedural) (postinfection); Z87.891 Personal history of nicotine dependence
CPT/HCPCS: 80048; 85025; 86850; 86900; 86901; 94150; J0131; J0690; J1170; J2250; J2270; J2405; J2765; J3010; J3480; J7120

== ENCOUNTER → 2017-01-15 | Outpatient (CLI) | payer MEDICARE, MEDICAID ==
[~2017-01-15] MED LIST: CIPR500T2 PO; CLAR10CA3 PO; COLA100C3 PO; FISHCAP4 PO; FOLI1TAB4 PO; FOLI1TAB6 PO; LORA-361 PO; METR-1 PO; NORC5TAB PO; TAMS5CAP PO; VITA-136 PO
[2017-01-15 14:39] LABS: HDL CHOLESTEROL 55.3 MG/DL (40.0-60.0)
== END ==
LOC: CLAB 13:13
PROVIDERS: ATTEND Family Medicine
DX: E87.6 Hypokalemia (principal); E78.5 Hyperlipidemia, unspecified; I25.2 Old myocardial infarction; I50.40 Unspecified combined systolic (congestive) and diastolic (congestive) heart failure; R53.83 Other fatigue; Z12.11 Encounter for screening for malignant neoplasm of colon
CPT/HCPCS: 80061; 84443

== ENCOUNTER → 2017-01-15 | Outpatient (CLI) | payer MEDICARE, MEDICAID ==
[2017-01-15 14:00] LABS: AUTOMATED NEUTROPHIL # 5.1 TH/MM3 (1.8-7.7); BASOPHIL % 0.6 % (0.0-2.0); EOSINOPHIL # 0.1 TH/MM3 (0-0.4); EOSINOPHIL % 1.2 % (0.0-4.0); HEMATOCRIT 47.6 % (39.0-51.0); HEMO FLAGS DIFF FINAL; LYMPH % 26.5 % (9.0-44.0); LYMPHOCYTE # 2.1 TH/MM3 (1.0-4.8); MEAN CELL VOLUME 87.6 FL (80.0-100.0); MEAN CORPUSCULAR HEMOGLOBIN 29.3 PG (27.0-34.0); MEAN CORPUSCULAR HGB CONC 33.5 % (32.0-36.0); MONO % 6.3 % (0.0-8.0); NEUT % 65.4 % (16.0-70.0); PLATELET COUNT 360 TH/MM3 (150-450); RED BLOOD COUNT 5.44 MIL/MM3 (4.50-5.90); RED CELL DISTRIBUTION WIDTH 17.5 % (11.6-17.2); WHITE BLOOD COUNT 7.9 TH/MM3 (4.0-11.0)
[2017-01-15 14:10] LABS: INTERNATIONAL NORMALIZED RATIO 0.9 RATIO
--- NOTE | 2017-01-15 14:25 | RADRPT ---
EXAM DATE/TIME: 01/15/2017 14:15 [facility] COMPARISON: No previous studies available for comparison. INDICATIONS : Evaluate for pneumonia, pneumothorax, or communicable disease. Pre op for reversal on colostomy. MEDICAL HISTORY : None. SURGICAL HISTORY : None. ENCOUNTER: Initial ACUITY: 1 day PAIN SCORE: 0/10 LOCATION: Bilateral chest FINDINGS: PA and lateral views of the chest demonstrate the lungs to be symmetrically aerated without evidence of mass, infiltrate or effusion. The cardiomediastinal contours are unremarkable. Osseous structure s are intact. CONCLUSION: No acute disease. Jered Jack MD FACR on January 15, 2017 at 14:23 Board Certified Radiologist. This report was verified electronically.
[2017-01-15 14:29] LABS: ANION GAP 7 MEQ/L (5-15); AST (GOT) 14 U/L (15-37); BLOOD UREA NITROGEN 8 MG/DL (7-18); CHLORIDE 105 MEQ/L (98-107); GLOMERULAR FILTRATION RATE 127 ML/MIN (>89); GLUCOSE,FASTING 102 MG/DL (74-99); POTASSIUM 4.6 MEQ/L (3.5-5.1); SODIUM (NA) 140 MEQ/L (136-145)
[2017-01-15 14:30] LABS: ALT (GPT) 21 U/L (12-78)
[2017-01-15 14:32] LABS: ALKALINE PHOSPHATASE 91 U/L (45-117); TOTAL BILIRUBIN ADULT 0.4 MG/DL (0.2-1.0)
[2017-01-15 14:46] LABS: BLOOD, URINE NEG (NEG); COMMENT (UR) CULT NOT INDICATED; CULTURE IF INDICATED CULT NOT INDICATED; GLUCOSE,URINE NEG (NEG); KETONE, URINE NEG (NEG); MUCUS URINE FEW /lpf (OCC); NITRITE,URINE NEG (NEG); SQUAMOUS EPITHELIAL CELL URINE <1 /hpf (0-5); URINE COLOR YELLOW (YELLW/STRAW)
--- NOTE | 2017-01-16 16:48 | EKG ---
Date Performed: 01/15/2017 Time Performed: 13:41:31 PTAGE: 76 years EKG: Sinus rhythm NONSPECIFIC ST & T-WAVE ABNORMALITY Since previous tracing, no significant change noted BORDERLINE E CG PREVIOUS TRACING : 11/02/2016 05.51.14 DOCTOR: Nupur Pimentel Interpretating Date/Time 01/16/2017 17:24:44
== END ==
LOC: CPRE 13:04
PROVIDERS: ATTEND Colon & Rectal Surgery
DX: Z01.812 Encounter for preprocedural laboratory examination (principal); Z01.810 Encounter for preprocedural cardiovascular examination; Z01.811 Encounter for preprocedural respiratory examination; K57.32 Diverticulitis of large intestine without perforation or abscess without bleeding; R94.31 Abnormal electrocardiogram [ECG] [EKG]; Z79.01 Long term (current) use of anticoagulants; E87.6 Hypokalemia; E78.5 Hyperlipidemia, unspecified; I25.2 Old myocardial infarction; I50.40 Unspecified combined systolic (congestive) and diastolic (congestive) heart failure; R53.83 Other fatigue; Z12.11 Encounter for screening for malignant neoplasm of colon
CPT/HCPCS: 36415; 71020; 80053; 81001; 85025; 85610; 85730; 93005